=== PATIENT | female | born 1995 | race Caucasian/White ===

== ENCOUNTER → 2018-03-22 18:51 | Outpatient (CLI) | payer BC, SELFPAY ==
[2018-03-22 16:55] VITALS: BMI 20.4
[2018-03-22 21:42] LABS: Chlamydia Trachomatis by PCR Negative (Negative); Neisserai gonorrhoeae by PCR Negative (Negative); Probe Check PASS; Sample Adequacy Control PASS; Specimen Processing Control PASS
[2018-03-26 08:36] LABS: HPV Reflexed? NOT INDICATED
== END ==
PROVIDERS: Family Provider Student in an Organized Health Care Education/Training Program; PCP Student in an Organized Health Care Education/Training Program; Referring Provider Nurse Practitioner Women's Health; Visit Provider Nurse Practitioner Women's Health
DX: Z34.90 Encounter for supervision of normal pregnancy, unspecified, unspecified trimester (principal); L93.0 Discoid lupus erythematosus; Z12.4 Encounter for screening for malignant neoplasm of cervix
CPT/HCPCS: 87086; 87088; 87491; 87591; 87624; 88175; G0145

== ENCOUNTER → 2018-03-23 13:08 | Outpatient (CLI) | payer BC, SELFPAY ==
[2018-03-22 16:55] VITALS: BMI 20.4
[2018-03-23 14:22] LABS: Absolute Lymphocyte Count 1.29 X10^3/ul (0.83-4.51); Absolute Neutrophil Count 2.6 X10^3/uL (2.0-7.7); Basophil# 0.02 X10^3/uL; Basophil% 0.5 % (0-1); Eosinophil# 0.05 X10^3/uL; Eosinophils% 1.1 % (0-5); Hematocrit 36.6 % (37-47); Hemoglobin 12.5 g/dl (12.0-15.0); Lymphocyte # 1.29 X10^3/ul (4.0); Lymphocyte % 29.1 % (19-41); Mean Corp Hgb Conc 34.2 g/gl (32-36); Mean Corpuscular Hgb 30.4 pg (27.0-32.0); Mean Corpuscular Volume 89.1 fL (81-99); Mean Platelet Vol. 9.8 fl (6.2-12.0); Monocyte# 0.46 X10^3/uL; Monocyte% 10.4 % (0-10); Neutrophil # 2.61 X10^3/uL (2.7-7.7); Neutrophil % 58.9 % (47-70); POSITIVE COUNT NO; POSITIVE DIFFERENTIAL NO; POSITIVE MORPHOLOGY NO; Platelet Count 249 K/mm3 (150-450); RBC Distribution Width CV 12.4 % (11.6-14.6); RBC Distribution Width SD 39.6 fl (35.1-43.9); Red Blood Count 4.11 M/mm3 (4.2-5.4); White Blood Count 4.4 K/mm3 (4.4-11.0)
[2018-03-23 14:30] LABS: ALB/GLOB Ratio 1.2 RATIO (0.9-2.4); AST(SGOT) 12 U/L (15-37); Alanine Aminotransfer ALT/SGPT 22 U/L (13-56); Albumin, Serum 3.7 g/dL (3.2-5.0); Alkaline Phosphatase 53 U/L (45-117); Anion Gap 10 (5-15); BUN 9 mg/dL (7-18); BUN/Creat Ratio 14.1 RATIO (10-20); Calcium,Total 8.7 mg/dL (8.5-10.1); Chloride 105 mmol/L (98-107); Creatinine, Serum 0.64 mg/dL (0.55-1.02); EST Glomerular Filtration Rate 121 mL/min (>60); Est Glom Filt Rate - Afr Amer 146 mL/min (>60); Globulin 3.1 g/dL (2.2-4.2); Glucose 51 mg/dL (74-106); Potassium 3.5 mmol/L (3.5-5.1); Protein, Total 6.8 g/dL (6.4-8.2); Sodium Level 140 mmol/L (136-145)
[2018-03-23 14:32] LABS: Protein, Urine (Random) 6.3 mg/dL (<11.9); Protein:Creat Ratio 77 mg/g CRE (0-200)
[2018-03-23 15:15] LABS: HIV - WCH Non-Reactive (Nonreactive); Rubella IgG 467.5 IU/mL
[2018-03-25 14:06] LABS: Dilute Prothrombin Time (dPT) 35.3 sec (0.0-55.0); Dilute Russell Viper Venom 33.5 sec (0.0-47.0)
[2018-03-26 02:02] LABS: Rapid Plasmin Reagin (RPR) NONREACTIVE (NONREACTIVE)
[2018-03-26 08:30] LABS: HEPATITIS B SURFACE AG Negative (Negative); Interpretation Comment: (.)
== END ==
PROVIDERS: Nurse Practitioner Women's Health; Family Provider Student in an Organized Health Care Education/Training Program; PCP Student in an Organized Health Care Education/Training Program; Referring Provider Nurse Practitioner; Visit Provider Nurse Practitioner
DX: O26.899 Other specified pregnancy related conditions, unspecified trimester (principal); L93.0 Discoid lupus erythematosus; Z3A.00 Weeks of gestation of pregnancy not specified
CPT/HCPCS: 36415; 80053; 82570; 84156; 85025; 86592; 86703; 86762; 86850; 86900; 87340

== ENCOUNTER → 2018-05-12 14:10 | Outpatient (CLI) | payer BC, SELFPAY ==
[2018-04-19 11:02] VITALS: BMI 20.4
== END ==
PROVIDERS: Family Provider Student in an Organized Health Care Education/Training Program; PCP Student in an Organized Health Care Education/Training Program; Referring Provider Nurse Practitioner Women's Health; Visit Provider Nurse Practitioner Women's Health
DX: Z31.430 Encounter of female for testing for genetic disease carrier status for procreative management (principal); Z34.81 Encounter for supervision of other normal pregnancy, first trimester
CPT/HCPCS: 36415

== ENCOUNTER → 2018-08-09 | Outpatient (CLI) | payer BC, SELFPAY ==
[2018-08-09 14:35] VITALS: BMI 23.7
[2018-08-09 15:23] LABS: Absolute Lymphocyte Count 1.17 X10^3/ul (0.83-4.51); Absolute Neutrophil Count 5.8 X10^3/uL (2.0-7.7); Basophil# 0.01 X10^3/uL; Basophil% 0.1 % (0-1); Eosinophil# 0.06 X10^3/uL; Eosinophils% 0.8 % (0-5); Hematocrit 34.1 % (37-47); Hemoglobin 11.6 g/dl (12.0-15.0); Lymphocyte # 1.17 X10^3/ul (4.0); Lymphocyte % 15.6 % (19-41); Mean Corpuscular Hgb 30.8 pg (27.0-32.0); Mean Corpuscular Volume 90.5 fL (81-99); Mean Platelet Vol. 9.1 fl (6.2-12.0); Monocyte# 0.43 X10^3/uL; Monocyte% 5.7 % (0-10); Neutrophil # 5.79 X10^3/uL (2.7-7.7); Neutrophil % 77.3 % (47-70); Platelet Count 215 K/mm3 (150-450); RBC Distribution Width SD 42.5 fl (35.1-43.9); Red Blood Count 3.77 M/mm3 (4.2-5.4); White Blood Count 7.5 K/mm3 (4.4-11.0)
[2018-08-09 15:24] LABS: POSITIVE COUNT NO; POSITIVE DIFFERENTIAL NO; POSITIVE MORPHOLOGY NO
[2018-08-09 15:33] LABS: Glucose Challenge Gest 1H 50g 140 mg/dL (70-140)
== END | disposition home or self-care (01) ==
PROVIDERS: Family Provider Student in an Organized Health Care Education/Training Program; PCP Student in an Organized Health Care Education/Training Program; Visit Provider Nurse Practitioner Women's Health
DX: Z34.90 Encounter for supervision of normal pregnancy, unspecified, unspecified trimester (principal)
CPT/HCPCS: 36415; 82950; 85025

== ENCOUNTER → 2018-08-17 | Outpatient (CLI) | payer BC, SELFPAY ==
[2018-08-09 14:35] VITALS: BMI 23.7
[2018-08-17 13:05] LABS: Glucose GTT-Gestational 1 Hr 106 mg/dL (<190)
[2018-08-17 13:05] LABS: Glucose GTT-Gestation. Fasting 72 mg/dL (<105)
[2018-08-17 13:14] LABS: Glucose GTT-Gestational 2 Hr 76 mg/dL (<165)
[2018-08-17 14:22] LABS: Glucose GTT-Gestational 3 Hr 93 L (<145)
== END | disposition home or self-care (01) ==
LOC: LAB 09:58
PROVIDERS: Family Provider Student in an Organized Health Care Education/Training Program; PCP Student in an Organized Health Care Education/Training Program; Referring Provider Obstetrics & Gynecology; Visit Provider Obstetrics & Gynecology
DX: O99.810 Abnormal glucose complicating pregnancy (principal); Z3A.00 Weeks of gestation of pregnancy not specified
CPT/HCPCS: 36415; 82951; 82952

== ENCOUNTER → 2018-10-11 | Outpatient (CLI) | payer BC, SELFPAY ==
[2018-10-11 14:00] VITALS: BMI 23.7
== END | disposition home or self-care (01) ==
LOC: LABSPEC 16:57
PROVIDERS: Family Provider Student in an Organized Health Care Education/Training Program; PCP Student in an Organized Health Care Education/Training Program; Referring Provider Obstetrics & Gynecology; Visit Provider Obstetrics & Gynecology
DX: Z34.93 Encounter for supervision of normal pregnancy, unspecified, third trimester (principal)
CPT/HCPCS: 87081

== ENCOUNTER 2018-10-28 16:27 | Outpatient (CLI) | payer BC, MEDICAID, SELFPAY ==
[2018-10-25 13:20] VITALS: BMI 26.7
[2018-10-28 17:11] VITALS: BMI 26.2
--- NOTE | 2018-11-03 02:53 | OB.TRI.PN ---
Progress Notes Date of Service: 10/28/18 Progress Note: decreased movememnt fht 130 moderate variability reactive no decelerations category I tracing [place]: no regular a/p decreased movememnt reactive nst dc home kick counts
== END 2018-10-28 18:05 | disposition home or self-care (01) ==
LOC: WPOUT 16:45 → WP 16:46
PROVIDERS: Family Provider Student in an Organized Health Care Education/Training Program; PCP Student in an Organized Health Care Education/Training Program; Referring Provider Obstetrics & Gynecology; Visit Provider Obstetrics & Gynecology
DX: O36.8190 Decreased fetal movements, unspecified trimester, not applicable or unspecified (principal); Z3A.00 Weeks of gestation of pregnancy not specified
CPT/HCPCS: 59025; 59050; 99218; G0378

== ENCOUNTER → 2018-11-01 14:05 | Outpatient (CLI) | payer BC, MEDICAID, SELFPAY ==
[2018-10-25 13:20] VITALS: BMI 26.7
[2018-10-28 17:11] VITALS: BMI 26.2
--- NOTE | 2018-11-01 14:07 | US_ITS ---
STUDY: SECOND AND THIRD TRIMESTER OBSTETRICAL ULTRASOUND - LIMITED REASON FOR EXAM: Female, 23 years old. Routine survey. LMP: Unknown. PRIOR ULTRASOUND: None. TECHNIQUE: Transabdominal TECHNICAL QUALITY: Adequate. FINDINGS: There is a single intrauterine fetus. The fetus is in a cephalic presentation. There is demonstrated cardiac activity with a heart rate of 140 bpm. There is a normal amniotic fluid volume. The largest amniotic fluid pocket measures 5.4 cm. The amniotic fluid index (YUNG) is 10.83 cm. The placenta is anterior in location and is not low lying. There are Grade 2 placental changes. The cervix measures 4.2 cm in length. BIOMETRY: BPD: 8.89 cm: 36 weeks, 0 days HC: 31.53 cm: 35 weeks, 3 days AC: 33.81 cm: 37 weeks, 5 days FL: 7.54 cm: 38 weeks, 4 days age by current US: 37 weeks, 0 days. BACILIO by current US: 11/22/2018. Estimated weight: 3208 grams, +/- 468 grams, 28 percentile. Gender: Indeterminant US/OB Limited With Biometrics IMPRESSION: Single live intrauterine at 37 weeks, 0 days by current ultrasound with BACILIO of 11/22/2018. Heart rate 140 bpm. No suspicious sonographic findings Electronically Signed: Danis Brown MD at 16:21 EDT , Service support ,
== END ==
PROVIDERS: Family Provider Student in an Organized Health Care Education/Training Program; PCP Student in an Organized Health Care Education/Training Program; Referring Provider Obstetrics & Gynecology; Visit Provider Obstetrics & Gynecology
DX: Z34.00 Encounter for supervision of normal first pregnancy, unspecified trimester (principal)
CPT/HCPCS: 76816

== ENCOUNTER → 2018-11-03 | Outpatient (CLI) | payer BC, MEDICAID, SELFPAY ==
[2018-11-03 08:44] VITALS: BMI 26.2
--- NOTE | 2018-11-03 11:33 | US_ITS ---
STUDY: SECOND AND THIRD TRIMESTER OBSTETRICAL ULTRASOUND - LIMITED REASON FOR EXAM: Female, 23 years old. Amniotic fluid index only. LMP: January 31, 2018. PRIOR ULTRASOUND: Comparison is made with prior examination dated November 01, 2018. TECHNIQUE: Transabdominal TECHNICAL QUALITY: Adequate. FINDINGS: There is a single intrauterine fetus. The fetus is in a cephalic presentation. There is demonstrated cardiac activity with a heart rate of 129 bpm. There is a normal amniotic fluid volume. The largest amniotic fluid pocket measures 4.8 cm. The amniotic fluid index (YUNG) is 10.8 cm. The placenta is anterior in location and is not low lying. There are Grade 2 placental changes. The cervix was not measured due to positioning. Age by LMP: 39 weeks, 3 days. BACILIO by LMP: November 07, 2018. age by prior US: 37 weeks, 2 days. BACILIO by prior US: November 22, 2018. US/OB Limited (No Biometrics) IMPRESSION: Normal amniotic fluid. Electronically Signed: Tal Zhao, at 10:43 EDT , Service support ,
== END | disposition home or self-care (01) ==
LOC: OPUS 11:32
PROVIDERS: Family Provider Student in an Organized Health Care Education/Training Program; PCP Student in an Organized Health Care Education/Training Program; Referring Provider Obstetrics & Gynecology; Visit Provider Obstetrics & Gynecology
DX: Z34.93 Encounter for supervision of normal pregnancy, unspecified, third trimester (principal)
CPT/HCPCS: 76815

== ENCOUNTER 2018-11-09 13:58 | Inpatient (IN) | payer BC, MEDICAID, SELFPAY ==
[2018-11-09 13:32] VITALS: BMI 26.2
[2018-11-09 16:14] VITALS: BMI 27.3
[2018-11-09] MEDS: Lactated Ringers 1,000 ML 50 ML IV ×3 (16:18→23:14)
[2018-11-09] MEDS: Oxytocin 30 units/NS 500 ml 30 UNITS/500 ML IV.SOLN IV (16:30)
[2018-11-09 16:41] LABS: Absolute Lymphocyte Count 1.54 X10^3/ul (0.83-4.51); Absolute Neutrophil Count 7.7 X10^3/uL (2.0-7.7); Basophil# 0.02 X10^3/uL; Basophil% 0.2 % (0-1); Eosinophil# 0.06 X10^3/uL; Eosinophils% 0.6 % (0-5); Hematocrit 37.4 % (37-47); Hemoglobin 12.8 g/dl (12.0-15.0); Lymphocyte # 1.54 X10^3/ul (4.0); Lymphocyte % 15.1 % (19-41); Mean Corp Hgb Conc 34.2 g/gl (32-36); Mean Corpuscular Hgb 30.1 pg (27.0-32.0); Mean Platelet Vol. 10.4 fl (6.2-12.0); Monocyte% 7.8 % (0-10); Neutrophil # 7.69 X10^3/uL (2.7-7.7); Neutrophil % 75.3 % (47-70); Platelet Count 227 K/mm3 (150-450); RBC Distribution Width CV 13.3 % (11.6-14.6); RBC Distribution Width SD 41.7 fl (35.1-43.9); Red Blood Count 4.25 M/mm3 (4.2-5.4); White Blood Count 10.2 K/mm3 (4.4-11.0)
[2018-11-09 16:44] LABS: POSITIVE COUNT NO; POSITIVE DIFFERENTIAL NO; POSITIVE MORPHOLOGY NO
[2018-11-09] MEDS: Nalbuphine 10 MG/ML Ampul IV (18:32)
[2018-11-09] MEDS: Ondansetron 4 MG/2 ML Vial IV (19:36)
[2018-11-09] MEDS: fentaNYL-bupivacaine (epidural) 100 ML BAG EPIDURAL (22:55)
--- NOTE | 2018-11-09 23:09 | HP.PCM_ITS ---
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 anatomy us- bl choroid plexus cysts, nl (7) Supervision of normal first Status: Acute Qualifiers: Comment: PRR BACILIO 11/07/18 girl Black INGRID Maldonado History and Physical Date of Admission: 11/09/18 Intake Vital Signs 11/09/18 Body Mass Index (BMI) 26.2 11/09/18 Height 5 ft 4 in 11/09/18 Weight: 159 lb 8 oz 11/09/18 Body Mass Index (BMI) 27.3 11/09/18 Blood Pressure 130/72 H 11/09/18 Blood Pressure Location Rt brachial 10/18/18 Body Mass Index (BMI) 26.7 Intake Visit Reasons: 41 WEEK OB Medical Services Assistant Required: No Is patient in pain?: No Allergies No Known Allergies Allergy (Verified 11/09/18 13:32) Medications vitamin,calcium,thtaanwv-jzit-ttmnb acid tablet 1 tab PO DAILY 03/22/18 [History Confirmed 11/09/18] Last Menstral Period: 01/12/18 Zika: Zika virus screening: Negative : No PFSH PFSH Medical History Anxiety (Acute) Depression (Acute) Discoid lupus (Acute) Surgical History H/O foot surgery (Acute) Family History Grandmother Multiple sclerosis Grandfather Cancer Social History (Updated 11/09/18 @ 13:55 by Lucy Ashley MD) current occupational status: employed current occupation: [employer] Smoking Status: Never smoker alcohol intake: never substance use type: does not use what type of physical activity do you participate in: none seatbelt use: always do you feel safe at home: Yes additional social history: [employer] [facility] Pregancy History 1 Elective abortions Hx Para Spontaneous abortions Hx # Term Pregnancies Ectopic pregnancies Hx # Pregnancies Multiple births # of living children HPI 41 WEEK OB: Details: LETTY ANDREA is a 23 year old who presents for routine OB visit. fundal height is low and yung in office today is oligohydramnios at 5 cm OB Visit BACILIO Calculator Estimated Delivery Date Method Current WG Current Estimate 11/07/18 Ultrasound #1 40w 2d Expected Delivery Route/Plan Specific Issue/Plans flu vaccine: given tdap vaccine: given rhogam: na LARC form signed: declines labor support person: Colt pain management: epidural cut cord/dad catch: yes : yes PP control planned: considering monika special requests: [] Initial Weight: 125 lb Date EGA Weight BP Urine Prot Glucose FHR FuHt Pres Mov CTX Dilation Effaced St Visit Note 04/19/18 11w 1d 124 lb 4 oz (-12 oz) 116/64 Negative Negative 166 No VB, LOF, cramping. Nausea improved. Fatigue persists 05/17/18 15w 1d 123 lb (-2 lb) 112/72 Negative Negative 150 no vb cramping NIPT drawn last week- await results. discussed NTD- considering 06/14/18 19w 1d 131 lb 4 oz (+6 lb 4 oz) 92/70 145 no vb lof good fm no regular ctx 07/12/18 23w 1d 138 lb 2 oz (+13 lb 2 oz) 110/68 Negative Negative 145 23 Active no vb cramping good fm 08/09/18 27w 1d 142 lb 8 oz (+17 lb 8 oz) 110/60 Negative Negative 144 27 Active absent No VB, LOF Doing well 08/24/18 29w 2d 145 lb 2 oz (+20 lb 2 oz) Negative Negative 130 30 Active no vb lof good fm, no regular ctx 09/06/18 31w 1d 146 lb 4 oz (+21 lb 4 oz) 108/70 Negative Negative 135 32 Active no vb lof good fm no reuglar ctx 09/20/18 33w 1d 149 lb 4 oz (+24 lb 4 oz) 124/68 Negative Negative 120 34 Active no vb lof good fm no regular ctx 10/01/18 34w 5d 150 lb 2 oz (+25 lb 2 oz) 116/90 112/78 Negative Negative 130 35 Active no vb lof good fm n oregular ctx 10/11/18 36w 1d 153 lb (+28 lb) 114/82 125 36 Cephalic Active 1 2: 0 -4 no vb lof good fm no regu lar ctx gbs today 10/18/18 37w 1d 156 lb (+31 lb) 130/88 Negative Negative 144 37 Cephalic Active 1: . -4 No regular CTX. NO VB, LO F. Good FM 10/25/18 38w 1d 157 lb (+32 lb) 104/82 Negative Negative 140 37 Cephalic Active 1 Yes -3 co back pain, no vb lof good fm no re gular ctx. 11/03/18 39w 3d 159 lb (+34 lb) 114/82 Negative Negative 140 37 Cephalic Active absent 2 Yes no vb lof good fm n oregular ctx no vb lof good fm n oregular ctx very uncomfortable signfiicant back pain. nl growth us last week. recommend checking YUNG due to FH measurment. plan IOL ne xt week fb/pitocin 11/09/18 40w 2d 159 lb 8 oz (+34 lb 8 oz) 130/72 140 37 Cephalic Active occasional 2.5 Yes -2 no vb lof good fm no regular ctx Visit Notes Visit Date: 11/09/18 ??no vb lof good fm no regular ctx ??Lucy Ashley MD on 11/09/18 Visit Date: 11/03/18 ??no vb lof good fm n oregular ctx very uncomfortable signfiicant back pain. nl growth us last week. recommend checking YUNG due to FH measurment. plan IOL next week fb/pitocin ??Lucy Ashley MD on 11/03/18 ??no vb lof good fm n oregular ctx ??Lucy Ashley MD on 11/03/18 Visit Date: 10/25/18 ??co back pain, no vb lof good fm no regular ctx. ??Lucy Ashley MD on 10/25/18 Visit Date: 10/18/18 ??No regular CTX. NO VB, LOF. Good FM ??SUSAN Khan on 10/18/18 Visit Date: 10/11/18 ??no vb lof good fm no regular ctx gbs today ??Lucy Ashley MD on 10/11/18 Visit Date: 10/01/18 ??no vb lof good fm n oregular ctx ??Lucy Ashley MD on 10/01/18 Visit Date: 09/20/18 ??no vb lof good fm no regular ctx ??Lucy Ashley MD on 09/20/18 Visit Date: 09/06/18 ??no vb lof good fm no reuglar ctx ??Lucy Ashley MD on 09/06/18 Visit Date: 08/24/18 ??no vb lof good fm, no regular ctx ??Lucy Ashley MD on 08/24/18 Visit Date: 08/09/18 ??No VB, LOF Doing well ??Marian Solomon NP-C on 08/09/18 Visit Date: 07/12/18 ??no vb cramping good fm ??Lucy Ashley MD on 07/12/18 Visit Date: 06/14/18 ??no vb lof good fm no regular ctx ??Lucy Ashley MD on 06/14/18 Visit Date: 05/17/18 ??no vb cramping NIPT drawn last week- await results. discussed NTD- considering ??Lucy Ashley MD on 05/17/18 Visit Date: 04/19/18 ??No VB, LOF, cramping. Nausea improved. Fatigue persists ??ROLLY KhanC on 04/19/18 ACOG First Trimester First Trimester: Desire for , Alcohol, Tobacco Cessation, Illicit/Recreational Drug/Substance Use, Intimate Partner Violence, Barriers to care, Unstable Housing, Communication Barriers, Environmental/Work Hazards, Anticipated Course of Care, Toxoplasmosis Precations, Use of Any medications, Sexual activity, Exercise, Dental Care, Sauna/Hot tub use, Seat Belt use, Childbirth classes/Hospital facilities, , Travel, Indications for US and Screening for Aneuploidy Second Trimester Second Trimester: Signs and Symptoms of Labor, Selecting a care provider, Reproductive Life Planning, Care Planning, Tobacco Cessation, Depression/Anxiety and Intimate Partner Violence Third Trimester Third Trimester: Pain Management Plans, Labor support person(s), Immediate Larc, Movement Monitoring and Feeding Yes B reastfeeding; discussed Trial of Labor after Counseling or discussed Circumcision preference Diagnostics Diagnostics Labs Hct 34.1 % (37-47) L 08/09/18 Hgb 11.6 g/dl (12.0-15.0) L 08/09/18 Obstetrics Ultrasound 11/03/18 Glucose 1 Hr 50 gm 140 mg/dL (70-140) 08/09/18 Details: HIV: Urine Culture: Sequential Screen: NIPT Screen: ROS Const Reports system reviewed and no additional complaints, except as docu Card Reports system reviewed and no additional complaints, except as docu Resp Reports system reviewed and no additional complaints, except as docu GI Reports system reviewed and no additional complaints, except as docu, Reports nausea Reports system reviewed and no additional complaints, except as docu Musc Reports system reviewed and no additional complaints, except as docu Exam Const General: cooperative, healthy appearing, comfortable, anxious HENMT Head: normal to inspection Nose: external nose normal Face and sinus: normal facial exam Neck Neck: normal visual inspection, full ROM, no lymphadenopathy Thyroid: thyroid normal Chest Chest palpation & inspection: normal inspection of the chest Resp Effort & Inspection: normal respiratory effort GI Inspection: normal to inspection Palpation: soft, other (gravid uterus) Other: vertex and appropriate size for gestational age Other: Cervical Exam: Extrem General: pedal edema Assessment & Plan Problems 1. Abnormal glucose complicating puerperium O99.815 3 hr GTT- normal 2. Encounter for supervision of normal first in third trimester Z34.03 PRR BACILIO 11/07/18 girl Black BF Colt Maldonado 3. 38 weeks gestation of Z3A.38 NIPT- low risk-female, carrier, ntd screening declined. anatomy us- bl choroid plexus cysts, nl 4. Depression with anxiety F41.8 no meds 5. Exercise-induced asthma J45.990 6. Discoid lupus L93.0 Lupus panel neg Plan plan IOL oligohydramnios plan pitocin and epi PRN Orders Orders: POC Urinalysis 2 Dip (Clinic) Today Coding Level of Care Code OB Routine Diagnoses Abnormal glucose complicating puerperium O99.815 Encounter for supervision of normal first in third trimester Z34.03 ??Trimester: third trimester 38 weeks gestation of Z3A.38 ??Weeks of gestation: 38 weeks Depression with anxiety F41.8 Exercise-induced asthma J45.990 Discoid lupus L93.0 UPDATE- I have seen the patient and performed any clinically relevant updates to the history and physical exam. Lucy Ashley MD
[2018-11-10] MEDS: Ondansetron 4 MG/2 ML Vial IV (01:15)
[2018-11-10] MEDS: fentaNYL-bupivacaine (epidural) 100 ML BAG EPIDURAL (02:39)
[2018-11-10] MEDS: Oxytocin 30 units/NS 500 ml 30 UNITS/500 ML IV.SOLN 334 UNITS IV (04:17)
[2018-11-10] MEDS: Oxytocin 30 units/NS 500 ml 30 UNITS/500 ML IV.SOLN 167 UNITS IV (04:47)
[2018-11-10] MEDS: Naproxen 250 MG Tablet 500 MG PO (07:31)
[2018-11-10 08:10] VITALS: BP 104/56; PULSE 88; RESP 20; TEMP 37.3; O2SAT 95
--- NOTE | 2018-11-10 09:04 | PCM.OPRPT ---
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 anatomy us- bl choroid plexus cysts, nl (7) Supervision of normal first Status: Acute Qualifiers: Comment: PRR BACILIO 11/07/18 girl Black BF Colt Malodnado Vaginal Delivery Maternal Presentation: Active Labor iol oligo 40w3d Method of Induction: Pitocin Amniotic Membrane Rupture Type: Artificial Amniotic Fluid Description: Clear Final BACILIO: 11/07/18 Gestational age: 40 Weeks and 3 Days Date of Procedure: 11/10/18 Pre-Operative Diagnosis: iol oligo Post-Operative Diagnosis: same Surgery/ Procedure Performed: Spontaneous Vaginal Delivery Type of Anesthesia: Epidural Description of Procedure: Patient began pushing and delivered the head in the KARLA presentation. The head was delivered atraumatically. The anterior and posterior shoulders delivered without complication followed by the rest of the and the was placed on the maternal abdomen. Delayed cord clamping was employed for approximately 60 seconds. Cord was clamped and cut and gentle traction was applied to the cord and the placenta delivered spontaneously immediately following it was noted to be intact with three-vessel cord. The perineum and vagina were inspected and noted to have a small 1st degree perineal laceration repaired with 3-0 vicryl rapide. EBL was 300 cc. Patient and infant tolerated delivery well. Presentation: KARLA Placental Delivery Description: Spontaneous Placenta Disposition: [facility] Cord Vessel Description: 3 Vessels Cord Entanglement: None Estimated Blood Loss: 300 Infant A gender: Female Episiotomy Description: None Laceration: Perineal Extension/lac, 1st degree Medications given after delivery: IV Pitocin Complications: None
[2018-11-10 13:10] VITALS: BP 109/70; PULSE 70; TEMP 36.8
[2018-11-10 15:30] VITALS: BP 101/64; PULSE 79; TEMP 36.5
[2018-11-10 20:02] VITALS: BP 107/77; PULSE 72; RESP 18; TEMP 36.2; O2SAT 97
[2018-11-11 00:15] VITALS: BP 115/71; PULSE 83; RESP 16; TEMP 36.6
[2018-11-11] MEDS: Naproxen 250 MG Tablet 500 MG PO ×3 (00:31→20:10)
[2018-11-11 04:55] VITALS: BP 106/76; PULSE 86; RESP 18; TEMP 36.5
[2018-11-11 08:00] VITALS: BP 109/72; PULSE 81; RESP 14; TEMP 36.6
[2018-11-11 12:00] VITALS: BP 113/70; PULSE 94; RESP 14; TEMP 36.6
--- NOTE | 2018-11-11 12:07 | PCM.PN.OB ---
Patient Problems: Active and Suspected Problems (Last Reviewed 11/09/18 @ 13:25 by Kaley Brown) Oligohydramnios (Acute) Subjective: doing well no complaints pain controlled no CP SOB N V ambulating well tolerating po lochia moderate, going well - Physical Exam General: Alert, Oriented x3 Vital Signs Temp Pulse Resp BP Pulse Ox 97.8 F 81 14 109/72 97 11/11/18 08:00 11/11/18 08:00 11/11/18 08:00 11/11/18 08:00 11/10/18 20:02 Oxygen Delivery Method Room Air Weight: 159 lb Body Mass Index (BMI) 27.3 Intake and Output for Last 24 Hours 11/09/18 11/10/18 11/11/18 23:59 23:59 23:59 Intake Total 2290 / 2290 1707 / 1707 Output Total 1000 / 1000 2200 / 2200 Balance 1290 / 1290 -493 / -493 Medical Necessity - Tobacco Use Smoking Status: Never smoker Assessment/Plan All Active Problems (Last Reviewed 11/09/18 @ 13:25 by Kaley Brown) Oligohydramnios (Acute) Abnormal glucose complicating puerperium (Acute) Supervision of normal first (Acute) (Acute) Depression with anxiety (Acute) Exercise-induced asthma (Acute) Discoid lupus (Acute) Nausea/vomiting in (Resolved) s/p PPD # 1 1. routine post delivery care 2. breast feeding- support given 3. rh positive 4. rubella immune
[2018-11-11] MEDS: Senna/Docusate Sodium 1 Tablet PO (20:10)
[2018-11-11 20:12] VITALS: BP 102/69; PULSE 86; RESP 16; TEMP 37.3; O2SAT 98
--- NOTE | 2018-11-12 01:56 | DCINST_ITS ---
Discharge Diet: No Restrictions Discharge Activity: Return to Normal Activity, May not drive while taking narcotic pain medications., May Shower May resume sexual activity in: 4-6 weeks Call your doctor if your incision/area has: Continuous Slow Oozing, Sudden Increased Bleeding, Increased Pain/ Swelling, Increased Redness, Foul Smelling Discharge Additional Instructions: If you experience any of the following, contact your healthcare provider. * Bleeding that soaks a pad every hour for 2 hours * Fever 100.4 or higher * Unrelieved incision or abdominal pain * Swelling, redness, discharge or bleeding from your incision or episiotomy site * Your incision begins to separate * Problems urinating (including inability to urinate or burning while urinating). * Visual changes * Severe headache * Flu-like symptoms * Pain or redness in one of both of your breasts * Pain, warmth, tenderness or swelling in your legs, especially the calf area * Frequent nausea and vomiting * Symptoms of depression or anxiety If you experience any of the following, call 911 or go to the nearest Emergency Room. * Chest pain * Problems breathing * Seizure activity * Partial or complete paralysis of a body part, slurred speech, weakness or drooping of the face, or a sudden inability to walk or hold your balance Allergies/Adverse Reactions: Allergies No Known Allergies Allergy (Verified 11/09/18 13:32) Medications to take at Discharge vitamin,calcium,zmujxdbr-jrgt-dymem acid tablet 1 tab PO DAILY 03/22/18 Naproxen [Naprosyn] 250 - 500 mg PO Q8H PRN PRN #30 tab 11/12/18 The following prescriptions were given: Naproxen [Naprosyn] 250 - 500 mg PO Q8H PRN PRN #30 tab PRN Reason: MILD PAIN Transmission Status: Pending to [facility] Please Follow Up With: Lucy Ashley MD - [phone] When: Call to make an appointment with your doctor in 6 weeks. If you had elevated Blood pressure or 4th degree laceration you will need to be seen in 2 weeks. Primary Care Physician: Kenneth Marti DO [Primary Care Provider] - Test Results: Test results from this visit will be discussed in further detail at your follow- up appointment, if applicable.
--- NOTE | 2018-11-12 01:56 | PCM.DCVAG ---
Discharge Diet: No Restrictions Discharge Activity: Return to Normal Activity, May not drive while taking narcotic pain medications., May Shower May resume sexual activity in: 4-6 weeks Call your doctor if your incision/area has: Continuous Slow Oozing, Sudden Increased Bleeding, Increased Pain/ Swelling, Increased Redness, Foul Smelling Discharge Additional Instructions: If you experience any of the following, contact your healthcare provider. Bleeding that soaks a pad every hour for 2 hours Fever 100.4 or higher Unrelieved incision or abdominal pain Swelling, redness, discharge or bleeding from your incision or episiotomy site Your incision begins to separate Problems urinating (including inability to urinate or burning while urinating). Visual changes Severe headache Flu-like symptoms Pain or redness in one of both of your breasts Pain, warmth, tenderness or swelling in your legs, especially the calf area Frequent nausea and vomiting Symptoms of depression or anxiety If you experience any of the following, call 911 or go to the nearest Emergency Room. Chest pain Problems breathing Seizure activity Partial or complete paralysis of a body part, slurred speech, weakness or drooping of the face, or a sudden inability to walk or hold your balance Allergies/Adverse Reactions: Allergies No Known Allergies Allergy (Verified 11/09/18 13:32) Medications to take at Discharge vitamin,calcium,thmcjbuv-kwvy-vumiy acid tablet 1 tab PO DAILY 03/22/18 Naproxen [Naprosyn] 250 - 500 mg PO Q8H PRN PRN #30 tab 11/12/18 The following prescriptions were given: Naproxen [Naprosyn] 250 - 500 mg PO Q8H PRN PRN #30 tab PRN Reason: MILD PAIN Transmission Status: Pending to [facility] Please Follow Up With: Lucy Ashley MD - [phone] When: Call to make an appointment with your doctor in 6 weeks. If you had elevated Blood pressure or 4th degree laceration you will need to be seen in 2 weeks. Primary Care Physician: Kenneth Marti DO [Primary Care Provider] - Test Results: Test results from this visit will be discussed in further detail at your follow-up appointment, if applicable.
[2018-11-12 02:27] VITALS: BP 111/65; PULSE 81; RESP 16; TEMP 36.5; O2SAT 98
[2018-11-12 08:00] VITALS: BP 116/80; PULSE 76; RESP 16; TEMP 36.6
--- NOTE | 2018-11-12 08:37 | PCM.PN.OB ---
Patient Problems: Active and Suspected Problems (Last Reviewed 11/09/18 @ 13:25 by Kaley Brown) Oligohydramnios (Acute) Subjective: doing well no complaints pain controlled no CP SOB N V ambulating well tolerating po lochia moderate, going well - Physical Exam General: Alert, Oriented x3 Abdomen: Soft, Non Tender, Non-Distended, - - FF below U Vital Signs Temp Pulse Resp BP Pulse Ox 97.8 F 76 16 116/80 98 11/12/18 08:00 11/12/18 08:00 11/12/18 08:00 11/12/18 08:00 11/12/18 02:27 Oxygen Delivery Method Room Air Weight: 159 lb Body Mass Index (BMI) 27.3 Intake and Output for Last 24 Hours 11/10/18 11/11/18 11/12/18 23:59 23:59 23:59 Intake Total 1707 / 1707 Output Total 2200 / 2200 Balance -493 / -493 Medical Necessity - Tobacco Use Smoking Status: Never smoker Assessment/Plan All Active Problems (Last Reviewed 11/09/18 @ 13:25 by Kaley Brown) Oligohydramnios (Acute) Abnormal glucose complicating puerperium (Acute) Supervision of normal first (Acute) (Acute) Depression with anxiety (Acute) Exercise-induced asthma (Acute) Discoid lupus (Acute) Nausea/vomiting in (Resolved) s/p PPD # 2 1. routine post delivery care 2. breast feeding- support given 3. rh positive 4. rubella immune 5. home today
[2018-11-12 08:39] VITALS: BP 116/83; PULSE 79; RESP 18; TEMP 36.9
[2018-11-12] MEDS: Naproxen 250 MG Tablet 500 MG PO (09:35)
== END 2018-11-12 12:45 | disposition home or self-care (01) | DRG 807 ==
PROVIDERS: Admitting Provider Obstetrics & Gynecology; Family Provider Student in an Organized Health Care Education/Training Program; PCP Student in an Organized Health Care Education/Training Program; Referring Provider Obstetrics & Gynecology; Visit Provider Obstetrics & Gynecology
DX: O41.03X0 Oligohydramnios, third trimester, not applicable or unspecified (principal); Z37.0 Single live birth; O48.0 Post-term pregnancy; Z3A.40 40 weeks gestation of pregnancy; O70.0 First degree perineal laceration during delivery; O99.344 Other mental disorders complicating childbirth; F41.8 Other specified anxiety disorders; O75.89 Other specified complications of labor and delivery; L93.0 Discoid lupus erythematosus; J45.990 Exercise induced bronchospasm
CPT/HCPCS: 59025; 59050; 85025; 86850; 86900; 99218; J7120; G0378; J2405

== ENCOUNTER → 2020-01-18 | Outpatient (CLI) | payer MEDICAID, SELFPAY ==
[2020-01-18 16:21] VITALS: BMI 23.6
[2020-01-18 18:52] LABS: hCG Titer Quant., Serum < 1 mIU/mL (1-3)
[2020-01-21 20:07] LABS: Chlamydia By Nucleic Acid AMP Negative (Negative)
[2020-01-21 20:51] LABS: Gonococcus By Nucleic Acid AMP Negative (Negative)
== END | disposition home or self-care (01) ==
LOC: INT LAB 17:19
PROVIDERS: PCP Student in an Organized Health Care Education/Training Program; Visit Provider Obstetrics & Gynecology
DX: N92.6 Irregular menstruation, unspecified (principal); Z11.3 Encounter for screening for infections with a predominantly sexual mode of transmission
CPT/HCPCS: 36415; 84702; 87491; 87591

== ENCOUNTER 2020-01-31 10:28 | Day surgery (SDC) | payer MEDICAID, SELFPAY ==
[2020-01-18 16:21] VITALS: BMI 23.6
--- NOTE | 2020-01-30 16:59 | PCM.HPOB.BLA ---
- Problem List (1) Contraception management Status: Acute Comment: IUD No PA. Reference number [id number] (2) Malpositioned IUD Status: Acute Qualifiers: History and Physical Date of Admission: 01/31/20 Intake Vital Signs 01/18/20 BMI 23.6 01/18/20 Height 5 ft 4 in 01/18/20 Weight: 129 lb 01/18/20 BMI 22.1 01/18/20 BP 110/70 Intake Visit Reasons: check IUD placement, may have shifted Chief Complaint: iud check Triage Licensed Practical Nurse Required: No Is patient in pain?: No Allergies No Known Allergies Allergy (Verified 01/18/20 16:20) Medications fluoxetine 20 mg capsule 20 mg PO DAILY 01/18/20 [History Confirmed 01/18/20] lamotrigine 100 mg tablet 100 mg PO DAILY 01/18/20 [History Confirmed 01/18/20] levonorgestrel 20.1 mcg/24 hrs (6 yrs) 52 mg intrauterine device 1 device INTRAUTERINE ONCE 01/18/20 [History Confirmed 01/18/20] Is last menstrual period known: No Post menopausal: No Patient : No : No PFSH Medical History Anxiety (Acute) Depression (Acute) Discoid lupus (Acute) Surgical History H/O foot surgery (Acute) Family History Grandmother Multiple sclerosis Grandfather Cancer Social History (Updated 01/19/20 @ 17:[address] Lucy Ashley MD) current occupational status: employed current occupation: [employer] Smoking Status: Never smoker alcohol intake: never substance use type: does not use what type of physical activity do you participate in: none seatbelt use: always do you feel safe at home: Yes additional social history: Single HPI check IUD placement, may have shifted: Details: LETTY ANDREA is a 24 year old who presents for increased bleeding and cramping. she previously wasn't having periods with it. she is wanting to have it removed and will use something else for control. Female Reproductive History Cycle Length: >35 Control Method: iud Questions: Sexually active: Yes, Dyspareunia: Yes (cramping), PCB: No Pregancy History 1 Elective abortions Hx Para 1 Spontaneous abortions Hx # Term Pregnancies 1 Ectopic pregnancies Hx # Pregnancies Multiple births # of living children 1 Past Pregnancies Del. Date Name GA/Weeks Outcome Route Bth Weight Infant Gen Labor Lgth Anesthesia Del Antonieta Provider FOB 11/09/18 Black 40 live - full term Female epidural [facility] Marcanthony Delivery Date: 11/09/18 On 11/11/18 @ 10:36 Lorraine Bales [place] ROS Const Constitutional: Denies fatigue, fever(s), headache(s), increased appetite, poor appetite, weight gain or weight loss Cardio Card: Denies chest pain Resp Resp: Denies cough or dyspnea GI GI: Reports as per HPI; denies abdominal pain, constipation, nausea or vomiting : Reports as per HPI; denies difficulty urinating, painful urination, nipple discharge, urinary frequency, urinary incontinence, urinary hesitancy, urinary urgency, vaginal discharge, vaginal dryness, vaginal odor or vaginal itching Skin Skin/Breast: Denies change in hair, breast lump, breast pain, breast skin changes or nipple discharge Exam Const General: cooperative, healthy appearing, comfortable, no acute distress, well developed Nutritional Appearance: average body habitus Orientation: alert [facility] Head: normal to inspection, normocephalic Neck Neck: normal visual inspection, trachea midline Thyroid: thyroid normal Resp Effort & Inspection: normal respiratory effort GI Inspection: normal to inspection, non-distended Palpation: soft, no hepatosplenomegaly General: bladder normal to palpation External Female Exam: normal external appearance, normal appearance of the urethra Urethra: normal appearance of the urethra, normal palpation, no discharge Speculum Exam - Vagina: normal appearance of the vagina, normal vaginal discharge Speculum Exam - Cervix: normal appearance of the cervix, nontender Bimanual Exam- Vagina & Uterus: normal bimanual exam, uterine size normal, bladder normal to palpation, uterine shape normal, No cervical tenderness, uterine mobility normal, uterine consistency normal, normal cervical palpation, uterus non-tender Bimanual Exam- Adnexa, other: normal adnexae, adnexae mobile, no adnexal masses, pelvic support normal Pelvic Support: normal Skin General: no rashes or lesions noted Assessment & Plan Problems 1. Malpositioned intrauterine device (IUD), initial encounter T83.32XA Plan initial attempts made at removal and only strings were removed. recommend surgical removal operative hysteroscopy possible diagnostic laparosocpy. After discussing the patient's diagnosis and treatment plan options, patient wishes to proceed with surgical management. I have discussed with the patient the risks, benefits, and alternatives of the procedure which include but are not limited to risks of anesthesia, bleeding, infection, possible damage to bowel, bladder, or surrounding vasculature which could lead to additional surgery to evaluate any complications. Patient agrees to procedure and wishes to proceed. ACOG/uptodate references given for additional information regarding procedure. Orders Orders: hCG Titer Quant., Serum 01/18/20 N92.6 Coding Level of Care Code Off vis,est,level 4 Diagnoses Malpositioned intrauterine device (IUD), initial encounter T83.32XA ??Encounter type: initial encounter /UPDATE- I have seen the patient and performed any clinically relevant updates to the history and physical exam. Lucy Ashley MD
[2020-01-31] VITALS (7 sets, daily range): BP systolic 100–118; BP diastolic 73–81; PULSE 56–76; RESP 16; TEMP 35.9–36.7; O2SAT 97–100; BMI 22.4
[2020-01-31 10:56] LABS: Internal QC Validated? YES +Cl - CLEAR BKGD; Pregnancy, Urine Negative Negative
[2020-01-31] MEDS: Lactated Ringers 1,000 ML 100 ML IV (11:00)
[2020-01-31 11:17] LABS: Hematocrit 42.2 % (37-47); Hemoglobin 14.3 g/dL (12.0-15.0); Mean Corp Hgb Conc 33.9 g/dL (32-36); Mean Corpuscular Volume 91.5 fL (81-99); Mean Platelet Vol. 9.7 fl (6.2-12.0); Platelet Count 292 K/mm3 (150-450); RBC Distribution Width CV 12.1 % (11.6-14.6); RBC Distribution Width SD 40.2 fl (35.1-43.9); Red Blood Count 4.61 M/mm3 (4.2-5.4); White Blood Count 4.4 K/mm3 (4.4-11.0)
--- NOTE | 2020-01-31 11:58 | PCM.OPRPT ---
Problem List (1) Contraception management Status: Acute Comment: IUD No PA. Reference number [id number] (2) Malpositioned IUD Status: Acute Qualifiers: Report of Operation Date of Procedure: 01/31/20 Pre-Operative Diagnosis: malpoitioned iud Post-Operative Diagnosis: same Surgery/Procedure Performed:: hysteroscopic iud removal Description of Surgical Findings:: endocervical iud placed Type of Anesthesia:: Local MAC Specimen's removed: iud Drains: none Estimated Blood Loss (mL): minimal Fluids Replaced: crystalloid Description of Procedure: Patient placed under MAC local anesthesia and prepped and draped in the normal sterile fashion in the dorsolithotomy position. Cervix was dilated to allow passage of a 5 mm hysteroscope the IUD was visualized at the top of the endocervical canal bent in half and it was attempted to pass an operative hysteroscopic instrument but was unable to thread the instrument therefore direct removal with a tonsil clamp was successful at removing IUD without complication. All instruments were removed from the vagina patient was awoken taken recovery in stable condition. there was no myometrial involvement Grafts/Implants Used: none - Complications none - Admit VTE Documentation VTE Present on Admission: No VTE Mechan Device Prophylaxis: SCD's Multi Select Codes - Urinary/Genital Urinary/Genital CPT Codes: 79849 Hysteroscopic removal of FB
--- NOTE | 2020-01-31 11:59 | DCINST_ITS ---
Discharge Diet: No Restrictions Discharge Activity: Return to Normal Activity, May Shower, May Take a Tub Bath Allergies/Adverse Reactions: Allergies No Known Allergies Allergy (Verified 01/20/20 12:48) Medications to take at Discharge fluoxetine 20 mg capsule 20 mg PO DAILY 01/18/20 lamotrigine 100 mg tablet 100 mg PO DAILY 01/18/20 levonorgestrel 20.1 mcg/24 hrs (6 yrs) 52 mg intrauterine device 1 device INTRAUTERINE ONCE 01/18/20 Bupropion HCl [Wellbutrin Sr] 200 mg PO BID 01/20/20 Quetiapine Fumarate [Seroquel] 25 mg PO PRN PRN 01/20/20 Primary Care Physician: Kenneth Marti DO [Primary Care Provider] - Test Results: Test results from this visit will be discussed in further detail at your follow- up appointment, if applicable. Please Follow Up With: Lucy Ashley MD - [phone]
== END 2020-01-31 14:19 | disposition home or self-care (01) ==
LOC: SDC 10:28 → AC 10:29
PROVIDERS: Anesthesiology; PCP Student in an Organized Health Care Education/Training Program; Referring Provider Obstetrics & Gynecology; Visit Provider Obstetrics & Gynecology
PROC: 0UDB8ZZ Extraction of Endometrium, Via Natural or Artificial Opening Endoscopic (ICD-10-PCS; CPT 58558; principal; 2020-01-31 11:45)
DX: T83.32XA Displacement of intrauterine contraceptive device, initial encounter (principal); F41.9 Anxiety disorder, unspecified; F32.9 Major depressive disorder, single episode, unspecified; L93.0 Discoid lupus erythematosus; Z79.899 Other long term (current) drug therapy; Z11.59 Encounter for screening for other viral diseases
CPT/HCPCS: 00940; 58301; 81025; 85027; 86850; 86900; 86901; 87635; C9803; J7120; U0003

== ENCOUNTER 2021-06-04 16:53 | Outpatient (CLI) | payer OTHER, MEDICAID, SELFPAY ==
[2021-06-07 14:01] LABS: HPV Reflexed? NOT INDICATED
== END 2021-06-04 23:59 | disposition short-term general hospital (02) ==
LOC: LABSPEC 16:59
PROVIDERS: PCP Student in an Organized Health Care Education/Training Program; Referring Provider Obstetrics & Gynecology; Visit Provider Obstetrics & Gynecology
DX: Z12.4 Encounter for screening for malignant neoplasm of cervix (principal)
CPT/HCPCS: 88175; G0145

== ENCOUNTER → 2021-10-02 | Outpatient (CLI) | payer OTHER, MEDICAID, SELFPAY ==
[2021-10-02 14:36] LABS: Hematocrit 36.2 % (37-47); Hemoglobin 12.7 g/dL (12.0-15.0); Mean Corp Hgb Conc 35.1 g/dL (32-36); Mean Corpuscular Hgb 31.5 pg (27.0-32.0); Mean Corpuscular Volume 89.8 fL (81-99); Mean Platelet Vol. 9.7 fl (6.2-12.0); Platelet Count 336 K/mm3 (150-450); RBC Distribution Width CV 12.5 % (11.6-14.6); RBC Distribution Width SD 40.9 fl (35.1-43.9); Red Blood Count 4.03 M/mm3 (4.2-5.4); White Blood Count 4.3 K/mm3 (4.4-11.0)
[2021-10-02 14:56] LABS: Hemoglobin A1c 4.3 % (3.8-5.6)
[2021-10-02 15:01] LABS: ALB/GLOB Ratio 1.3 RATIO (0.9-2.4); AST(SGOT) 13 U/L (15-37); Alanine Aminotransfer ALT/SGPT 16 U/L (13-56); Alkaline Phosphatase 54 U/L (45-117); Anion Gap 5 (5-15); BUN 8 mg/dL (7-18); BUN/Creat Ratio 9.7 RATIO (10-20); Calcium,Total 9.2 mg/dL (8.5-10.1); Chloride 106 mmol/L (98-107); Cholesterol 140 mg/dL (200); Creatinine, Serum 0.83 mg/dL (0.55-1.02); EST Glomerular Filtration Rate 87 mL/min (>60); Est Glom Filt Rate - Afr Amer 105 mL/min (>60); Estradiol 41.8 pg/mL; Globulin 3.1 g/dL (2.2-4.2); Glucose 90 mg/dL (74-106); High Density Lipoprotein 70 mg/dL; Potassium 3.8 mmol/L (3.5-5.1); Prolactin 9.3 ng/mL; Protein, Total 7.1 g/dL (6.4-8.2); Sodium Level 139 mmol/L (136-145); Thyroid Stim Hormone (TSH) 1.56 uIU/mL (0.358-3.74); Triglycerides 45 mg/dL; Very Low Density Lipoprotein 9 mg/dL (5-40)
[2021-10-02 15:06] LABS: Vitamin D,25 Hydroxy 33.7 ng/mL
== END | disposition home or self-care (01) ==
LOC: PAVLAB 13:18
PROVIDERS: PCP Student in an Organized Health Care Education/Training Program; Referring Provider Obstetrics & Gynecology; Visit Provider Obstetrics & Gynecology
DX: F31.9 Bipolar disorder, unspecified (principal); F41.8 Other specified anxiety disorders
CPT/HCPCS: 36415; 80053; 80061; 82306; 82627; 82670; 83036; 84146; 84443; 85027; 82626

== ENCOUNTER → 2021-10-16 | Outpatient (CLI) | payer OTHER, MEDICAID, SELFPAY | END | disposition home or self-care (01) | LOC: LABSPEC 10-17 08:45 | PROVIDERS: PCP Student in an Organized Health Care Education/Training Program; Visit Provider Obstetrics & Gynecology | DX: R30.0 Dysuria (principal) | CPT/HCPCS: 87086; 87088 ==

== ENCOUNTER → 2022-03-06 | Outpatient (CLI) | payer OTHER, MEDICAID, SELFPAY ==
[2022-03-10 00:07] LABS: Chlamydia By Nucleic Acid AMP Negative (Negative)
[2022-03-14 14:27] LABS: Gonococcus By Nucleic Acid AMP Negative (Negative)
== END | disposition home or self-care (01) ==
PROVIDERS: PCP Student in an Organized Health Care Education/Training Program; Visit Provider Obstetrics & Gynecology
DX: Z34.90 Encounter for supervision of normal pregnancy, unspecified, unspecified trimester (principal); N89.9 Noninflammatory disorder of vagina, unspecified
CPT/HCPCS: 87070; 87086; 87088; 87205; 87491; 87591

== ENCOUNTER → 2022-04-07 | Outpatient (CLI) | payer OTHER, MEDICAID, SELFPAY ==
[2022-04-07 15:42] LABS: Absolute Lymphocyte Count 1.12 X10^3/uL (0.83-4.51); Absolute Neutrophil Count 3.2 X10^3/uL (2.0-7.7); Basophil# 0.01 X10^3/uL; Basophil% 0.2 % (0-1); Eosinophil# 0.02 X10^3/uL; Eosinophils% 0.4 % (0-5); Hematocrit 31.9 % (37-47); Hemoglobin 11.8 g/dL (12.0-15.0); Lymphocyte # 1.12 X10^3/ul (0.83-4.51); Lymphocyte % 24.1 % (19-41); Mean Corpuscular Hgb 31.6 pg (27.0-32.0); Mean Corpuscular Volume 85.5 fL (81-99); Mean Platelet Vol. 9.1 fl (6.2-12.0); Monocyte# 0.26 X10^3/uL; Monocyte% 5.6 % (0-10); NRBC Flagged by Analyzer 0 % (0-5); Neutrophil % 69.1 % (47-70); Platelet Count 245 K/mm3 (150-450); RBC Distribution Width CV 12.1 % (11.6-14.6); RBC Distribution Width SD 37.4 fl (35.1-43.9); Red Blood Count 3.73 M/mm3 (4.2-5.4); White Blood Count 4.6 K/mm3 (4.4-11.0)
[2022-04-07 16:26] LABS: NATERA MAILED SPECIMEN
[2022-04-07 16:47] LABS: HIV - WCH Non-Reactive (Nonreactive); Hepatitis B Surface Antigen Non-Reactive (Nonreactive); Hepatitis C Antibody Non-Reactive (Nonreactive); Rubella IgG Reactive (Nonreactive); Syphilis Antibodies Non-reactive
== END | disposition home or self-care (01) ==
LOC: PAVLAB 15:19
PROVIDERS: PCP Student in an Organized Health Care Education/Training Program; Referring Provider Obstetrics & Gynecology; Visit Provider Obstetrics & Gynecology
DX: Z34.81 Encounter for supervision of other normal pregnancy, first trimester (principal)
CPT/HCPCS: 36415; 85025; 86703; 86762; 86780; 86803; 86850; 86900; 86901; 87340

== ENCOUNTER → 2022-08-11 | Outpatient (CLI) | payer OTHER, MEDICAID, SELFPAY ==
[2022-08-11 15:19] LABS: Absolute Lymphocyte Count 1.19 X10^3/uL (0.83-4.51); Absolute Neutrophil Count 6.6 X10^3/uL (2.0-7.7); Basophil# 0.04 X10^3/uL; Basophil% 0.5 % (0-1); Eosinophil# 0.08 X10^3/uL; Eosinophils% 0.9 % (0-5); Hematocrit 37.3 % (37-47); Hemoglobin 12.5 g/dL (12.0-15.0); Lymphocyte # 1.19 X10^3/ul (0.83-4.51); Mean Corp Hgb Conc 33.5 g/dL (32-36); Mean Corpuscular Hgb 31.2 pg (27.0-32.0); Mean Platelet Vol. 10.1 fl (6.2-12.0); Monocyte# 0.53 X10^3/uL; Monocyte% 6.2 % (0-10); NRBC Flagged by Analyzer 0 % (0-5); Neutrophil # 6.55 X10^3/uL (2.7-7.7); Neutrophil % 77.2 % (47-70); Platelet Count 234 K/mm3 (150-450); RBC Distribution Width CV 12.7 % (11.6-14.6); RBC Distribution Width SD 43.6 fl (35.1-43.9); Red Blood Count 4.01 M/mm3 (4.2-5.4); White Blood Count 8.5 K/mm3 (4.4-11.0)
[2022-08-11 15:36] LABS: Glucose Challenge Gest 1H 50g 102 mg/dL (70-140)
[2022-08-11 16:09] LABS: HIV - WCH Non-Reactive (Nonreactive); Syphilis Antibodies Non-reactive
== END | disposition home or self-care (01) ==
LOC: PAVLAB 15:07
PROVIDERS: PCP Student in an Organized Health Care Education/Training Program; Referring Provider Obstetrics & Gynecology; Visit Provider Obstetrics & Gynecology
DX: O09.90 Supervision of high risk pregnancy, unspecified, unspecified trimester (principal)
CPT/HCPCS: 36415; 82950; 85025; 86703; 86780

== ENCOUNTER → 2022-10-09 | Outpatient (CLI) | payer OTHER, MEDICAID, SELFPAY | END | disposition home or self-care (01) | PROVIDERS: PCP Student in an Organized Health Care Education/Training Program; Visit Provider Obstetrics & Gynecology | DX: O09.90 Supervision of high risk pregnancy, unspecified, unspecified trimester (principal); Z3A.00 Weeks of gestation of pregnancy not specified | CPT/HCPCS: 87081 ==

== ENCOUNTER → 2022-10-16 | Outpatient (CLI) | payer OTHER, MEDICAID, SELFPAY | END | disposition home or self-care (01) | PROVIDERS: PCP Student in an Organized Health Care Education/Training Program; Referring Provider Obstetrics & Gynecology; Visit Provider Obstetrics & Gynecology | DX: O26.899 Other specified pregnancy related conditions, unspecified trimester (principal); N89.8 Other specified noninflammatory disorders of vagina; Z3A.00 Weeks of gestation of pregnancy not specified; O99.891 Other specified diseases and conditions complicating pregnancy ==

== ENCOUNTER 2022-10-27 18:35 | Outpatient (CLI) | payer OTHER, MEDICAID, SELFPAY ==
[2022-10-27 19:29] VITALS: BP 124/78; PULSE 93; TEMP 37.2
[2022-10-27 19:35] VITALS: BMI 29.8
[2022-10-27 19:41] LABS: ROM Internal Control Test YES-OK TO RESULT pt. (Internal QC); ROM Patient Test Negative (Negative); Record Kit Lot#, ROM+ K1374
--- NOTE | 2022-10-31 07:22 | OB.TRI.HP_ITS ---
HPI - General HPI Narrative LETTY ANDREA, is a 27 F who presents at 39+1 for contractions. no vb/lof. good fm. Maternal Data Information BACILIO Calculator Estimated Delivery Date Method Current WG Current Estimate 11/02/22 Ultrasound #1 39w 5d Other Estimates 11/04/22 LMP (Uncertain) 39w 3d PFSH PFSH Medical History Abnormal uterine bleeding Anxiety Depression Discoid lupus Placental abnormality Home Medications prenat.vits,jeri,zwg-vdna-xejbg 1 tab PO DAILY 03/06/22 [History Last Taken Unknown] ondansetron HCl 4 mg tablet 4 mg PO Q8H #60 tabs 03/20/22 [Rx Last Taken Unknown] promethazine 12.5 mg tablet 12.5 mg PO TID PRN nausea #60 tabs 04/02/22 [Rx Last Taken Unknown] Allergy/AdvReac Type Severity Reaction Status Date / Time No Known Allergies Allergy Verified 10/27/22 19:37 Family History Grandmother Multiple sclerosis Grandfather Cancer Surgical History H/O foot surgery Social History adopted: No household members: significant other and children housing: house number of children: 1 current occupational status: employed current occupation: [employer] pets and animals: Yes (Not managing the litterbox) pets and animals: cat(s) and dog(s) history of recent travel: No sexually active: Yes Smoking Status: Never smoker alcohol intake: former details: socially prior to substance use type: does not use well-balanced diet: daily or most days caffeine: No eating out: 1-3 times/week during the past year weight has: remained stable what type of physical activity do you participate in: walking frequency: 1-2 times per week duration: 15-30 minutes/day ash/tenriism: Religious seatbelt use: always do you feel safe at home: Yes 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 Date Name GA/Weeks Outcome Route Bth Weight Gen Labor Lgth Anesthesia Del Mattatclaudine Provider FOB 11/09/18 Black 40 live - full term Female epid ural [facility] Dion Delivery Date: 11/09/18 Last Updated by: Lorraine Espinoza Visit Details Expected Delivery Route/Plan Labor Preferences- labor support person: jay labor intervention preferences: nothing pain management options preferred: epidural cut cord/dad catch: yes : yes PP control planned: [] discussed possible routes of delivery and associated risks: [] special requests: [] Plans Covid status: discussed Flu vaccine: discussed Tdap vaccine: given Rhogam: na LARC form signed: declined movement and labor precautions reviewed. Problem list reviewed and updated with the most current plan of care details and appropriate orders placed. Relevant counseling for the gestational age provided. Continue routine care and follow up unless otherwise noted in visit notes/problem list details OB Flowsheet Initial Weight: Not Recorded Date -?-?-?-?-?-?-?-?-?-?-?-?- EGA Weight BP Urine Prot -?-?-?-?-?-?-?-?-?-?-?-?- Glucose FHR FuHt Pres Dilation -?-?-?-?-?-?-?-?-?-?-?-?- Effaced St Visit Note 03/20/22 -?-?-?-?-?-?-?-?-?-?-?-?- 7w 4d 128 lb 129/88 129/88 -?-?-?-?-?-?-?-?-?-?-?-?- 150 -?-?-?-?-?-?-?-?-?-?-?-?- JV- pt here for hyperemesis. ordering zofran non dissolving to get better coverage from insurance. plan for miralax daily going forward. will return in 2 weeks for new ob with her sharon. 04/02/22 -?-?-?-?-?-?-?-?-?-?-?-?- 9w 3d 127 lb 4 oz 112/79 -?-?-?-?-?-?-?-?-?-?-?-?- 178 -?-?-?-?-?-?-?-?-?-?-?-?- JV- single live iup measuring 9 weeks 6 days consistent with LMP. pt wants to do carrier and NIPT. will try phenergan as zofran not covered by insurance. 05/16/22 -?-?-?-?-?-?-?-?-?-?-?-?- 15w 5d 134 lb 4 oz 107/71 Nega tive -?-?-?-?-?-?-?-?-?-?-?-?- Negative 140 -?-?-?-?-?-?-?-?-?-?-?-?- SM- no vb crampi ng feeling much better 06/13/22 -?-?-?-?--?-?-?-?-?-?-?-?- 19w 5d 139 lb 4 oz 105/71 Nega tive -?-?-?-?-?-?-?-?-?-?-?-?- Negative 145 -?-?-?-?-?-?-?-?-?-?-?-?- JV- placenta pre via (rosales of placenta over os) will rpt scan at 28 no intercourse until then. 07/10/22 -?-?-?-?-?-?-?-?-?-?-?-?- 23w 4d 151 lb 2 oz 127/76 Nega tive -?-?-?-?-?-?-?-?-?-?-?-?- Negative 150 -?-?-?-?-?-?-?-?-?-?-?-?- JV- gct ordered. having headaches. remedies discussed. plan 28 week rpt scan. 08/11/22 -?-?-?-?-?-?-?-?-?-?--?-?- 28w 1d 153 lb 6 oz 110/72 -?-?-?-?-?-?-?-?-?-?-?-?- 150 140 28 29 -?-?-?-?-?-?-?-?-?-?-?-?- SM- no vb lof go od fm no regualr ctx 08/29/22 -?-?-?-?-?-?-?-?-?-?-?-?- 30w 5d 161 lb 2 oz 103/68 Nega tive -?-?-?-?-?-?-?-?-?-?-?-?- Negative 145 31 -?-?-?-?-?-?-?-?-?-?-?-?- JV- pt has follo w up ultrasound on to see if previa is resolved. if not I do not recommend travel to [place] at 35 weeks. 09/15/22 -?-?-?-?-?-?-?-?-?-?-?-?- 33w 1d 162 lb 4 oz 117/73 Nega tive -?-?-?-?-?-?-?-?-?-?-?-?- Negative 140 34 -?-?-?-?-?-?-?-?-?-?-?-?- SM- no vb lof go od fm n oregular ctx discussed LTCS if not 2 cm away 10/03/22 -?-?-?-?-?-?-?-?-?-?-?-?- 35w 5d 165 lb 8 oz 112/78 Nega tive -?-?-?-?-?-?-?-?-?-?-?-?- Negative 140 36 -?-?-?-?-?-?-?-?-?-?-?-?- SM- no vb lof go od fm no regular ctx 10/09/22 -?-?-?-?-?-?-?-?-?-?-?-?- 36w 4d 165 lb 8 oz 122/79 -?-?-?-?-?-?-?-?-?-?-?-?- 145 37 Cephalic 0.5 -?-?-?-?-?-?-?-?-?-?-?-?- SM- no vb lof go od fm no regular ctx 10/16/22 -?-?-?-?-?-?-?-?-?-?-?-?- 37w 4d 170 lb 122/85 Negative -?-?-?-?-?-?-?-?-?-?-?-?- Negative 135 37 Cephalic -?-?-?-?-?-?-?-?-?-?-?-?- JV- pt c/o leaki ng some fluid, unsure if membranes ruptured. no loss of fluid on exam. YUNG is 13, vtx presentation. 10/24/22 -?-?-?-?-?-?-?-?-?-?-?-?- 38w 5d 171 lb 6 oz 134/84 -?-?-?-?-?-?-?-?-?-?-?-?- 140 38 Cephalic 1 -?-?-?-?-?-?-?-?-?-?-?-?- 0 -4 JV- pt has diarrhea and chills today. recommend brat diet and rest. no lof, vaginal bleeding, or dec fm. no sick contacts. NST FHR Rate Baby A Variability:: Moderate Accelerations:: 15 x 15 Decelerations:: None NST Reactive:: Yes FHR Category:: Category I Uterine Activity:: irregular Assessment & Plan (1) Supervision of high risk , antepartum: COMMENT: PRR , BACILIO 11/02/22, [facility] PLAN: no cervical change (2) : QUALIFIERS: Weeks of gestation: 36 weeks Qualified Code(s): Z3A.36 - 36 weeks gestation of COMMENT: Neg GBS. placenta no longer low lying, NIPT low risk, Carrier neg. 04/16 Cystic Fibrosis and Galactosemia. FOB to be tested. anatomy reviewed (3) False labor after 37 completed weeks of gestation: PLAN: Plan Patient presents for triage evaluation secondary to contractions, no change in cervical exam. FHT: Moderate variability reactive no decelerations category I tracing [place]: irregular Contractions Assessment and plan: Reactive NST, reassuring maternal and status patient discharged to home to follow-up. See problem list details for additional plan information. Charges/Coding Procedures Urinary/Genital 52xxx-59xxx: 50258-50 non-stress test Interp
--- NOTE | 2022-10-31 07:22 | OB.TRI.NOTE ---
HPI - General HPI Narrative LETTY ANDREA, is a 27 F who presents at 39+1 for contractions. no vb/lof. good fm. Maternal Data Information BACILIO Calculator Estimated Delivery Date Method Current WG Current Estimate 11/02/22 Ultrasound #1 39w 5d Other Estimates 11/04/22 LMP (Uncertain) 39w 3d PFSH PFSH Medical History Abnormal uterine bleeding Anxiety Depression Discoid lupus Placental abnormality Home Medications prenat.vits,jeri,mul-enyk-qcqyx 1 tab PO DAILY 03/06/22 [History Last Taken Unknown] ondansetron HCl 4 mg tablet 4 mg PO Q8H #60 tabs 03/20/22 [Rx Last Taken Unknown] promethazine 12.5 mg tablet 12.5 mg PO TID PRN nausea #60 tabs 04/02/22 [Rx Last Taken Unknown] Allergy/AdvReac Type Severity Reaction Status Date / Time No Known Allergies Allergy Verified 10/27/22 19:37 Family History Grandmother Multiple sclerosis Grandfather Cancer Surgical History H/O foot surgery Social History adopted: No household members: significant other and children housing: house number of children: 1 current occupational status: employed current occupation: [employer] pets and animals: Yes (Not managing the litterbox) pets and animals: cat(s) and dog(s) history of recent travel: No sexually active: Yes Smoking Status: Never smoker alcohol intake: former details: socially prior to substance use type: does not use well-balanced diet: daily or most days caffeine: No eating out: 1-3 times/week during the past year weight has: remained stable what type of physical activity do you participate in: walking frequency: 1-2 times per week duration: 15-30 minutes/day ash/pentecostal: [employer] seatbelt use: always do you feel safe at home: Yes 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 Date Name GA/Weeks Outcome Route Bth Weight Gen Labor Lgth Anesthesia Jose Gutierrezatn Provider FOB 11/09/18 Black 40 live - full term Female epidural [facility] Dion Delivery Date: 11/09/18 Last Updated by: Lorraine Espinoza Visit Details Expected Delivery Route/Plan Labor Preferences- labor support person: jay labor intervention preferences: nothing pain management options preferred: epidural cut cord/dad catch: yes : yes PP control planned: [] discussed possible routes of delivery and associated risks: [] special requests: [] Plans Covid status: discussed Flu vaccine: discussed Tdap vaccine: given Rhogam: na LARC form signed: declined movement and labor precautions reviewed. Problem list reviewed and updated with the most current plan of care details and appropriate orders placed. Relevant counseling for the gestational age provided. Continue routine care and follow up unless otherwise noted in visit notes/problem list details OB Flowsheet Initial Weight: Not Recorded Date <del>?</del> EGA Weight BP Urine Prot <del>?</del> Glucose FHR FuHt Pres Dilation <del>?</del> Effaced St Visit Note 03/20/22 <del>?</del> 7w 4d 128 lb 129/88 129/88 <del>?</del> 150 <del>?</del> JV- pt here for hyperemesis. ordering zofran non dissolving to get better coverage from insurance. plan for miralax daily going forward. will return in 2 weeks for new ob with her sharon. 04/02/22 <del>?</del> 9w 3d 127 lb 4 oz 112/79 <del>?</del> 178 <del>?</del> JV- single live iup measuring 9 weeks 6 days consistent with LMP. pt wants to do carrier and NIPT. will try phenergan as zofran not covered by insurance. 05/16/22 <del>?</del> 15w 5d 134 lb 4 oz 107/71 Negative <del>?</del> Negative 140 <del>?</del> SM- no vb cramping feeling much better 06/13/22 <del>?</del> 19w 5d 139 lb 4 oz 105/71 Negative <del>?</del> Negative 145 <del>?</del> JV- placenta previa (rosales of placenta over os) will rpt scan at 28 no intercourse until then. 07/10/22 <del>?</del> 23w 4d 151 lb 2 oz 127/76 Negative <del>?</del> Negative 150 <del>?</del> JV- gct ordered. having headaches. remedies discussed. plan 28 week rpt scan. 08/11/22 <del>?</del> 28w 1d 153 lb 6 oz 110/72 <del>?</del> 150 140 28 29 <del>?</del> SM- no vb lof good fm no regualr ctx 08/29/22 <del>?</del> 30w 5d 161 lb 2 oz 103/68 Negative <del>?</del> Negative 145 31 <del>?</del> JV- pt has follow up ultrasound on to see if previa is resolved. if not I do not recommend travel to [place] at 35 weeks. 09/15/22 <del>?</del> 33w 1d 162 lb 4 oz 117/73 Negative <del>?</del> Negative 140 34 <del>?</del> SM- no vb lof good fm n oregular ctx discussed LTCS if not 2 cm away 10/03/22 <del>?</del> 35w 5d 165 lb 8 oz 112/78 Negative <del>?</del> Negative 140 36 <del>?</del> SM- no vb lof good fm no regular ctx 10/09/22 <del>?</del> 36w 4d 165 lb 8 oz 122/79 <del>?</del> 145 37 Cephalic 0.5 <del>?</del> SM- no vb lof good fm no regular ctx 10/16/22 <del>?</del> 37w 4d 170 lb 122/85 Negative <del>?</del> Negative 135 37 Cephalic <del>?</del> JV- pt c/o leaking some fluid, unsure if membranes ruptured. no loss of fluid on exam. YUNG is 13, vtx presentation. 10/24/22 <del>?</del> 38w 5d 171 lb 6 oz 134/84 <del>?</del> 140 38 Cephalic 1 <del>?</del> 0 -4 JV- pt has diarrhea and chills today. recommend brat diet and rest. no lof, vaginal bleeding, or dec fm. no sick contacts. NST FHR Rate Baby A Variability:: Moderate Accelerations:: 15 x 15 Decelerations:: None NST Reactive:: Yes FHR Category:: Category I Uterine Activity:: irregular Assessment & Plan (1) Supervision of high risk , antepartum: COMMENT: PRR , BACILIO 11/02/22, [facility] PLAN: no cervical change (2) : QUALIFIERS: Weeks of gestation: 36 weeks Qualified Code(s): Z3A.36 - 36 weeks gestation of COMMENT: Neg GBS. placenta no longer low lying, NIPT low risk, Carrier neg. 04/16 Cystic Fibrosis and Galactosemia. FOB to be tested. anatomy reviewed (3) False labor after 37 completed weeks of gestation: PLAN: Plan Patient presents for triage evaluation secondary to contractions, no change in cervical exam. FHT: Moderate variability reactive no decelerations category I tracing [place]: irregular Contractions Assessment and plan: Reactive NST, reassuring maternal and status patient discharged to home to follow-up. See problem list details for additional plan information. Charges/Coding Procedures Urinary/Genital 52xxx-59xxx: 17852-50 non-stress test Interp
== END 2022-10-27 21:30 | disposition home or self-care (01) ==
LOC: WPOUT 18:45 → WP 18:46
PROVIDERS: PCP Student in an Organized Health Care Education/Training Program; Referring Provider Registered Nurse; Visit Provider Registered Nurse
DX: O47.1 False labor at or after 37 completed weeks of gestation (principal); Z3A.39 39 weeks gestation of pregnancy
CPT/HCPCS: 59025; 59050; 84112

== ENCOUNTER 2022-11-06 16:05 | Inpatient (IN) | payer OTHER, MEDICAID, SELFPAY ==
[2022-11-06] VITALS (26 sets, daily range): BP systolic 106–144; BP diastolic 58–98; PULSE 78–102; TEMP 36.7–37.3; O2SAT 93–100; BMI 30.2
[2022-11-06] MEDS: Lactated Ringers 1,000 ML 50 ML IV (17:00)
[2022-11-06 17:19] LABS: Absolute Lymphocyte Count 1.15 X10^3/uL (0.83-4.51); Absolute Neutrophil Count 4.8 X10^3/uL (2.0-7.7); Basophil# 0.03 X10^3/uL; Basophil% 0.5 % (0-1); Eosinophil# 0.04 X10^3/uL; Eosinophils% 0.6 % (0-5); Hematocrit 35.3 % (37-47); Hemoglobin 11.9 g/dL (12.0-15.0); Lymphocyte # 1.15 X10^3/ul (0.83-4.51); Lymphocyte % 17.5 % (19-41); Mean Corp Hgb Conc 33.7 g/dL (32-36); Mean Corpuscular Hgb 31.2 pg (27.0-32.0); Mean Corpuscular Volume 92.4 fL (81-99); Mean Platelet Vol. 11.3 fl (6.2-12.0); Monocyte# 0.48 X10^3/uL; Monocyte% 7.3 % (0-10); NRBC Flagged by Analyzer 0 % (0-5); Neutrophil # 4.83 X10^3/uL (2.7-7.7); Neutrophil % 73.2 % (47-70); Platelet Count 158 K/mm3 (150-450); RBC Distribution Width CV 13.2 % (11.6-14.6); Red Blood Count 3.82 M/mm3 (4.2-5.4); White Blood Count 6.6 K/mm3 (4.4-11.0)
[2022-11-06] MEDS: Oxytocin 15 Units/NS 250ml 15 UNITS/250 ML IV.SOLN 2 UNITS IV (17:23)
--- NOTE | 2022-11-06 17:34 | HP.PCM.OB_ITS ---
HPI - General General Date of Admission: 11/06/22 Date of Service: 11/06/22 HPI Narrative LETTY ANDREA, is a 27 F 40.4 weeks who presents to L&D IAL. Maternal Data Information BACILIO Calculator Estimated Delivery Date Method Current WG Current Estimate 11/02/22 Ultrasound #1 40w 4d Other Estimates 11/04/22 LMP (Uncertain) 40w 2d Final BACILIO: 11/02/22 Final BACILIO Source: US >20 weeks Gestational age: 40.4 weeks PFSH PFSH Medical History Abnormal uterine bleeding Anxiety Depression Discoid lupus Placental abnormality Home Medications prenat.vits,jeri,[id number] 1 tab PO DAILY 03/06/22 [History Last Taken 11/06/22] ondansetron HCl 4 mg tablet 4 mg PO Q8H Nause #60 tabs 03/20/22 [Rx Last Taken Unknown] promethazine 12.5 mg tablet 12.5 mg PO TID PRN nausea #60 tabs 04/02/22 [Rx Last Taken Unknown] magnesium oxide 400 mg PO DAILY Constipation 11/06/22 [History Last Taken 11/05/22] Allergy/AdvReac Type Severity Reaction Status Date / Time No Known Allergies Allergy Verified 11/06/22 15:15 Family History Grandmother Multiple sclerosis Grandfather Cancer Surgical History H/O foot surgery Social History adopted: No household members: significant other and children housing: house number of children: 1 current occupational status: employed current occupation: [employer] pets and animals: Yes (Not managing the litterbox) pets and animals: cat(s) and dog(s) history of recent travel: No sexually active: Yes Smoking Status: Never smoker alcohol intake: former details: socially prior to substance use type: does not use well-balanced diet: daily or most days caffeine: No eating out: 1-3 times/week during the past year weight has: remained stable what type of physical activity do you participate in: walking frequency: 1-2 times per week duration: 15-30 minutes/day ash/temple: [employer]ian seatbelt use: always do you feel safe at home: Yes additional social history: 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 Date Name GA/Weeks Outcome Route Bth Weight Infant Gen Labor Lgth Anesthesia Del Locatn Provider FOB 11/09/18 Black 40 live - full term Female epid ural [facility] Marcanthony Delivery Date: 11/09/18 Last Updated by: Lorraine Espinoza Visit Details Expected Delivery Route/Plan Labor Preferences- labor support person: jay labor intervention preferences: nothing pain management options preferred: epidural cut cord/dad catch: yes : yes PP control planned: [] discussed possible routes of delivery and associated risks: [] special requests: [] Plans Covid status: discussed Flu vaccine: discussed Tdap vaccine: given Rhogam: na LARC form signed: declined movement and labor precautions reviewed. Problem list reviewed and updated with the most current plan of care details and appropriate orders placed. Relevant counseling for the gestational age provided. Continue routine care and follow up unless otherwise noted in visit notes/problem list details OB Flowsheet Initial Weight: Not Recorded Date -?-?-?-?-?-?-?-?-?-?-?-?- EGA Weight BP Urine Prot -?-?-?-?-?-?-?-?-?-?-?-?- Glucose FHR FuHt Pres Dilation -?-?-?-?-?-?-?-?-?-?-?-?- Effaced St Visit Note 03/20/22 -?-?-?-?-?-?-?-?-?-?-?-?- 7w 4d 128 lb 129/88 129/88 -?-?-?-?-?-?-?-?-?-?-?-?- 150 -?-?-?-?-?-?-?-?-?-?-?-?- JV- pt here for hyperemesis. ordering zofran non dissolving to get better coverage from insurance. plan for miralax daily going forward. will return in 2 weeks for new ob with her firahe. 04/02/22 -?-?-?-?-?-?-?-?-?-?-?-?- 9w 3d 127 lb 4 oz 112/79 -?-?-?-?-?-?-?-?-?-?-?-?- 178 -?-?-?-?-?-?-?-?-?-?-?-?- JV- single live iup measuring 9 weeks 6 days consistent with LMP. pt wants to do carrier and NIPT. will try phenergan as zofran not covered by insurance. 05/16/22 -?-?-?-?-?-?-?-?-?-?-?-?- 15w 5d 134 lb 4 oz 107/71 Nega tive -?-?-?-?-?--?-?-?-?-?-?-?- Negative 140 -?-?-?-?-?-?-?-?-?-?-?-?- SM- no vb crampi ng feeling much better 06/13/22 -?-?-?-?-?-?-?-?-?-?-?-?- 19w 5d 139 lb 4 oz 105/71 Nega tive -?-?-?-?-?-?-?-?-?-?-?-?- Negative 145 -?-?-?-?-?-?-?-?-?-?-?-?- JV- placenta pre via (rosales of placenta over os) will rpt scan at 28 no intercourse until then. 07/10/22 -?-?-?-?-?-?-?-?-?-?-?-?- 23w 4d 151 lb 2 oz 127/76 Nega tive -?-?-?-?-?-?-?-?-?-?-?-?- Negative 150 -?-?-?-?-?-?-?-?-?-?-?-?- JV- gct ordered. having headaches. remedies discussed. plan 28 week rpt scan. 08/11/22 -?-?-?-?-?-?-?-?-?-?-?-?- 28w 1d 153 lb 6 oz 110/72 -?-?-?-?-?-?-?-?-?-?-?-?- 150 140 28 29 -?-?-?-?-?-?-?-?-?-?-?-?- SM- no vb lof go od fm no regualr ctx 08/29/22 -?-?-?-?--?-?-?-?-?-?-?-?- 30w 5d 161 lb 2 oz 103/68 Nega tive -?-?-?-?-?-?-?-?-?-?-?-?- Negative 145 31 -?-?-?-?-?-?-?-?-?-?-?-?- JV- pt has follo w up ultrasound on to see if previa is resolved. if not I do not recommend travel to [place] at 35 weeks. 09/15/22 -?-?-?-?-?-?-?-?-?-?-?-?- 33w 1d 162 lb 4 oz 117/73 Nega tive -?-?-?-?-?-?-?-?-?-?-?-?- Negative 140 34 -?-?-?-?-?-?-?-?-?-?-?-?- SM- no vb lof go od fm n oregular ctx discussed LTCS if not 2 cm away 10/03/22 -?-?-?-?-?-?-?-?-?-?-?-?- 35w 5d 165 lb 8 oz 112/78 Nega tive -?-?-?-?-?-?-?-?-?-?-?-?- Negative 140 36 -?-?-?-?-?-?-?-?-?-?-?-?- SM- no vb lof go od fm no regular ctx 10/09/22 -?-?-?-?-?-?-?-?-?-?-?-?- 36w 4d 165 lb 8 oz 122/79 -?-?-?-?-?-?-?-?-?-?-?-?- 145 37 Cephalic 0.5 -?-?-?-?-?-?-?-?-?-?-?-?- SM- no vb lof go od fm no regular ctx 10/16/22 -?-?-?-?-?-?-?-?-?-?-?-?- 37w 4d 170 lb 122/85 Negative -?-?-?-?-?-?-?-?-?--?-?-?- Negative 135 37 Cephalic -?-?-?-?-?-?-?-?-?-?-?-?- JV- pt c/o leaki ng some fluid, unsure if membranes ruptured. no loss of fluid on exam. YUNG is 13, vtx presentation. 10/24/22 -?-?-?-?-?-?-?-?-?-?-?-?- 38w 5d 171 lb 6 oz 134/84 -?-?-?-?-?-?-?-?-?-?-?-?- 140 38 Cephalic 1 -?-?-?-?-?-?-?-?--?-?-?-?- 0 -4 JV- pt has diarrhea and chills today. recommend brat diet and rest. no lof, vaginal bleeding, or dec fm. no sick contacts. 10/31/22 -?-?-?-?-?-?-?-?-?-?-?-?- 39w 5d 172 lb 2 oz 118/79 Nega tive -?-?-?-?-?-?-?-?-?-?-?-?- Negative 140 39 Cephalic 2 -?-?-?-?-?-?-?-?-?-?-?-?- 60 -3 LC- no vb/ ctx/lof. good fm. IOL set up per on 11/08/2022 11/06/22 -?-?-?-?-?-?-?-?-?-?-?-?- 40w 4d 175 lb 6 oz 108/68 Nega tive -?-?-?-?-?-?-?-?-?-?-?-?- Negative 140 41 Cephalic 4 -?-?-?-?-?-?-?-?-?-?-?-?- 80 -2 KW-+FM. no vb/lof. some contractions. membrane sweep today. to WP. NST FHR Rate Baby B Baseline: 140 Variability:: Moderate Accelerations:: 15 x 15 Decelerations:: None NST Reactive:: Yes FHR Category:: Category I Uterine Activity:: 4-5 minutes ROS Constitutional Constitutional: Denies change in weight, fatigue, fever(s), headache(s), poor appetite or weakness Eyes Eyes: Denies blurry vision, change in vision, floaters, seeing flashes or spots in vision ENT HEENT: Denies dizziness, headache(s), loss taste/smell or sore throat Cardiovascular Cardiovascular: Denies chest pain, dizziness, dyspnea, irregular heart rhythm, lightheadedness, palpitations or rapid heart rate Respiratory/Chest Respiratory/Chest: Denies change in mental status, chest tightness, cough, dyspnea or breast pain Gastrointestinal Gastrointestinal: Denies anorexia, chewing difficulty, constipation, diarrhea or weight changes Genitourinary Genitourinary: Denies difficulty urinating, dysuria, flank pain, genital pain, urinary frequency or urinary urgency Musculoskeletal Musculoskeletal: Denies back pain, difficulty walking, extremity pain, joint pain, muscle cramps or muscle weakness Integumentary Integumentary: Denies lesions or unusual bruising Neurologic Neurologic: Denies abnormal movements, abnormal speech, dizziness, numbness, seizure-like activity, syncope or weakness Psychiatric Psychiatric: Denies behavioral changes, change in appetite, confusion, depression, homicidal ideation, suicidal ideation or suicidal thoughts Endocrine Endocrinology: Denies excessive sweating, polydipsia or polyuria Hematologic/Lymphatic Hematologic/Lymphatic: Denies anemia Allergic/Immunologic Allergic/Immunologic: Denies itchy eyes, lip swelling, throat swelling, tongue swelling or wheezing Vital Signs Vital Signs Vital Signs: 11/06/22 17:05 11/06/22 17:05 11/06/22 17:04 Temperature Pulse Rate 98 Blood Pressure 117/85 H BP Systolic 117 BP Diastolic 85 Pulse Ox 96 11/06/22 17:04 Temperature 98.4 F Pulse Rate Blood Pressure BP Systolic BP Diastolic Pulse Ox Weight Weight: 176 lb Body Mass Index (BMI) 30.2 Physical Exam Const alert, oriented x3 and no apparent distress General Appearance: cooperative Orientation / Consciousness: awake HEENT normocephalic Neck full ROM Lymph Lymphatic: no lymphadenopathy noted Chest inspection of chest normal Resp normal respiratory effort and normal air movement Effort and Inspection: able to speak in complete sentences and symmetric chest movement GI soft to palpation and non-tender Inspection: gravid Palpation: soft; Negative for tender external exam normal Back/Spine normal to inspection Extremity normal to inspection and full ROM Skin no rashes or lesions noted Psych mental status grossly normal Appearance: grossly normal Speech: normal speech Labs Labs Labs: Blood Type O POSITIVE Antibody Screen NEGATIVE Hct 35.3 % (37-47) L Hgb 11.9 g/dL (12.0-15.0) L Pap Smear Negative Obstetrics US Syphilis Total Ab Non-reactive Rubella IgG Antibody Reactive (Nonreactive) Hep Bs Antigen Non-Reactive (Nonreactive) Chlamydia DNA (NOMI) Negative (Negative) Neisseria gonorrhoeae DNA (NOMI) Negative (Negative) HIV 1&2 Antibody Non-Reactive (Nonreactive) Glucose 1 Hr 50 gm 102 mg/dL (70-140) Rhogam given: No Miscellaneous Test Assessment & Plan (1) Supervision of high risk , antepartum: COMMENT: PRR , BACILIO 11/02/22, [place] Del Carmen [place] (2) : QUALIFIERS: Weeks of gestation: 40 weeks Qualified Code(s): Z3A.40 - 40 weeks gestation of COMMENT: Neg GBS. placenta no longer low lying, NIPT low risk, Carrier neg. 04/16 Cystic Fibrosis and Galactosemia. FOB to be tested. anatomy reviewed (3) Active labor at term: PLAN: Patient presents IAL, plan expectant management for , pitocin/AROM PRN if needed. Pain management: plans epidural. GBS negative. Management of any complications: none I have reviewed the [facility] and made any clinically relevant updates. Plan of care reviewed with Dr Ashley. Agrees with plan of care Charges/Coding Multi Select Codes Urinary/Genital Urinary/Genital CPT Codes: No Charge
[2022-11-06 17:53] LABS: Syphilis Antibodies Non-reactive
[2022-11-06] MEDS: LACTATED RINGERS 500 ML 999 ML IV (18:48)
[2022-11-06] MEDS: fentaNYL-bupivacaine (epidural) 100 ML BAG EPIDURAL (19:49)
[2022-11-06] MEDS: Lactated Ringers 1,000 ML 200 ML IV (23:52)
[2022-11-07] VITALS (36 sets, daily range): BP systolic 101–228; BP diastolic 53–155; PULSE 74–114; RESP 14–15; TEMP 25.2–38.9; O2SAT 97–100
[2022-11-07] MEDS: LACTATED RINGERS 500 ML 999 ML IV (00:13)
[2022-11-07] MEDS: fentaNYL-bupivacaine (epidural) 100 ML BAG EPIDURAL (00:26)
--- NOTE | 2022-11-07 01:03 | PN_ITS ---
Progress Note Comfortable with epidural current tracing: FHT: 130 Moderate variability reactive no decelerations category I tracing [place]: 1-2 minutes Contractions SVE 5.5/80/-1 pitocin 4.0 mu AROM at 2036 clear A/P: continue pitocin changes continue to titrate pitocin per protocol anticipate Assessment & Plan Assessment/Plan (1) Supervision of high risk , antepartum: (2) : QUALIFIERS: Weeks of gestation: 40 weeks Qualified Code(s): Z3A.40 - 40 weeks gestation of (3) Depression with anxiety: (4) Active labor at term: Multi Select Codes Urinary/Genital Urinary/Genital CPT Codes: No Charge
[2022-11-07] MEDS: Ondansetron 4 MG/2 ML Vial IV (03:09)
[2022-11-07] MEDS: Mag Hydrox/Al Hydrox/Simeth 30 ML UDC PO (03:18)
[2022-11-07] MEDS: Acetaminophen 500 MG Tablet PO (03:57)
[2022-11-07] MEDS: Methylergonovine 0.2 MG/ML Ampul IM (04:13)
[2022-11-07] MEDS: Carboprost Tromethamine 250 MCG/ML Ampul IM (04:14)
[2022-11-07] MEDS: miSOPROStol 200 MCG Tablet 1000 MCG RC (04:15)
[2022-11-07] MEDS: 0.9% Saline Lock 10 ML Syringe IV ×6 (04:19→07:50)
[2022-11-07] MEDS: Oxytocin 15 Units/NS 250ml 15 UNITS/250 ML IV.SOLN 83 UNITS IV (04:31)
[2022-11-07] MEDS: proCHLORPERazine 10 MG/2 ML Vial IV (04:34)
[2022-11-07 04:36] LABS: Absolute Lymphocyte Count 1.18 X10^3/uL (0.83-4.51); Absolute Neutrophil Count 10.1 X10^3/uL (2.0-7.7); Basophil# 0.03 X10^3/uL; Basophil% 0.2 % (0-1); Eosinophil# 0.03 X10^3/uL; Eosinophils% 0.2 % (0-5); Hematocrit 33.3 % (37-47); Hemoglobin 11.2 g/dL (12.0-15.0); Lymphocyte # 1.18 X10^3/ul (0.83-4.51); Lymphocyte % 9.4 % (19-41); Mean Corp Hgb Conc 33.6 g/dL (32-36); Mean Corpuscular Volume 92.2 fL (81-99); Mean Platelet Vol. 11.2 fl (6.2-12.0); Monocyte# 1.13 X10^3/uL; NRBC Flagged by Analyzer 0 % (0-5); Neutrophil % 80.6 % (47-70); Platelet Count 158 K/mm3 (150-450); RBC Distribution Width SD 43.8 fl (35.1-43.9); Red Blood Count 3.61 M/mm3 (4.2-5.4); White Blood Count 12.6 K/mm3 (4.4-11.0)
[2022-11-07 04:45] LABS: Prothrombin Time (Protime)PT. 12.7 SECONDS (11.7-14.9)
[2022-11-07 04:46] LABS: Partial Thromboplast Time 27.9 Seconds (24.1-36.2)
--- NOTE | 2022-11-07 04:49 | EX.PCM.OBRPT ---
Maternal Data Information BACILIO Calculator Estimated Delivery Date Method Current WG Current Estimate 11/02/22 Ultrasound #1 40w 5d Other Estimates 11/04/22 LMP (Uncertain) 40w 3d Vaginal Delivery Findings Description of Procedure: Physician called after delivery of baby and placenta due to hemorrhage. By the time of my arrival Methergine Hemabate Pitocin and Cytotec had been given and massage had already been performed. The special delivery clerk had identified a cervical laceration had already clamped it with a ring forceps and was applying pressure. Bleeding was minimal amount upon my assessment however persisted and therefore a stitch of 3-0 Vicryl was placed into the cervix to obtain hemostasis. Floseal was also placed over the raw areas of the cervix and pressure applied. TXA was being given through the IV throughout this. Again the area was checked and no additional bleeding outside of normal uterine bleeding noticed. cbc results reveiwed.
--- NOTE | 2022-11-07 04:53 | EX.PCM.OBRPT ---
Assessment & Plan (1) Vaginal delivery: COMMENT: KW/SM, 40.5, PPH, SD, Girl-Dmitri (2) Supervision of high risk , antepartum: COMMENT: PRR , BACILIO 11/02/22, Maria [place] Carm[place] (3) : QUALIFIERS: Weeks of gestation: 40 weeks Qualified Code(s): Z3A.40 - 40 weeks gestation of COMMENT: Neg GBS. placenta no longer low lying, NIPT low risk, Carrier neg. 04/16 Cystic Fibrosis and Galactosemia. FOB to be tested. anatomy reviewed (4) Depression with anxiety: COMMENT: no meds Maternal Data Information BACILIO Calculator Estimated Delivery Date Method Current WG Current Estimate 11/02/22 Ultrasound #1 40w 5d Other Estimates 11/04/22 LMP (Uncertain) 40w 3d Final BACILIO: 11/02/22 Final BACILIO Source: US >20 weeks Gestational age: 40.5 weeks Vaginal Delivery Maternal Presentation Maternal Presentation: Active Labor Maternal Presentation: Patient began pushing and delivered the head in the ELIDA presentation. The head was delivered atraumatically and a loose nuchal cord ?1 was identified and easily reduced over the infant's head. The anterior and posterior shoulders were then noted to be tightly fitting. Mc Vázquez and Suprapubic pressure applied. Attempted to reach in for posterior arm, upon doing so it was noted that the anterior shoulder was then under the pubic bone. The rest of the was then delivered with maternal pushing efforts and the infant was placed on the maternal abdomen. Total infant delivery lasted 45 seconds. The cord was clamped and cut to allow assessment by awaiting nursery team. Cord blood and gases were obtained and gentle traction was applied to the cord and the placenta delivered spontaneously immediately following it was noted to be intact with three-vessel cord. After delivery of the placenta, it was noted that there was a large amount of vaginal bleeding from unknown source but suspected from cervix. Cervix was clamped with ring forceps and Dr Ashley called for assistance. PPH meds initiated. See physician note for rest of documentation. EBL was 500cc. Apgars 7/9. 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: Tatianna Hidalgo Type of Anesthesia: Epidural Estimated Blood Loss: 500 Time of Delivery: 04:05 Findings Presentation: Vertex Amniotic Membrane Rupture Type: Artificial Time of Membrane Rupture: 2036 Amniotic Fluid Description: Clear Placental Delivery Description: Spontaneous Placenta Disposition: [facility] Cord Vessel Description: 3 Vessels Cord Entanglement: Around neck x 1, loose Nuchal Cord Compression: Without compression Cord Gases: ABG and VBG A Gender: Female (1 minute): 7 (5 minute): 9 Delayed Cord Clamping: Yes Post Vaginal Delivery Medications Given After Delivery: IV Pitocin, IM Methergin, IM Hemabate and - (TXA and Cytotec) Episiotomy Description: None Laceration: Cervical Extension/lac Procedures Urinary/Genital 52xxx-59xxx: [id number] Vaginal Delivery global pkg Multi Select Codes Urinary/Genital Urinary/Genital CPT Codes: 94839 Vaginal Delivery global pkg
--- NOTE | 2022-11-07 07:20 | NURSING ---
bedside report given to Ana Fraser RN who is assuming care of pt at this time
--- NOTE | 2022-11-07 07:53 | NURSING ---
all late entry charting completed due to pt care
[2022-11-07] MEDS: Prenatal Vits Tablet 1 TABLET PO (10:30)
--- NOTE | 2022-11-07 16:20 | CASEMGMT ---
Social Work Assessment Labor and Delivery Unit Patient Address: [address] [facility], [address] Phone number: [phone] Date of Referral: 11/07/22 Time of Referral:? 0546 Referred By: Tatianna Hidalgo Date of Intervention: ??11/07/22 Time of Intervention:? 1530 Reason for Referral:? Mental health Sw completed chart review, acknowledges social work consult submitted. Sw presented to bedside, introduced self to MOB and explained sw role. Sw completed psychosocial assessment. Father of baby (MABEL) asleep on couch. History obtained from: medical records and mother of baby (HANSA Cobb)??? Household composition: Currently residing in the home is ENRIQUETA, MABEL and ENRIQUETA's older daughter, Sofia (: 11/09/2018) Patient's parent/guardian status: ENRIQUETA reports that parents have been together for two years. They met through mutual friends. MABEL is involved and helps care for MOB other daughter as well. ENRIQUETA denies current abuse/ domestic violence. ENRIQUETA states that her former relationship with Sofia's father was not healthy. ? Medical History: This is second and delivery for ENRIQUETA. ENRIQUETA received routine care with [facility]. ENRIQUETA delivered baby, Dmitri Reagan, who weighed 8lb and 11oz via vaginal delivery. Baby's apgars were 7 and 9. Educational Status:?ENRIQUETA states that she has obtained her Bachelors of Science degree. MABEL attended some college but did not obtain degree. 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 Infant Supplies: ENRIQUETA reports that they have everything they need for baby at home including: safe sleep space, car seat, clothes, diapers and wipes. ? Childcare/Caregiver(s):?ENRIQUETA states that when both parents are working her mother will be able to assist with childcare. Transportation:?? No transportation barriers at this time, both parents have reliable transportation. Programs/Agencies Involved: ???None at this time Children Services/Legal Issues:??? No former involvement, no needs or issues warranting referral at this time. Behavioral Health Issues: ??Mental Health History:??ENRIQUETA has been diagnosed with anxiety and depression. ENRIQUETA is prescribed zoloft and citalopram. MOB reports that she is also connected to counseling services at [facility]. MOB states that the situation she was in after her first daughter was born is totally different than where she is at now. MOB states that FOB will be a big support for her, and she does not feel overwhelmed or anxious at this time. MOB completed Mather Depression Scale, her score was a 4. Sw provided support and education to which MOB was receptive to.?MOB denies ever having thoughts of hurting herself, current and historical. Substance Use History:?MOB denies? Family History:??MOB states that neither family has history of substance use issues. ??? Drug Screens: No urine screens in observed in chart review. Family/Social Stressors:? MOB reporst that the only stress she/ family deal with on a regular basis is the father to her older daughter. MOB states that Black's paternal grandma is usually the one who is with Black whenever it is his time to be with her. MOB states that paternal grandma does drop off and picking machine operator and she has minimal contact with Black's dad. Support Systems: MOB reports that they have a lot of family support from both sides of the family. Depression/Shaken Baby/Safe Sleeping: Sw provided education and literature for MOB to review on depression and baby blues. Sw educated MOB to never shake a baby and ABCs of safe sleep. Sw encouraged MOB to also teach ABCs of safe sleep to her older daughter, Sofia. MOB expressed understanding on both of these topics. ? ASSESSMENT:? MOB was talkative and engaged in assessment. MOB connected to mental health supports and family supports. MOB would benefit from continuing her linkage to mental health community resources during this period. MOB receptive to sw involvement and support. PLAN:? MOB and baby to be discharged when medically ready. ?No other services requested or indicated. Renata Reid, SHIRT PRESSER, MANAGER GLOBAL COMMUNICATIONS
--- NOTE | 2022-11-07 16:49 | CASEMGMT ---
Social work Labor and Delivery Unit Sw received consult to meet with mother of baby (MOBElisa Cobb) due to mental health Sw completed chart review. Sw met with MOB at bedside. Sw completed psychosocial assessment. Further documentation to be entered at later date. No further concerns from sw perspective, it is ok for baby and MOB to be discharged when medically ready. Renata Reid, PLANT ATTENDANT OR ASSISTANT OPERATOR, LEATHER TOGGLER
[2022-11-07] MEDS: Acetaminophen 500 MG Tablet 1000 MG PO (20:36)
[2022-11-08 03:56] VITALS: BP 101/62; PULSE 71; RESP 14; TEMP 36.3
[2022-11-08 06:08] LABS: Hematocrit 26.9 % (37-47); Mean Corp Hgb Conc 33.5 g/dL (32-36); Mean Corpuscular Volume 92.8 fL (81-99); Mean Platelet Vol. 10.7 fl (6.2-12.0); Platelet Count 130 K/mm3 (150-450); RBC Distribution Width CV 13.1 % (11.6-14.6); RBC Distribution Width SD 44.6 fl (35.1-43.9); White Blood Count 9.4 K/mm3 (4.4-11.0)
--- NOTE | 2022-11-08 06:46 | PCM.PN.OB ---
Subjective Subjective Patient doing well without complaints. Tolerating PO. Ambulating and voiding without difficulty. feeding well. Denies chest pain, shortness of breath, calf pain/swelling, fevers, chills, lightheadedness. Objective Data Objective Data Vital Signs: Vital Signs Temp Pulse Resp BP Pulse Ox O2 Del Method 97.3 F L 71 14 101/62 99 Room Air 11/08/22 03:56 11/08/22 03:56 11/08/22 03:56 11/08/22 03:56 11/07/22 12:40 11/08/22 03:56 Oxygen Delivery Method Room Air Weight: 176 lb Body Mass Index (BMI) 30.2 Intake & Output: Intake and Output for Last 24 Hours 11/06/22 11/07/22 11/08/22 23:59 23:59 23:59 Intake Total 1512.70 / 1512.70 2254.05 / 2254.05 Output Total 790 / 790 3175 / 3175 Balance 722.70 / 722.70 -920.95 / -920.95 Lab / Micro Data 11/08/22 06:00 Labs: Laboratory Results - last 24 hr 11/08/22 06:00: WBC 9.4, RBC 2.90 L, Hgb 9.0 L, Hct 26.9 L, MCV 92.8, MCH 31.0, MCHC 33.5, RDW Std Deviation 44.6 H, RDW Coeff of Sg 13.1, Plt Count 130 L, MPV 10.7 ROS Constitutional Constitutional: Reports systems reviewed and no addt'l complaints, except as documented Cardiovascular Cardiovascular: Reports systems reviewed and no addt'l complaints, except as documented Respiratory/Chest Respiratory/Chest: Reports systems reviewed and no addt'l complaints, except as documented Gastrointestinal Gastrointestinal: Reports systems reviewed and no addt'l complaints, except as documented Physical Exam Const alert, oriented x3 and no apparent distress HEENT Head and Scalp: atraumatic Resp normal respiratory effort GI soft to palpation and non-tender Bimanual Exam - Vag & Uterus: uterus non-tender Uterus Palpation: uterus fundus firm (below Umbilicus) Assessment & Plan (1) Vaginal delivery: COMMENT: KW/SM, 40.5, PPH, SD, Girl-Rizvi PLAN: Plan s/p PPD # 1 1. routine post delivery care 2. breast feeding- support given 3. rh positive 4. rubella immune
[2022-11-08 07:58] VITALS: BP 110/57; PULSE 93; RESP 15; TEMP 37.2; TEMP 37.4
== END 2022-11-08 10:05 | disposition home or self-care (01) | DRG 768 ==
PROVIDERS: Obstetrics & Gynecology; Admitting Provider Advanced Practice Midwife; PCP Student in an Organized Health Care Education/Training Program; Visit Provider Advanced Practice Midwife
DX: O48.0 Post-term pregnancy (principal); Z37.0 Single live birth; O69.81X0 Labor and delivery complicated by cord around neck, without compression, not applicable or unspecified; O72.1 Other immediate postpartum hemorrhage; O71.3 Obstetric laceration of cervix; O99.344 Other mental disorders complicating childbirth; F32.A Depression, unspecified; F41.9 Anxiety disorder, unspecified; Z3A.40 40 weeks gestation of pregnancy
CPT/HCPCS: 59025; 59050; 85025; 85027; 85610; 85730; 86780; 86850; 86900; 86901; 99221; J7120; A4216; G0378; J2405

== ENCOUNTER → 2023-12-21 | Outpatient (CLI) | payer MEDICAID, SELFPAY ==
[2023-12-25 18:08] LABS: HPV APTIMA, High Risk Negative (Negative)
== END | disposition home or self-care (01) ==
LOC: LABSPEC 14:22
PROVIDERS: PCP Student in an Organized Health Care Education/Training Program; Referring Provider Obstetrics & Gynecology; Visit Provider Obstetrics & Gynecology
DX: Z12.4 Encounter for screening for malignant neoplasm of cervix (principal)
CPT/HCPCS: 87624; 88175; G0145

== ENCOUNTER → 2024-02-18 | Outpatient (CLI) | payer MEDICAID, SELFPAY ==
[2024-02-22 00:07] LABS: Chlamydia By Nucleic Acid AMP Negative (Negative); Gonococcus By Nucleic Acid AMP Negative (Negative)
== END | disposition home or self-care (01) ==
LOC: LABSPEC 15:29
PROVIDERS: Referring Provider Advanced Practice Midwife; Visit Provider Advanced Practice Midwife
DX: O09.90 Supervision of high risk pregnancy, unspecified, unspecified trimester (principal); Z3A.00 Weeks of gestation of pregnancy not specified
CPT/HCPCS: 87086; 87491; 87591

== ENCOUNTER → 2024-02-23 | Outpatient (CLI) | payer MEDICAID, SELFPAY ==
--- OUTSIDE RECORDS SUMMARY | 2024-02-23 11:40 | XMS RPT_ITS | CCD ---
Author Organization [facility] Inform ion Partnership [facility] Care Team Providers Care Gas Jockey Name Role Phone Kenneth Marti Unavailable [phone] MARIAN SHEFFIELD Unavailable Unavailable SELF, SELF Unavailable Unavailable Kenneth Marti Primary Care Provider [phone] Kenneth Marti Unavailable [phone] Nick Agrawal Unavailable LIZA MCKEON Admitting Unavailab le KENNETH MARTI Primary Care Unavailable Kenneth Marti DO Primary Care Provider CAPRICE FERRIS Primary Care UnavailBREANN Guillermo Attending Unavailable PRIYANK VELÁZQUEZ Referring Unavailab CAPRICE Garcia Attending UnavailCAPRICE Núñez Primary Care Unavailmichelle e PRIYANK VELÁZQUEZ Referring Unavailab CAPRICE Garcia Primary Care UnavailPRIYANK Beavers Referring Unavailab PRIYANK Quispe Attending Unavailab CAPRICE Garcia Referring UnavailCAPRICE Núñez Attending UnavailCAPRICE Núñez Primary Care UnavailKenneth Raymundo DO Primary Care Provider KENNETH MARTI Primary Care Unavailable KENNETH MARTI Primary Care Unavailable KENNETH MARTI Primary Care Unavailable BREANN FAGAN Attending Unavailable Medications Current Medications Medication Drug Class(es) Dates Sig (Normalized) Sig (Original) acetaminophen 500 mg oral tablet (3 sources) Start: 05-09-2018 End: 05-14-2018 take 1 tablet by mouth every six hours as needed for pain acetaminophen (TYLENOL) 500 MG Tab tablet Indications: Sore throat Take 1 tablet by mouth every 6 hours as needed for Pain or Fever for up to 5 days. 0 05/09/2018 Active amoxicillin 875 mg / clavulanate 125 mg oral tablet (1 source) Penicillin-class Antibacterial Start: 04-09-2023 End: 04-19-2023 take 1 tablet by mouth twice daily amoxicillin-pot clavulanate (Augmentin) 875-125 mg tablet Indications: Mastitis, right, acute Take 1 tablet (875 mg) by mouth 2 times a day for 10 days. 20 tablet 0 04/09/2023 04/19/2023 Active 24 hr buPROPion hydrochloride 150 mg extended release oral tablet (3 sources) Aminoketone Start: 10-19-2019 End: 08-19-2021 take 1 tablet by mouth once daily buPROPion XL (WELLBUTRIN XL) 150 mg 24 hr tablet Take 1 tablet by mouth once daily. 30 tablet 1 10/19/2019 08/19/2021 Discontinued Wellbutrin Quant ity: 0 Refills: 0 Ordered: 28-Oct-2019 Rosanne Espinosa Generic Substitution Allowed Comment on above: Take 1 tablet by [facility] once daily. Escitalopram (2 sources) Serotonin Reuptake Inhibitor Lexapro Quantity: 0 Refills: 0 Ordered: 28-Oct-2019 Rosanne Espinosa Generic Substitution Allowed FLUoxetine 20 mg oral capsule (20 sources) Serotonin Reuptake Inhibitor Start: 2 End: 2 take 1 capsule by mouth once daily FLUoxetine (PROZAC) 20 mg capsule Take 1 capsule by mouth once daily. Take with 40 mg dose. 30 capsule 1 11/08/2021 12/08/2021 Active Start: 08-19-2021 End: 11-08-2021 take 1 capsule by mouth once daily FLUoxetine (PROZAC) 40 mg capsule Indications: Bipolar disorder, unspecified (HCC) , Other specified anxiety disorders Take 1 capsule by mouth once daily. 30 capsule 1 11/08/2021 Active Start: 07-11-2021 End: 08-19-2021 take 1 capsule by mouth once daily FLUoxetine (PROZAC) 20 mg capsule Indications: Bipolar affective disorder, remission status unspecified (HCC) , Anxiety with depression Take 1 capsule by mouth once daily. 30 capsule 0 08/19/2021 08/19/2021 Discontinued Comment on above: Take 1 capsule by [facility] once daily. Take 1 capsule by [facility] once daily. Take with 40 mg dose. Take 1 capsule by [facility] once daily. Take with 20 mg dose. TAKE 1 CAPSULE BY [facility] ONCE DAILY hydrOXYzine hydrochloride 25 mg oral tablet (9 sources) Antihistamine Start: 10-18-19 End: 11-17-19 take 1 tablet by mouth every eight hours as needed hydrOXYzine HCl (ATARAX) 25 mg tablet Take 1 tablet by mouth three times daily as needed for anxiety. 90 tablet 0 10/17/2021 11/16/2021 Active Start: 09-02-2021 End: 10-02-2021 take 1 tablet by mouth every eight hours as needed hydrOXYzine HCl (ATARAX) 25 mg tablet Take 1 tablet by mouth three times daily as needed for anxiety. 90 tablet 0 09/02/2021 10/02/2021 Active Comment on above: Take 1 tablet by [facility] three times daily as needed for anxiety. lamoTRIgine 100 mg oral tablet (14 sources) Mood Stabilizer, Anti-epileptic Agent Start: 10-17-2021 End: 11-22-2021 take 1 tablet by mouth once daily lamoTRIgine (LAMICTAL) 100 mg tablet Take 1 tablet by mouth once daily. 30 tablet 1 10/23/2021 11/22/2021 Active Start: 09-02-2021 End: 10-16-2021 take 0.5 tablet by mouth once daily, then take 1 tablet by mouth once daily lamoTRIgine (LAMICTAL) 100 mg tablet Take 0.5 tablets by mouth once daily for 14 days, THEN 1 tablet once daily. 37 tablet 1 09/02/2021 10/16/2021 Active Start: 08-19-2021 End: 09-02-2021 take 1 tablet by mouth once daily lamoTRIgine (LAMICTAL) 25 mg tablet Indications: Bipolar affective disorder, remission status unspecified (HCC) , Anxiety with depression Take 1 tablet by mouth once daily. 30 tablet 0 08/19/2021 09/02/2021 Discontinued (Course of therapy completed) lamoTRIgine 2 mg oral tablet, chewable dispersible Quantity: 0 Refills: 0 Ordered: 11-Jan-2020 Jordyn Sanchez Generic Substitution Allowed Comment on above: Take 1 tablet by kvng th once daily. Take 0.5 tablets by mouth once daily for 14 days, THEN 1 tablet once daily. lisdexamfetamine dimesylate 40 mg oral capsule (11 sources) Central Nervous System Stimulant Start: End: take 1 capsule by mouth once daily lisdexamfetamine (VYVANSE) 40 mg capsule Indications: Attention deficit disorder (ADD) without hyperactivity Take 1 capsule by mouth once daily for 30 days. 30 capsule 0 10/17/2021 11/16/2021 Active Start: 08-19-2021 End: 09-18-2021 take 1 capsule by mouth once daily lisdexamfetamine (VYVANSE) 40 mg capsule Indications: Attention deficit disorder (ADD) without hyperactivity Take 1 capsule by mouth once daily for 30 days. 30 capsule 0 08/19/2021 09/18/2021 Active Start: 07-10-2021 End: 08-19-2021 take 1 capsule by mouth once daily lisdexamfetamine (VYVANSE) 30 mg capsule Indications: Attention deficit disorder (ADD) without hyperactivity Take 1 capsule by mouth once daily for 30 days. 30 capsule 0 07/10/2021 08/19/2021 Discontinued Comment on above: Take 1 capsule by [facility] once daily for 30 days. ondansetron 4 mg disintegrating oral tablet (4 sources) Serotonin-3 Receptor Antagonist Start: 04-15-20 End: 04-18-20 take 1 tablet by mouth every eight hours for nausea ondansetron ODT (Zofran-ODT) 4 mg disintegrating tablet Indications: Nausea vomiting and diarrhea , Elevated bilirubin Take 1 tablet (4 mg) by mouth every 8 hours if needed for nausea or vomiting for up to 3 days. 9 tablet 0 04/15/2023 04/18/2023 Active Start: 04-15-2023 End: 04-15-2023 ondansetron (Zofran) injecti on 4 mg Start: 04-02-2020 take 1 tablet by kvng th every eight hours Zofran 4 mg oral tablet ; 1 tab(s) orally prn every 8 hours -for nausea and vomiting Quantity: 20 Refills: 0 Ordered: 01-Apr-2020 Augie Blankenship Start: 01-Apr-2020 Status: Discontinued Generic Substitution Allowed VIT 3-XQZG-KSTEW-DH A ORAL (1 source) VIT 7-I HKW-AENAE-SPG ORAL Take by mouth. 0 Active Vit-DSS-Fe Cbn-FA ( AD PO) (3 sources) Vit-DSS -Fe Cbn-FA ( AD PO) Take by mouth. 0 Active Vit-DSS -Fe Cbn-FA ( AD PO) Take by mouth. Active QUEtiapine 25 mg oral tablet (3 sources) Atypical Antipsychotic Start: 07-11-2021 End: 08-19-2021 take 1 tablet by mouth once daily at bedtime QUEtiapine (SEROQUEL) 25 mg tablet Indications: Bipolar affective disorder, remission status unspecified (HCC) , Anxiety with depression Take 1 tablet by mouth daily at bedtime. 30 tablet 0 07/11/2021 08/19/2021 Discontinued take 1 tablet by kvng th three times daily SEROquel 25 mg oral tablet ; 1 tab(s) or ally 3 times a day Quantity: 0 Refills: 0 Ordered: 11-Jan-2020 Jordyn Sanchez Generic Substitution Allowed Comment on above: Take 1 tablet by kvng th daily at bedtime. sertraline 25 mg oral tablet (1 source) Serotonin Reuptake Inhibitor Start: 12-18-2022 take 1 tablet by mouth once daily sertraline (Zoloft) 25 mg tablet Take 1 tablet (25 mg) by mouth once daily. 0 12/18/2022 Active Completed/Discontinued Medications Medication Drug Class(es) Dates Sig (Normalized) Sig (Original) loratadine 10 mg oral tablet (4 sources) Start: 05-09-2018 End: 11-15-2018 take 1 tablet by mouth once daily loratadine 10 MG Tab tablet Indications: Cough Take 1 tablet by mouth daily for 7 days. 7 tablet 0 05/09/2018 11/15/2018 Discontinued nitrofurantoin, macrocrystals 25 mg / nitrofurantoin, monohydrate 75 mg oral capsule (2 sources) Nitrofuran Antibacterial Start: 01-11-2020 End: 01-15-2020 take 1 capsule by mouth twice daily at mealtime Macrobid 100 mg oral capsule ; 1 cap(s) orally 2 times a day Quantity: 10 Refills: 0 Ordered: 11-Jan-2020 Nick Agrawal Start: 11-Jan-2020 End: 15-Jan-2020 Status: Discontinued Generic Substitution Allowed Comments: Finish all this medication unless otherwise directed by prescriber.May discolor urine or feces.Take with food or milk. Comment on above: Finish all this medi cation unless otherwise directed by prescriber.May discolor urine or feces.Take with food or milk. penicillin v potassium 500 mg oral tablet (2 sources) Start: 03-28-2020 End: 04-03-2020 take 1 tablet by mouth twice daily 1 hour(s) after mealtime penicillin V potassium 500 mg oral tablet ; 1 tab(s) orally 2 times a day Quantity: 14 Refills: 0 Ordered: 28-Mar-2020 Nick Agrawal Start: 28-Mar-2020 End: 03-Apr-2020 Status: Discontinued Generic Substitution Allowed Comments: Finish all this medication unless otherwise directed by prescriber.Take medication on an empty stomach 1 hour before or 2 to 3 hours after a meal unless otherwise directed by your doctor. Comment on above: Finish all this medi cation unless otherwise directed by prescriber.Take medication on an empty stomach 1 hour before or 2 to 3 hours after a meal unless otherwise directed by your doctor. Phukhejm-Hr-Qvn-Fe-FA ( VITAMIN) tab (12 sources) take 1 tablet by mouth once Buzbxorn-Hf-Tqg-F e-FA ( VITAMIN) tab Take 1 tablet by mouth. 0 Active Comment on above: Take 1 tablet by kvng th. 1000 ml sodium chloride 9 mg/ml injection (1 source) Start: 04-15-2023 End: 04-15-2023 sodium chloride 0.9 % bolus 1,000 mL sulfamethoxazole 800 mg / trimethoprim 160 mg oral tablet (2 sources) Dihydrofolate Reductase Inhibitor Antibacterial, Sulfonamide Antimicrobial Start: 01-23-2021 End: 01-27-2021 take 1 tablet by mouth every twelve hours Bactrim DS 800 mg-160 mg oral tablet ; 1 tab(s) orally every 12 hours Quantity: 10 Refills: 0 Ordered: 23-Jan-2021 Nick Agrawal Start: 23-Jan-2021 End: 27-Jan-2021 Status: Other Generic Substitution Allowed Comments: Avoid prolonged or excessive exposure to direct and/or artificial sunlight while taking this medication.Finish all this medication unless otherwise directed by prescriber.Medica tion should be taken with plenty of water. Comment on above: Avoid prolonged or e xcessive exposure to direct and/or artificial sunlight while taking this medication.Finish all this medication unless otherwise directed by prescriber.Medication should be taken with plenty of water. Problems Active Problems Problem Classification Problem Date Documented Date Episodic/Chronic Acute and chronic tonsillitis (12 sources) Hypertrophy of tonsils; Translations: [Hypertrophy of tonsils] Onset: 09-23-2013 09-23-2013 Chronic Alcohol-related disorders (12 sources) History of alcohol abuse; Translations: [Alcohol abuse, in remission] Onset: 03-04-2018 03-09-2018 Chronic Anxiety disorders (20 sources) Mixed anxiety and depressive disorder; Translations: [Other specified anxiety disorders] Onset: 06-03-2013 Chronic Asthma (12 sources) Exercise-induced asthma; Translations: [Exercise induced bronchospasm] Onset: 03-09-2018 03-09-2018 Chronic Attention-deficit, conduct, and disruptive behavior disorders (12 sources) Attention deficit hyperactivity disorder; Translations: [Attention-deficit hyperactivity disorder, unspecified type] Onset: 06-03-2013 03-09-2018 Chronic Disorders usually diagnosed in infancy, childhood, or adolescence (2 sources) Attention deficit hyperactivity disorder, predominantly inattentive type; Translations: [Other specified behavioral and emotional disorders with onset usually occurring in childhood and adolescence] Chronic Genitourinary symptoms and ill-defined conditions (4 sources) Urinary symptoms ; Translations: [Dysuria] 01-23-2021 Episodic Comment on above: URINARY SYMPTOMS Mood disorders (16 sources) Bipolar disorder; Translations: [Bipolar disorder, unspecified] Onset: 09-02-2021 Chronic Nutritional deficiencies (12 sources) Vitamin D deficiency; Translations: [Vitamin D deficiency, unspecified] Onset: 06-14-2013 06-14-2013 Chronic Other inflammatory condition of skin (12 sources) Discoid lupus erythematosus; 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] Onset: 10-11-2012 03-04-2018 Chronic Other inflammatory condition of skin (12 sources) Subacute cutaneous lupus erythematosus; Translations: [Subacute cutaneous lupus erythematosus] Onset: 08-06-2016 08-06-2016 Chronic Other liver diseases (1 source) Increased bilirubin level; Translations: [Unspecified jaundice] 04-15-2023 Episodic Other lower respiratory disease (2 sources) Cough; Translations: [Cough] Onset: 05-09-2018 Episodic Unclassified (1 source) Cough / 28() Onset: 05-09-2018 Unclassified (2 sources) BODY ACHE// FLANK PAIN// 04-10-2021 Comment on above: BODY ACHE// FLANK PA IN// Unclassified (1 source) NO SHOW Urinary tract infections (2 sources) Acute cystitis; Translations: [Acute cystitis] 01-23-2021 Episodic Past or Other Problems Problem Classification Problem Date Documented Da te Episodic/Chronic Immunizations and screening for infectious disease (12 sources) Contact with and (suspected) exposure to infections with a predominantly sexual mode of transmission; Translations: [Contact with or exposure to other viral diseases] Onset: 03-04-2018 03-17-2018 Episodic Malaise and fatigue (12 sources) Fatigue; Translations: [Other fatigue] Onset: 06-03-2013 06-03-2013 Episodic Nausea and vomiting (3 sources) Nausea, vomiting and diarrhea; Translations: [Nausea with vomiting, unspecified] Onset: 04-15-2023 04-15-2023 Episodic Nonmalignant breast conditions (2 sources) Mastitis without abscess; Translations: [Mastitis without abscess] Onset: 04-09-2023 Episodic Other complications of (12 sources) Spotting per vagina in ; Translations: [Spotting complicating , unspecified trimester] Onset: 03-04-2018 03-09-2018 Episodic Other gastrointestinal disorders (2 sources) Diarrhea, unspecified; Translations: [Diarrhea, unspecified] Onset: 04-15-2023 Episodic Other hematologic conditions (12 sources) H/O: skin disorder; Translations: [Personal history of diseases of the blood and blood-forming organs and certain disorders involving the immune mechanism] Onset: 03-04-2018 03-17-2018 Episodic Other liver diseases (2 sources) Unspecified jaundice; Translations: [Unspecified jaundice] Onset: 04-15-2023 Episodic Other upper respiratory infections (16 sources) Sore throat symptom; Translations: [Viral upper respiratory tract infection] Onset: 09-23-2013 09-23-2013 Episodic Screening and history of mental health and substance abuse codes (12 sources) H/O: depression; Translations: [Personal history of other mental and behavioral disorders] Onset: 03-04-2018 03-09-2018 Episodic NEGATED: Highlighted row has been ruled out!Unclassified (2 sources) Problem Results Test Name Value Interpretation Reference Range Facility Acute hepatitis 2000 panel ( S)on 04-15-2023 HAV IgM Ql (S) Non-Reactive Normal Nonreactive [facility] Comment on above: Result Comment: Biot in interference may cause falsely decreased results. Patients taking a Biotin dose of up to 5 mg/day should refrain from taking Biotin for 24 hours before sample collection. Providers may contact their local laboratory for further information. Performed By: #### 2 4363-4 #### SCOTT Schreiber ([id number]) [facility] ([facility]) [address] [place] [address]473 HBV core IgM Ql (S) [facility]-Reactive [facility] Comment on above: Result Comment: Resu lts from patients taking biotin supplements or receiving high-dose biotin therapy should be interpreted with caution due to possible interference with this test. Providers may contact their local laboratory for further information. Performed By: #### 2 4363-4 #### SCOTT Schreiber ([id number]) [facility] ([facility]) [address] [place] [address] 05241 HBV surface Ag IA Ql Non-Reactive Normal [facility] Comment on above: Result Comment: Biot in interference may cause falsely decreased results. Patients taking a Biotin dose of up to 5 mg/day should refrain from taking Biotin for 24 hours before sample collection. Providers may contact their local laboratory for further information. Performed By: #### 2 4363-4 #### SCOTT CEE L ([id number]) [facility] ([facility]) [id number] [place] [address] 25514 HCV Ab Ql (S) Non-Reactive Normal [facility] Comment on above: Result Comment: Resu lts from patients taking biotin supplements or receiving high-dose biotin therapy should be interpreted with caution due to possible interference with this test. Providers may contact their local laboratory for further information. Performed By: #### 2 4363-4 #### SCOTT CEE L ([id number]) [facility] ([facility]) [address] [place] [address] CBC W Auto Differential pane l (Bld)on 04-15-2023 Basophils (Bld) [#/Vol] 0.02 10*3/uL [facility] Basophils/100 WBC (Bld) 0.3 % 0.0 - 2.0 % [facility] Eosinophils (Bld) [#/Vol] 0.02 10*3/uL [facility] Eosinophils/100 WBC (Bld) 0.3 % 0.0 - 6.0 % [facility] Erythrocyte distribution width (RBC) [Ratio] 12.5 % 11.5 - 14.5 % [facility] Hematocrit (Bld) [Volume fraction] 42.8 % 36.0 - 46.0 % [facility] Hemoglobin (Bld) [Mass/Vol] 14.6 g/dL 12.0 - 16.0 g/dL [facility] Immature granulocytes (Bld) [#/Vol] 0.02 10*3/uL [facility] Immature granulocytes/100 WBC (Bld) 0.3 % 0.0 - 0.9 % [facility] Comment on above: Immature Granulocyte Count (IG) includes promyelocytes, myelocytes and metamyelocytes but does not include bands. Percent differential counts (%) should be interpreted in the context of the absolute cell counts (cells/UL). Interpretation and review of laboratory results Abnormal [facility] Lymphocytes (Bld) [#/Vol] 0.37 10*3/uL Low [facility] Lymphocytes/100 WBC (Bld) 5.4 % 13.0 - 44.0 % [facility] MCH (RBC) [Entitic mass] 29.9 pg 26.0 - 34.0 pg [facility] MCHC (RBC) [Mass/Vol] 34.1 g/dL 32.0 - 36.0 g/dL [facility] MCV (RBC) [Entitic vol] 88 fL 80 - 100 fL [facility] Monocytes (Bld) [#/Vol] 0.43 10*3/uL [facility] Monocytes/100 WBC (Bld) 6.3 % 2.0 - 10.0 % [facility] Neutrophils (Bld) [#/Vol] 5.93 10*3/uL [facility] Comment on above: Percent differential counts (%) should be interpreted in the context of the absolute cell counts (cells/uL). Neutrophils/100 WBC (Bld) 87.4 % 40.0 - 80.0 % [facility] Nucleated RBC/100 WBC (Bld) [Ratio] 0.0 % [facility] Platelets (Bld) [#/Vol] 280 10*3/uL [facility] RBC (Bld) [#/Vol] 4.89 10*6/uL [facility] WBC (Bld) [#/Vol] 6.8 10*3/uL [facility] Basophils (Bld) [#/Vol] 0.02 x10*3/uL Normal 0.00-0.10 [facility] Comment on above: Performed By: #### 5 7021-8 #### DAYANARA MONTOYA ([id number]) [facility] ([facility]) [address] [place] [address] 26401 Basophils/100 WBC (Bld) 0.3 % Normal 0.0-2.0 [facility] Comment on above: Performed By: #### 5 7021-8 #### DAYANARA MONTOYA ([id number]) [facility] ([facility]) [address] [place] [address] 95290 Eosinophils (Bld) [#/Vol] 0.02 x10*3/uL Normal 0.00-0.70 [facility] Comment on above: Performed By: #### 5 7021-8 #### DAYANARA MONTOYA ([id number]) [facility] ([facility]) [address] [place] [address] 65322 Eosinophils/100 WBC (Bld) 0.3 % Normal 0.0-6.0 [facility] Comment on above: Performed By: #### 5 7021-8 #### DAYANARA MONTOYA ([id number]) [facility] ([facility]) [address] [place] [address] 90569 Erythrocyte distribution width (RBC) [Ratio] 12.5 % Normal 11.5-14.5 [facility] Comment on above: Performed By: #### 5 7021-8 #### DAYANARA MONTOYA ([id number]) [facility] ([facility]) [address] [place] [address] 08812 Hematocrit (Bld) [Volume fraction] 42.8 % Normal 36.0-46.0 [facility] Comment on above: Performed By: #### 5 7021-8 #### DAYANARA MONTOYA ([id number]) [facility] ([facility]) [address] [place] [address] 31388 Hemoglobin (Bld) [Mass/Vol] 14.6 g/dL Normal 12.0-16.0 [facility] Comment on above: Performed By: #### 5 7021-8 #### DAYANARA MONTOYA ([id number]) [facility] ([facility]) [address] [place] [address] 95833 Immature granulocytes (Bld) [#/Vol] 0.02 x10*3/uL Normal 0.00-0.70 [facility] Comment on above: Performed By: #### 5 7021-8 #### DAYANARA MONTOYA ([id number]) [facility] ([facility]) [address] [place] [address] 50661 Immature granulocytes/100 WBC (Bld) 0.3 % Normal 0.0-0.9 [facility] Comment on above: Result Comment: Lisandra ture Granulocyte Count (IG) includes promyelocytes, myelocytes and metamyelocytes but does not include bands. Percent differential counts (%) should be interpreted in the context of the absolute cell counts (cells/UL). Performed By: #### 5 7021-8 #### DAYANARA MONTOYA ([id number]) [facility] ([facility]) [address] [place] [address] 43129 Lymphocytes (Bld) [#/Vol] 0.37 x10*3/uL Low 1.20-4.80 [facility] Comment on above: Performed By: #### 5 7021-8 #### DAYANARA MONTOYA ([id number]) [facility] ([facility]) [address] [place] [address] 77569 Lymphocytes/100 WBC (Bld) 5.4 % Normal 13.0-44.0 [facility] Comment on above: Performed By: #### 5 7021-8 #### DAYANARA MONTOYA ([id number]) [facility] ([facility]) [address] [place] [address] 38951 MCH (RBC) [Entitic mass] 29.9 pg Normal 26.0-34.0 [facility] Comment on above: Performed By: #### 5 7021-8 #### DAYANARA MONTOYA ([id number]) [facility] ([facility]) [address] [place] [address] 25322 MCHC (RBC) [Mass/Vol] 34.1 g/dL Normal 32.0-36.0 [facility] Comment on above: Performed By: #### 5 7021-8 #### DAYANARA MONTOYA ([id number]) [facility] ([facility]) [address] [place] [address] 87739 MCV (RBC) [Entitic vol] 88 fL Normal 80-100 [facility] Comment on above: Performed By: #### 5 7021-8 #### DAYANARA MONTOYA ([id number]) [facility] ([facility]) [address] [place] [address] 76237 Monocytes (Bld) [#/Vol] 0.43 x10*3/uL Normal 0.10-1.00 [facility] Comment on above: Performed By: #### 5 7021-8 #### DAYANARA MONTOYA ([id number]) [facility] ([facility]) [address] [place] [address] 36466 Monocytes/100 WBC (Bld) 6.3 % Normal 2.0-10.0 [facility] Comment on above: Performed By: #### 5 7021-8 #### DAYANARA MONTOYA ([id number]) [facility] ([facility]) [address] [place] [address] 32549 Neutrophils (Bld) [#/Vol] 5.93 x10*3/uL Normal 1.20-7.70 [facility] Comment on above: Result Comment: Perc ent differential counts (%) should be interpreted in the context of the absolute cell counts (cells/uL). Performed By: #### 5 7021-8 #### DAYANARA MONTOYA ([id number]) [facility] ([facility]) [address] [place] [address] 34020 Neutrophils/100 WBC (Bld) 87.4 % Normal 40.0-80.0 [facility] Comment on above: Performed By: #### 5 7021-8 #### DAYANARA MONTOYA ([id number]) [facility] ([facility]) [address] [place] [address] 00641 Nucleated RBC/100 WBC (Bld) [Ratio] 0.0 /100 WBCs Normal 0.0-0.0 [facility] Comment on above: Performed By: #### 5 7021-8 #### DAYANARA MONTOYA ([id number]) [facility] ([facility]) [address] [place] [address] 04221 Platelets (Bld) [#/Vol] 280 x10*3/uL Normal 150-450 [facility] Comment on above: Performed By: #### 5 7021-8 #### ADYANARA MONTOYA ([id number]) [facility] ([facility]) [address] [place] [address] 53881 RBC (Bld) [#/Vol] 4.89 x10*6/uL Normal 4.00-5.[address] [facility] Comment on above: Performed By: #### 5 7021-8 #### DAYANARA MONTOYA ([id number]) [facility] ([facility]) [address] [place] [address] 81751 WBC (Bld) [#/Vol] 6.8 x10*3/uL Normal 4.4-11.3 [facility] Comment on above: Performed By: #### 5 7021-8 #### DAYANARA MONTOYA ([id number]) [facility] ([facility]) [address] [place] [address] 78652 Comprehensive metabolic 2000 panelon 04-15-2023 Albumin BCP dye [Mass/Vol] 4.7 g/dL 3.4 - 5.0 g/dL [facility] ALP [Catalytic activity/Vol] 56 U/L 33 - 110 U/L [facility] ALT With P-5'-P [Catalytic activity/Vol] 10 U/L 7 - 45 U/L [facility] Comment on above: Patients treated wit h Sulfasalazine may generate falsely decreased results for ALT. Anion gap [Moles/Vol] 15 mmol/L 10 - 20 mmol/L [facility] AST With P-5'-P [Catalytic activity/Vol] 13 U/L 9 - 39 U/L [facility] Bilirubin [Mass/Vol] 2.8 mg/dL High 0.0 - 1.2 mg/dL [facility] Calcium [Mass/Vol] 9.4 mg/dL 8.6 - 10. 3 mg/dL [facility] Chloride [Moles/Vol] 102 mmol/L 98 - 107 mmol/L [facility] CO2 [Moles/Vol] 25 mmol/L 21 - 32 mmol/L [facility] Creatinine [Mass/Vol] 0.72 mg/dL 0.50 - 1.05 mg/dL [facility] GFR/1.73 sq M.predicted MDRD (S/P/Bld) [Vol rate/Area] - PINF [facility] Comment on above: Calculations of niharika mated GFR are performed using the 2020 CKD-EPI Study Refit equation without the race variable for the IDMS-Traceable creatinine methods. https://jasn.asnjournals.org/content//ASN.52341872 88 Glucose [Mass/Vol] 86 mg/dL 74 - 99 mg/dL [facility] Interpretation and review of laboratory results Abnormal [facility] Potassium [Moles/Vol] 3.8 mmol/L 3.5 - 5.3 mmol/L [facility] Protein [Mass/Vol] 7.3 g/dL 6.4 - 8.2 g/dL [facility] Sodium [Moles/Vol] 138 mmol/L 136 - 145 mmol/L [facility] Urea nitrogen [Mass/Vol] 13 mg/dL 6 - 23 mg/dL [facility] Albumin BCP dye [Mass/Vol] 4.7 g/dL Normal 3.4-5.0 [facility] Comment on above: Performed By: #### 2 4323-8 #### DAYANARA MONTOYA ([id number]) [facility] ([facility]) [address] [place] [address] ALP [Catalytic activity/Vol] 56 U/L Normal 33-110 [facility] Comment on above: Performed By: #### 2 4322-8 #### DAYANARA MONTOYA ([id number]) [facility] ([facility]) [address] [place] [address] 09839 ALT With P-5'-P [Catalytic activity/Vol] 10 U/L Normal 7-45 [facility] Comment on above: Result Comment: Kati ents treated with Sulfasalazine may generate falsely decreased results for ALT. Performed By: #### 2 4323-8 #### DAYANARA MONTOYA ([id number]) [facility] ([facility]) [address] [place] [address] Anion gap [Moles/Vol] 15 mmol/L Normal 10-20 [facility] Comment on above: Performed By: #### 2 432-8 #### DAYANARA MONTOYA ([id number]) [facility] ([facility]) [address] [place] [address] AST With P-5'-P [Catalytic activity/Vol] 13 U/L Normal 9-39 [facility] Comment on above: Performed By: #### 2 4323-8 #### DAYANARA MONTOYA ([id number]) [facility] ([facility]) [address] [place] [address] Bilirubin [Mass/Vol] 2.8 mg/dL High 0.0-1.2 [facility] Comment on above: Performed By: #### 2 4323-8 #### DAYANARA MONTOYA ([id number]) [facility] ([facility]) [address] [place] [address] Calcium [Mass/Vol] 9.4 mg/dL Normal 8.6-10.3 [facility] Comment on above: Performed By: #### 2 4323-8 #### DAYANARA MONTOYA ([id number]) [facility] ([facility]) [address] [place] [address] 79385 Chloride [Moles/Vol] 102 mmol/L Normal 98-107 [facility] Comment on above: Performed By: #### 2 4323-8 #### DAYANARA MONTOYA ([id number]) [facility] ([facility]) [address] [place] [address] 33734 CO2 [Moles/Vol] 25 mmol/L Normal 21-32 [facility] Comment on above: Performed By: #### 2 4323-8 #### DAYANARA MONTOYA ([id number]) [facility] ([facility]) [address] [place] [address] 44901 Creatinine [Mass/Vol] 0.72 mg/dL Normal 0.50-1.05 [facility] Comment on above: Performed By: #### 2 4323-8 #### DAYANARA MONTOYA ([id number]) [facility] ([facility]) [address] [place] [address] 45212 GFR/1.73 sq M.predicted MDRD (S/P/Bld) [Vol rate/Area] mL/min/{1.73_m2} Normal >60 [facility] Comment on above: Result Comment: Calc ulations of estimated GFR are performed using the 2020 CKD-EPI Study Refit equation without the race variable for the IDMS-Traceable creatinine methods. https://jasn.asnjournals.org/content/early//ASN.96078685 88 Performed By: #### 2 4323-8 #### DAYANARA MONTOYA ([id number]) [facility] ([facility]) [address] [place] [address] 59974 Glucose [Mass/Vol] 86 mg/dL Normal 74-99 [facility] Comment on above: Performed By: #### 2 4323-8 #### DAYANARA MONTOYA ([id number]) [facility] ([facility]) [address] [place] [address] Potassium [Moles/Vol] 3.8 mmol/L Normal 3.5-5.3 [facility] Comment on above: Performed By: #### 2 4323-8 #### DAYANARA MONTOYA ([id number]) [facility] ([facility]) [address] [place] [address] 99767 Protein [Mass/Vol] 7.3 g/dL Normal 6.4-8.2 [facility] Comment on above: Performed By: #### 2 4323-8 #### DAYANARA MONTOYA ([id number]) [facility] ([facility]) [address] [place] [address] 81599 Sodium [Moles/Vol] 138 mmol/L Normal 136-145 [facility] Comment on above: Performed By: #### 2 4323-8 #### DAYANARA MONTOYA ([id number]) [facility] ([facility]) [address] [place], [place] [address] Urea nitrogen [Mass/Vol] 13 mg/dL Normal 6-23 [facility] Comment on above: Performed By: #### 2 4323-8 #### DAYANARA MONTOYA ([id number]) [facility] ([facility]) [address] [place] [address] Influenza virus A and B and SARS-CoV-2 (COVID-19) identified NOMI+probe Nom (Resp)on 04-15-2023 FLUAV RNA NOMI+probe Ql (Resp) Not detected Not Detected [facility] FLUBV RNA NOMI+probe Ql (Resp) Not detected Not Detected [facility] Interpretation and review of laboratory results Normal [facility] SARS-CoV-2 (COVID-19) RNA NOMI+probe Ql (Resp) Not detected Not Detected [facility] This assay has received FDA Emergency Use Authorization (EUA) and is only authorized for the duration of time that circumstances exist to justify the authorization of the emergency use of in vitro diagnostic tests for the detection of SARS-CoV-2 virus and/or diagnosis of COVID-19 infection under section 564(b)(1) of the Act, 21 U.S.C. 360bbb-3(b)(1). Testing for SARS-CoV-2 is only recommended for patients who meet current clinical and/or epidemiological criteria as defined by federal, state, or local public health directives. This assay is an in vitro diagnostic nucleic acid amplification test for the qualitative detection of SARS-CoV-2, Influenza A, and Influenza B from nasopharyngeal specimens and has been validated for use at [facility]. Negative results do not preclude COVID-19 infections or Influenza A/B infections, and should not be used as the sole basis for diagnosis, treatment, or other management decisions. If Influenza A/B and RSV PCR results are negative, testing for Parainfluenza virus, Adenovirus and Metapneumovirus is routinely performed for [facility] pediatric oncology and intensive care inpatients, and is available on other patients by placing an add-on request. [facility] FLUAV RNA NOMI+probe Ql (Resp) Not detected Normal Not Detected [facility] Comment on above: Order Comment: This assay has received FDA Emergency Use Authorization (EUA) and is only authorized for the duration of time that circumstances exist to justify the authorization of the emergency use of in vitro diagnostic tests for the detection of SARS-CoV-2 virus and/or diagnosis of COVID-19 infection under section 564(b)(1) of the Act, 21 U.S.C. 360bbb-3(b)(1). Testing for SARS-CoV-2 is only recommended for patients who meet current clinical and/or epidemiological criteria as defined by federal, state, or local public health directives. This assay is an in vitro diagnostic nucleic acid amplification test for the qualitative detection of SARS-CoV-2, Influenza A, and Influenza B from nasopharyngeal specimens and has been validated for use at [facility]. Negative results do not preclude COVID-19 infections or Influenza A/B infections, and should not be used as the sole basis for diagnosis, treatment, or other management decisions. If Influenza A/B and RSV PCR results are negative, testing for Parainfluenza virus, Adenovirus and Metapneumovirus is routinely performed for [facility] pediatric oncology and intensive care inpatients, and is available on other patients by placing an add-on request. Performed By: #### 9 5423-0 #### NICHOLE LINDSAY ([id number]) [facility] ([facility]) [address] [place] [address] FLUBV RNA NOMI+probe Ql (Resp) Not detected Normal Not Detected [facility] Comment on above: Order Comment: This assay has received FDA Emergency Use Authorization (EUA) and is only authorized for the duration of time that circumstances exist to justify the authorization of the emergency use of in vitro diagnostic tests for the detection of SARS-CoV-2 virus and/or diagnosis of COVID-19 infection under section 564(b)(1) of the Act, 21 U.S.C. 360bbb-3(b)(1). Testing for SARS-CoV-2 is only recommended for patients who meet current clinical and/or epidemiological criteria as defined by federal, state, or local public health directives. This assay is an in vitro diagnostic nucleic acid amplification test for the qualitative detection of SARS-CoV-2, Influenza A, and Influenza B from nasopharyngeal specimens and has been validated for use at [facility]. Negative results do not preclude COVID-19 infections or Influenza A/B infections, and should not be used as the sole basis for diagnosis, treatment, or other management decisions. If Influenza A/B and RSV PCR results are negative, testing for Parainfluenza virus, Adenovirus and Metapneumovirus is routinely performed for [facility] pediatric oncology and intensive care inpatients, and is available on other patients by placing an add-on request. Performed By: #### 9 5423-0 #### NICHOLE LINDSAY ([id number]) [facility] ([facility]) [facility] [place] [address] SARS-CoV-2 (COVID-19) RNA NOMI+probe Ql (Resp) Not detected Normal Not Detected [facility] Comment on above: Order Comment: This assay has received FDA Emergency Use Authorization (EUA) and is only authorized for the duration of time that circumstances exist to justify the authorization of the emergency use of in vitro diagnostic tests for the detection of SARS-CoV-2 virus and/or diagnosis of COVID-19 infection under section 564(b)(1) of the Act, 21 U.S.C. 360bbb-3(b)(1). Testing for SARS-CoV-2 is only recommended for patients who meet current clinical and/or epidemiological criteria as defined by federal, state, or local public health directives. This assay is an in vitro diagnostic nucleic acid amplification test for the qualitative detection of SARS-CoV-2, Influenza A, and Influenza B from nasopharyngeal specimens and has been validated for use at [facility]. Negative results do not preclude COVID-19 infections or Influenza A/B infections, and should not be used as the sole basis for diagnosis, treatment, or other management decisions. If Influenza A/B and RSV PCR results are negative, testing for Parainfluenza virus, Adenovirus and Metapneumovirus is routinely performed for [facility] pediatric oncology and intensive care inpatients, and is available on other patients by placing an add-on request. Performed By: #### 9 5423-0 #### DAYANARA MONTOYA ([id number]) [facility] ([facility]) [address] [place] [address] Lipaseon 04-15-2023 Lipase [Catalytic activity/Vol] 11 U/L - 82 U/L [facility] Comment on above: I-sicckv-x-benzoquin one imine (metabolite of Acetaminophen)will generate erroneously low results in samples for patients that have taken toxic doses of acetaminophen. Lipase [Catalytic activity/V ol]on 04-15-2023 Interpretation and review of laboratory results Normal [facility] Venipuncture immediately after or during the administration of Metamizole may lead to falsely low results. Testing should be performed immediately prior to Metamizole dosing. [facility] No Panel Informationon 04-15 Extra Tube Hold for add-ons. [facility] Comment on above: Auto resulted. [facility] Triacylglycerol lipaseon Lipase [Catalytic activity/Vol] 11 U/L Normal [facility] Comment on above: Order Comment: Venip uncture immediately after or during the administration of Metamizole may lead to falsely low results. Testing should be performed immediately prior to Metamizole dosing. Result Comment: N-ac bovu-m-fmpswtpihlpe imine (metabolite of Acetaminophen)will generate erroneously low results in samples for patients that have taken toxic doses of acetaminophen. Performed By: #### 3 040-3 #### DAYANARA MONTOYA ([id number]) [facility] ([facility]) [address] [place] [address] US Abdomen RUQon 04-15-2023 Unremarkable ultrasound of the right upper quadrant. No cholelithiasis, gallbladder wall thickening, or biliary dilatation is appreciated. Signed by Dhiraj Anders MD TELERADIOLOGY STUDY: Right Upper Quadrant Ultrasound; 04/15/2023 4:00 PM INDICATION: Elevated bilirubin. COMPARISON: None Available. ACCESSION NUMBER(S): [id number] ORDERING CLINICIAN: BREANN BORJAS TECHNIQUE: Ultrasound of the Right Upper Quadrant. FINDINGS: LIVER: The liver demonstrates normal echogenicity. GALLBLADDER: The gallbladder is anechoic. There are no stones. There is no pericholecystic fluid or wall thickening. BILE DUCTS: The common bile duct measures 0.3 cm. There is no intrahepatic biliary dilatation. PANCREAS: The pancreas demonstrates a normal homogeneous echotexture with the tail not well seen due to overlying bowel gas. RIGHT KIDNEY: The right kidney measures 11.6 cm in length. Renal cortical echotexture is normal. There is no hydronephrosis. There are no stones. There are no cysts. TELERADIOLOGY Dhiraj Anders MD - 04/15/2023 STUDY: Right Upper Quadrant Ultrasound; 04/15/2023 4:00 PM INDICATION: Elevated bilirubin. COMPARISON: None Available. ACCESSION NUMBER(S): [id number] ORDERING CLINICIAN: BREANN BORJAS TECHNIQUE: Ultrasound of the Right Upper Quadrant. FINDINGS: LIVER: The liver demonstrates normal echogenicity. GALLBLADDER: The gallbladder is anechoic. There are no stones. There is no pericholecystic fluid or wall thickening. BILE DUCTS: The common bile duct measures 0.3 cm. There is no intrahepatic biliary dilatation. PANCREAS: The pancreas demonstrates a normal homogeneous echotexture with the tail not well seen due to overlying bowel gas. RIGHT KIDNEY: The right kidney measures 11.6 cm in length. Renal cortical echotexture is normal. There is no hydronephrosis. There are no stones. There are no cysts. IMPRESSION: Unremarkable ultrasound of the right upper quadrant. No cholelithiasis, gallbladder wall thickening, or biliary dilatation is appreciated. Signed by Dhiraj Anders MD [facility] Work Phone: Radiology Study observation (narrative) [facility] Work Phone: US Abdomen RUQOrdered By: Kaitlin Anders on 04-15-2023 [facility] Work Phone: US RIGHT UPPER QUADRANTon US RIGHT UPPER QUADRANT STUDY: Right Upper Quadrant Ultrasound; 04/15/2023 4:00 PM INDICATION: Elevated bilirubin. COMPARISON: None Available. ACCESSION NUMBER(S): [id number] ORDERING CLINICIAN: BREANN BORJAS TECHNIQUE: Ultrasound of the Right Upper Quadrant. FINDINGS: LIVER: The liver demonstrates normal echogenicity. GALLBLADDER: The gallbladder is anechoic. There are no stones. There is no pericholecystic fluid or wall thickening. BILE DUCTS: The common bile duct measures 0.3 cm. There is no intrahepatic biliary dilatation. PANCREAS: The pancreas demonstrates a normal homogeneous echotexture with the tail not well seen due to overlying bowel gas. RIGHT KIDNEY: The right kidney measures 11.6 cm in length. Renal cortical echotexture is normal. There is no hydronephrosis. There are no stones. There are no cysts. IMPRESSION: Unremarkable ultrasound of the right upper quadrant. No cholelithiasis, gallbladder wall thickening, or biliary dilatation is appreciated. Signed by Dhiraj Anders MD Normal [facility] Urinalysis complete W Reflex Culture panel (U)on 04-15-2023 Appearance (U) Hazy Abnormal Clear [facility] Bilirubin (U) [Mass/Vol] Negative NEGATIVE [facility] Color (U) Yellow Straw, Yellow [facility] Epithelial cells.squamous Auto (Urine sed) [#/Area] 10-25 (FEW) Reference range not established. /HPF [facility] Glucose Auto test strip (U) [Mass/Vol] Negative NEGATIVE mg/dL [facility] Interpretation and review of laboratory results Abnormal [facility] Ketones (U) [Mass/Vol] 20 (1+) Abnormal NEGATIVE mg/dL [facility] Leukocyte esterase Auto test strip Ql (U) Negative NEGATIVE [facility] Mucus Auto (Urine sed) [#/Area] 1+ Reference range not established. /LPF [facility] Nitrite Auto test strip Ql (U) Negative NEGATIVE [facility] pH (U) 5.0 [pH] 5.0, 5.5, 6.0, 6.5, 7.0, 7.5, 8.0 [facility] Protein (U) [Mass/Vol] 30 (1+) Abnormal NEGATIVE mg/dL [facility] RBC (U) [#/Vol] Negative NEGATIVE [facility] RBC Auto (Urine sed) [#/Area] NONE NONE, 1-2, 3-5 /HPF [facility] Specific gravity (U) [Rel density] 1.034 1.005 - 1.035 [facility] Urobilinogen (U) [Mass/Vol] mg/dL NINF - 2.0 mg/dL [facility] WBC Auto (Urine sed) [#/Area] 1-5 1-5, NONE /HPF [facility] Appearance (U) Hazy Normal Clear [facility] Comment on above: Performed By: #### 5 8077-9 #### DAYANARA MONTOYA ([id number]) [facility] ([facility]) [address] [place] [address] Bilirubin (U) [Mass/Vol] Negative Normal NEGATIVE [facility] Comment on above: Performed By: #### 5 8077-9 #### DAYANARA MONTOYA ([id number]) [facility] ([facility]) [address] [place] [address] Color (U) Yellow Normal Straw, Yellow [facility] Comment on above: Performed By: #### 5 8077-9 #### DAYANARA MONTOYA ([id number]) [facility] ([facility]) [address] [place] [address] 02218 Epithelial cells.squamous Auto (Urine sed) [#/Area] 10-25 (FEW) Normal Reference range not established. [facility] Comment on above: Performed By: #### 5 8077-9 #### DAYANARA MONTOYA ([id number]) [facility] ([facility]) [address] [place] [address] 62183 Glucose Auto test strip (U) [Mass/Vol] Negative Normal NEGATIVE [facility] Comment on above: Performed By: #### 5 8077-9 #### DAYANARA MONTOYA ([id number]) [facility] ([facility]) [address] [place] [address] Ketones (U) [Mass/Vol] 20 (1+) Abnormal NEGATIVE [facility] Comment on above: Performed By: #### 5 8077-9 #### DAYANARA MONTOYA ([id number]) [facility] ([facility]) [address] [place] [address] Leukocyte esterase Auto test strip Ql (U) Negative Normal NEGATIVE [facility] Comment on above: Performed By: #### 5 8077-9 #### DAYANARA MONTOYA ([id number]) [facility] ([facility]) [address] [place] [address] Mucus Auto (Urine sed) [#/Area] 1+ /LPF Normal Reference range not established. [facility] Comment on above: Performed By: #### 5 8077-9 #### DAYANARA MONTOYA ([id number]) [facility] ([facility]) [address] [place] [address] Nitrite Auto test strip Ql (U) Negative Normal NEGATIVE [facility] Comment on above: Performed By: #### 5 8077-9 #### DAYANARA MONTOYA ([id number]) [facility] ([facility]) [address] [place] [address] 80556 pH (U) 5.0 [pH] Normal 5.0, 5.5, 6.0, 6.5, 7.0, 7.5, 8.0 [facility] Comment on above: Performed By: #### 5 8077-9 #### DAYANARA MONTOYA ([id number]) [facility] ([facility]) [address] [place] [address] 69449 Protein (U) [Mass/Vol] 30 (1+) Normal NEGATIVE [facility] Comment on above: Performed By: #### 5 8077-9 #### DAYANARA MONTOYA ([id number]) [facility] ([facility]) [address] [place] [address] 34619 RBC (U) [#/Vol] Negative Normal NEGATIVE [facility] Comment on above: Performed By: #### 5 8077-9 #### DAYANARA MONTOYA ([id number]) [facility] ([facility]) [address] [place] [address] RBC Auto (Urine sed) [#/Area] NONE Normal NONE, 1-2, 3-5 [facility] Comment on above: Performed By: #### 5 8077-9 #### DAYANARA MONTOYA ([id number]) [facility] ([facility]) [address] [place] [address] Specific gravity (U) [Rel density] 1.034 Normal 1.005-1.035 [facility] Comment on above: Performed By: #### 5 8077-9 #### DAYANARA MONTOYA ([id number]) [facility] ([facility]) [address] [place] [address] Urobilinogen (U) [Mass/Vol] mg/dL Normal <2.0 [facility] Comment on above: Performed By: #### 5 8077-9 #### DAYANARA MONTOYA ([id number]) [facility] ([facility]) [address] [place] [address] WBC Auto (Urine sed) [#/Area] 1-5 Normal 1-5, NONE [facility] Comment on above: Performed By: #### 5 8077-9 #### DAYANARA MONTOYA ([id number]) [facility] ([facility]) [address] [place] [address] Provider Note - ED v3on 06-0 Provider Note - ED v3 Provider Note: Chart Review: HISTORY OF PRESENTING ILLNESS JORDYN is a 26 year old Female and was seen by me at 07-Oct-2021 13:48 for a chief complaint of urinary symptoms. The historian is the patient. Triage Information: Most recent Vital Sign Value Date Presenting Symptoms: dysuria.Quality is cramping and hesitancy. Context is Unknown. day(s). Timing is gradual onset. Modifying factors: Worse with urinating. Pertinent history is (recurrent UTI). PAST MEDICAL HISTORY ALLERGIES/INTOLERAN MARIANELA: No Known Allergies HEALTH HISTORY: No documented data. OUTPATIENT MEDICATIONS: Home Medications Review Status for Reconciliation: Complete Med Status: Patient Currently Takes Medications Drug Name: Wellbutrin Instructions: null Drug Name: Lexapro Instructions: null Drug Name: lamoTRIgine 2 mg oral tablet, chewable dispersible Instructions: null Drug Name: Vyvanse 10 mg oral capsule Instructions: 1 cap(s) orally once a day (in the morning) Drug Name: Bactrim DS 800 mg-160 mg oral tablet Instructions: 1 tab(s) orally 2 times a day SIGNIFICANT EVENTS: Past Medical History Description:DENIES Description:lupus Past Surgical History Description:right foot Social/Behavioral Description:pt denies use REVIEW OF SYSTEMS CONSTITUTIONAL: Negative for: chills and fever ENMTNose: Negative for: congestion GENITOURINARY: POSITIVE for: dysuria; MUSCULOSKELETAL: POSITIVE for: back pain PHYSICAL EXAM CONSTITUTIONAL: Well appearing, well nourished, awake, alert, oriented to person, place, time/situation and in no apparent distress. EYES: Clear bilaterally, pupils equal, round and reactive to light. GENITOURINARY: deferred MUSCULOSKELETAL: Spine appears normal, range of motion is not limited, no muscle or joint tenderness. SKIN: Skin normal color for race, warm, dry and intact. CRITICAL CARE VITAL SIGNS: T PRBP SpO2O2(LPM) %FiO2 Method 07-Oct-2021 14:00:[id number] 100rA [facility] MDM/ED COURSE: 1) acute cystitis: Patient was treated Bactrim twice daily x3 days, will await urine culture and sensitivity, she has an appointment set up with the PRODUCT REPRESENTATIVE this coming week. Patient courage push fluids, we discussed ways to mitigate these recurrent symptoms, she agrees with plan of care and was discharged with daughter.Differenti al Diagnosis: ovarian cyst, pyelonephritis and urinary tract infection Discussed Findings with: patient Data Reviewed: vital signs DISPOSITION Diagnosis/Annotatio n: ED Dx Name:Acute cystitis Code:N30.00 Disposition: discharged CONSULT CRITICAL CARE TIME Is this a critically ill patient: no Electronic Signatures: Nick Agrawal (PAC) (Signed 07-Oct-2021 15:15) Entered: HPI, PMH, ROS, PE, Results/Vital Signs, MDM/ED Course, Clinical Impression, Attestation, Chart Review Authored: HPI, PMH, ROS, PE, Results/Vital Signs, MDM/ED Course, Clinical Impression, Attestation, Chart Review, Scores Last Updated: 07-Oct-2021 15:15 by Nick Agrawal (PAC) Normal [facility] UA MICROSCOPICon 10-07-2021 BACTERIA 1+ /HPF Abnormal [facility] Comment on above: Performed By: #### U AMIC #### [address] [address] Mucus Ql (Urine sed) 1+ /LPF Normal [facility] Comment on above: Performed By: #### U AMIC #### [address] [address] RBC 19 /HPF Abnormal 0-5 [facility] Comment on above: Performed By: #### U AMIC #### [address] [address] SQUAMOUS EPITH. CELLS 1 /HPF Normal [facility] Comment on above: Performed By: #### U AMIC #### [address] [address] WBC (U) [#/Vol] /uL Abnormal 0-5 [facility] Comment on above: Performed By: #### U AMIC #### [address] [address] WBC CLUMPS MOD Normal [facility] Comment on above: Performed By: #### U AMIC #### [address] [address] URINALYSIS WITH CULTURE IF I NDICATEDon 10-07-2021 Appearance (U) HAZY Normal CLEAR [facility] Comment on above: Performed By: #### U ARFX #### [address] [address] Bilirubin Ql (U) Negative Normal NEGATIVE [facility] Comment on above: Performed By: #### U ARFX #### [address] [address] Color (U) Yellow Normal STRAW,YELLOW [facility] Comment on above: Performed By: #### U ARFX #### [place] [address] Glucose Ql (U) Negative Normal NEGATIVE [facility] Comment on above: Performed By: #### U ARFX #### [address] [address] Hemoglobin Ql (U) MODERATE(2+) Abnormal NEGATIVE [facility] Comment on above: Performed By: #### U ARFX #### [place] [address] Ketones Ql (U) Negative Normal NEGATIVE [facility] Comment on above: Performed By: #### U ARFX #### [place] [address] Leukocyte esterase Test strip Ql (U) LARGE(3+) Abnormal NEGATIVE [facility] Comment on above: Performed By: #### U ARFX #### [place] [address] Nitrite Ql (U) Positive Abnormal NEGATIVE [facility] Comment on above: Performed By: #### U ARFX #### [place] [address] pH (U) 6.0 [pH] Normal 5.0 - 8.0 [facility] Comment on above: Performed By: #### U ARFX #### [place] [address] Protein Ql (U) 100(2+) Abnormal NEGATIVE [facility] Comment on above: Performed By: #### U ARFX #### [place] [address] Specific gravity (U) [Rel density] 1.018 Normal 1.005 - 1.035 [facility] Comment on above: Performed By: #### U ARFX #### [place] [id number] Urobilinogen (U) [Mass/Vol] mg/dL Normal 0.0 - 1.9 [facility] Comment on above: Performed By: #### U ARFX #### [place] [address] Lab Specimen Source Normal [facility] Comment on above: Performed By: #### U ARFX #### [facility] [address] [place] [address] URINE CULTURE,BACTERIALon URINE CULTURE,BACTERIAL PATIENT: JORDYN ANDREA LOCATION: [facility] BILL#: [id number] : [birth year] AGE: SEX: F ORDERED BY: NICK AGRAWAL SOURCE: URINE COLLECTED: 10/07/21 15:13 ANTIBIOTICS AT [place].: RECEIVED : 10/08/21 10:48 SITE: Clean Catch/Voided R E S U L T S URINE CULTURE,BACTERIAL FINAL 10/10/21 15:18 ISOLATE1 : Escherichia coli >100,000 CFU/ML Organism E coli Antibiotic BP INTRP Ampicillin S Ceftriaxone S Cefazolin S Ciprofloxacin S Nitrofurantoin S Gentamicin S Levofloxacin S Piperc/Tazobact S Trimeth/Sulfa S __ S=SUSCEPTIBLE I=INTERMEDIATE R=RESISTANT SDD=SUSCEPTIBLE DOSE DEPENDENT NS=NONSUSCEPTIBLE X=REPORTED IN ERROR __ Normal [facility] Comment on above: Performed By: #### U [facility] #### [facility] [address] [place] [address] Maral 10-02-2021 KEITH Telephone (KRUPAWS) ---- JORDYN ANDREA ([id number]) 1995 F Date Time Provider Department 10/02/21 REGINA PEREZ During your visit today, we recorded the following information about you: Regina Perez APRN.LAUREN 10/02/2021 6:44 PM Signed Please call patient and let her know that I got her routine blood work results from [facility]. No concerns at all. Continue current medications. Thank you, Regina Perez APRN.LAUREN Cardoza LPN 10/02/2021 6:46 PM Signed Line busy . Will need to try back. Yumi Cardoza LPN 10/02/2021 7:00 PM Signed Gave information provided. Pt voices understanding. Allergies As of Date: 10/02/2021 (No Known Allergies) Date Reviewed: 09/02/2021 Reviewed by: Barrera Pascual LPN - Fully Assessed Reason for Visit: Results [95] Prescriptions as of 10/02/2021 - lisdexamfetamine (VYVANSE) 40 mg capsule Take 1 capsule by mouth once daily for 30 days. - FLUoxetine (PROZAC) 40 mg capsule TAKE 1 CAPSULE BY MOUTH ONCE DAILY - FLUoxetine (PROZAC) 20 mg capsule Take 1 capsule by mouth once daily. Take with 40 mg dose. - lamoTRIgine (LAMICTAL) 100 mg tablet Take 0.5 tablets by mouth once daily for 14 days, THEN 1 tablet once daily. - hydrOXYzine HCl (ATARAX) 25 mg tablet Take 1 tablet by mouth three times daily as needed for anxiety. - Kombzewk-Od-Xzd-Fe- FA ( VITAMIN) tab Take 1 tablet by mouth. Problem List As Of Date 10/02/2021 Noted Resolved Lupus [M32.9] 09/15/2012 10/11/2012 Discoid lupus erythematosus [L93.0] 10/11/2012 ADHD (attention deficit hyperactivity disorder)* 4 Fatigue [R53.83] 06/03/2013 Anxiety and depression [F41.9, F32.A] 06/03/2013 Vitamin D deficiency [E55.9] 06/14/2013 Sinusitis, acute [J01.90] 09/23/2013 Tonsillar hypertrophy [J35.1] 09/23/2013 Subacute cutaneous lupus erythematosus [L93.1] 08/06/2016 Spotting in [O26.859] 03/04/2018 History of depression [Z86.59] 03/04/2018 History of discoid lupus erythematosus [Z86.2] 03/04/2018 Exposure to genital herpes [Z20.2] 03/04/2018 History of alcohol abuse [F10.11] 03/04/2018 Patient request for diagnostic testing [Z01.89] 03/04/2018 Mild intermittent asthma without complication [*03/09/2018 03/09/2018 Exercise-induced asthma [J45.990] 03/09/2018 Bipolar 2 disorder (HCC) [F31.81] 09/02/2021 PAULY (generalized anxiety disorder) [F41.1] 09/02/2021 Encounter Status:Closed by YUMI CARDOZA on 10/02/21 [facility] ---- JORDYN ANDREA ([id number]) 1995 F Date Time Provider Department 10/02/21 REGINA PEREZ [facility] During your visit today, we recorded the following information about you: Beverly Ugarte LPN 10/02/2021 1:48 PM Signed Patient calling from [facility] Lab asking to have lab orders faxed to [phone]. Printed 6 lab orders and faxed as requested. Allergies As of Date: 10/02/2021 (No Known Allergies) Date Reviewed: 09/02/2021 Reviewed by: Barrera Pascual LPN - Fully Assessed Reason for Visit: fax lab orders to [facility] Lab [Other] Prescriptions as of 10/02/2021 - lisdexamfetamine (VYVANSE) 40 mg capsule Take 1 capsule by mouth once daily for 30 days. - FLUoxetine (PROZAC) 40 mg capsule TAKE 1 CAPSULE BY MOUTH ONCE DAILY - FLUoxetine (PROZAC) 20 mg capsule Take 1 capsule by mouth once daily. Take with 40 mg dose. - lamoTRIgine (LAMICTAL) 100 mg tablet Take 0.5 tablets by mouth once daily for 14 days, THEN 1 tablet once daily. - hydrOXYzine HCl (ATARAX) 25 mg tablet Take 1 tablet by mouth three times daily as needed for anxiety. - Aoknecne-Qi-Sxp-Fe- FA ( VITAMIN) tab Take 1 tablet by mouth. Problem List As Of Date 10/02/2021 Noted Resolved Lupus [M32.9] 09/15/2012 10/11/2012 Discoid lupus erythematosus [L93.0] 10/11/2012 ADHD (attention deficit hyperactivity disorder)* 4 Fatigue [R53.83] 06/03/2013 Anxiety and depression [F41.9, F32.A] 06/03/2013 Vitamin D deficiency [E55.9] 06/14/2013 Sinusitis, acute [J01.90] 09/23/2013 Tonsillar hypertrophy [J35.1] 09/23/2013 Subacute cutaneous lupus erythematosus [L93.1] 08/06/2016 Spotting in [O26.859] 03/04/2018 History of depression [Z86.59] 03/04/2018 History of discoid lupus erythematosus [Z86.2] 03/04/2018 Exposure to genital herpes [Z20.2] 03/04/2018 History of alcohol abuse [F10.11] 03/04/2018 Patient request for diagnostic testing [Z01.89] 03/04/2018 Mild intermittent asthma without complication [*03/09/2018 03/09/2018 Exercise-induced asthma [J45.990] 03/09/2018 Bipolar 2 disorder (HCC) [F31.81] 09/02/2021 PAULY (generalized anxiety disorder) [F41.1] 09/02/2021 Encounter Status:Closed by BEVERLY UGARTE LPN on 10/02/21 [facility] 09-02-2021 KEITH Telephone ([facility]YCBE) ---- JORDYN ANDREA ([id number]) 1995 F Date Time Provider Department 09/02/21 JESS GARCIA [facility] During your visit today, we recorded the following information about you: Barrera Pascual LPN 09/02/2021 10:19 AM Signed Message to call office to schedule a 4 week FU with Jess. Barrera Pascual LPN 09/11/2021 8:52 AM Signed Scheduled 10/21. Allergies As of Date: 09/02/2021 (No Known Allergies) Date Reviewed: 09/02/2021 Reviewed by: Barrera Pascual LPN - Fully Assessed Reason for Visit: Appointment [186] Prescriptions as of 09/11/2021 - FLUoxetine (PROZAC) 40 mg capsule Take 1 capsule by mouth once daily. Take with 20 mg dose. - FLUoxetine (PROZAC) 20 mg capsule Take 1 capsule by mouth once daily. Take with 40 mg dose. - lamoTRIgine (LAMICTAL) 100 mg tablet Take 0.5 tablets by mouth once daily for 14 days, THEN 1 tablet once daily. - hydrOXYzine HCl (ATARAX) 25 mg tablet Take 1 tablet by mouth three times daily as needed for anxiety. - lisdexamfetamine (VYVANSE) 40 mg capsule Take 1 capsule by mouth once daily for 30 days. - Otwwsvtt-Tl-Qtq-Fe- FA ( VITAMIN) tab Take 1 tablet by mouth. Problem List As Of Date 09/02/2021 Noted Resolved Lupus [M32.9] 09/15/2012 10/11/2012 Discoid lupus erythematosus [L93.0] 10/11/2012 ADHD (attention deficit hyperactivity disorder)* 4 Fatigue [R53.83] 06/03/2013 Anxiety and depression [F41.9, F32.A] 06/03/2013 Vitamin D deficiency [E55.9] 06/14/2013 Sinusitis, acute [J01.90] 09/23/2013 Tonsillar hypertrophy [J35.1] 09/23/2013 Subacute cutaneous lupus erythematosus [L93.1] 08/06/2016 Spotting in [O26.859] 03/04/2018 History of depression [Z86.59] 03/04/2018 History of discoid lupus erythematosus [Z86.2] 03/04/2018 Exposure to genital herpes [Z20.2] 03/04/2018 History of alcohol abuse [F10.11] 03/04/2018 Patient request for diagnostic testing [Z01.89] 03/04/2018 Mild intermittent asthma without complication [*03/09/2018 03/09/2018 Exercise-induced asthma [J45.990] 03/09/2018 Bipolar 2 disorder (HCC) [F31.81] 09/02/2021 APULY (generalized anxiety disorder) [F41.1] 09/02/2021 Encounter Status:Closed by BARRERA PASCUAL LPN on 09/11/21 [facility] ---- JORDYN ANDREA ([id number]) 1995 F Date Time Provider Department 08/19/21 ALEX MATTHEW During your visit today, we recorded the following information about you: Alex Matthew APRN.[facility] 08/19/2021 8:41 AM Signed Please call Jordyn and assist her to schedule with Jess, per today's consult, 08/19/2021. Alex Matthew APRN.LAUREN Hernández 08/19/2021 4:08 PM Signed .1st failed attempt to contact patient. Left message to return call. Leah Hernández PSS Allergies As of Date: 08/19/2021 (No Known Allergies) Date Reviewed: 06/14/2021 Reviewed by: Alex Matthew APRN.[employer] DOCUMENTS CLERK - Fully Assessed Reason for Visit: Scheduling [6821] Prescriptions as of 09/04/2021 - FLUoxetine (PROZAC) 40 mg capsule Take 1 capsule by mouth once daily. Take with 20 mg dose. - FLUoxetine (PROZAC) 20 mg capsule Take 1 capsule by mouth once daily. Take with 40 mg dose. - lamoTRIgine (LAMICTAL) 100 mg tablet Take 0.5 tablets by mouth once daily for 14 days, THEN 1 tablet once daily. - hydrOXYzine HCl (ATARAX) 25 mg tablet Take 1 tablet by mouth three times daily as needed for anxiety. - lisdexamfetamine (VYVANSE) 40 mg capsule Take 1 capsule by mouth once daily for 30 days. - Fgyjirai-Th-Qny-Fe- FA ( VITAMIN) tab Take 1 tablet by mouth. Problem List As Of Date 08/19/2021 Noted Resolved Lupus [M32.9] 09/15/2012 10/11/2012 Discoid lupus erythematosus [L93.0] 10/11/2012 ADHD (attention deficit hyperactivity disorder)* 4 Fatigue [R53.83] 06/03/2013 Anxiety and depression [F41.9, F32.A] 06/03/2013 Vitamin D deficiency [E55.9] 06/14/2013 Sinusitis, acute [J01.90] 09/23/2013 Tonsillar hypertrophy [J35.1] 09/23/2013 Subacute cutaneous lupus erythematosus [L93.1] 08/06/2016 Spotting in [O26.859] 03/04/2018 History of depression [Z86.59] 03/04/2018 History of discoid lupus erythematosus [Z86.2] 03/04/2018 Exposure to genital herpes [Z20.2] 03/04/2018 History of alcohol abuse [F10.11] 03/04/2018 Patient request for diagnostic testing [Z01.89] 03/04/2018 Mild intermittent asthma without complication [*03/09/2018 03/09/2018 Exercise-induced asthma [J45.990] 03/09/2018 Encounter Status:Closed by ALEX MATTHEW on 09/04/21 [facility] Provider Note - ED v3on 12-0 Provider Note - ED v3 Provider Note: Chart Review: HISTORY OF PRESENTING ILLNESS JORDYN is a 25 year old Female and was seen by me at 10-Apr-2021 15:25 for a chief complaint of flank pain. The historian is the patient. Triage Information: Most recent Vital Sign Value Date Presenting Symptoms: frequency. Patient denies chills, dysuria, fever, flank pain, hematuria, malaise, nausea and urgency. Located in the flank area. Quality is cramping. Context is Unknown. The symptoms started yesterday. Timing is gradual onset. Modifying factors: Better with movement and OTC medication (tolerable with APAP). Worse with lying down and urinating. Pertinent history is (h/o pyelonephritis as a 18y/o). PAST MEDICAL HISTORY ALLERGIES/INTOLERAN MARIANELA: No Known Allergies HEALTH HISTORY: No documented data. OUTPATIENT MEDICATIONS: Home Medications Review Status for Reconciliation: Complete Med Status: Patient Currently Takes Medications Drug Name: Wellbutrin Instructions: null Drug Name: Lexapro Instructions: null Drug Name: SEROquel 25 mg oral tablet Instructions: 1 tab(s) orally 3 times a day Drug Name: lamoTRIgine 2 mg oral tablet, chewable dispersible Instructions: null SIGNIFICANT EVENTS: Past Medical History Description:DENIES Description:lupus Past Surgical History Description:right foot Social/Behavioral Description:pt denies use PRODUCT REPRESENTATIVE: Is : maybe Is : no Order Test: order urine test REVIEW OF SYSTEMS CONSTITUTIONAL: Negative for: chills, diaphoresis, fever and malaise ENMTNose: Negative for: congestion and discharge Throat/Neck: Negative for: throat pain RESPIRATORY: Negative for: cough and wheezing GASTROINTESTINAL: Negative for: abdominal pain, diarrhea and vomiting; change in bowel habits GENITOURINARY: ( left flank pain) POSITIVE for: frequency; Negative for: hematuria and urgency; MUSCULOSKELETAL: Negative for: joint pain NEUROLOGICAL: Negative for: dizziness and headache; PHYSICAL EXAM CONSTITUTIONAL: Well appearing, well nourished, awake, alert, oriented to person, place, time/situation and in no apparent distress. HENMT: Airway patent, ears with clear tympanic membranes bilaterally. Nasal mucosa clear. Mouth with normal mucosa. Throat has no vesicles, no oropharyngeal exudates and uvula is midline. Face with no lymph node enlargement. EYES: Clear bilaterally, pupils equal, round and reactive to light. left eye noted mild exophthalmus CARDIOVASCULAR: Normal rate, regular rhythm. Heart sounds S1, S2. No murmurs, rubs or gallops. PMI non-displaced. RESPIRATORY: Breath sounds clear and equal bilaterally. GASTROINTESTINAL: Abdomen soft, non-distended, no rebound, no guarding. Bowel sounds normal in all 4 quadrants. no CVA tenderness & no organomegaly specifically no splenomegaly. MUSCULOSKELETAL: Spine appears normal, range of motion is not limited, no muscle or joint tenderness. no midline back pain NEUROLOGICAL: Alert and oriented, no focal deficits, no motor or sensory deficits. SKIN: Skin normal color for race, warm, dry and intact. No evidence of trauma. CRITICAL CARE RESULTS: Recent Lab Results: I have reviewed these laboratory results: Urinalysis 10-Apr-2021 15:30:00 ResultValue Color, Urine Yellow Reference Range: STRAW,YELLOW Appearance, Urine HAZY Specific [place], Urine 1.026 pH, Urine 5.0 Protein, Urine NEGATIVE Glucose, Urine NEGATIVE Blood, Urine NEGATIVE Ketones, Urine NEGATIVE Bilirubin, Urine NEGATIVE Urobilinogen, Urine <2.0 Nitrite, Urine Negative Leukocyte Esterase, Urine NEGATIVE VITAL SIGNS: T PRBP SpO2O2(LPM) %FiO2 Method 10-Apr-2021 14:42:[id number] 99RA [facility]/ED COURSE: 1) Left flank pain: standing lab draw orders provided, called pt with results of Urinalysis, discussed supportive care as goal & she was given a work note. Discussed Findings with: patient Data Reviewed: vital signs Conducted Detailed Discussion with Patient and/or Guardian Regarding: lab results and need for outpatient follow-up DISPOSITION Diagnosis/Annotatio n: ED Dx Name:Left flank pain, chronic Code:R10.9 Disposition: discharged CONSULT CRITICAL CARE TIME Is this a critically ill patient: no Electronic Signatures: Nick Agrawal (PAC) (Signed 10-Apr-2021 22:50) Authored: HPI, PMH, ROS, PE, Results/Vital Signs, MDM/ED Course, Clinical Impression, Attestation, Chart Review, Scores Last Updated: 10-Apr-2021 22:50 by Nick Agrawal (PAC) [facility] URINALYSISon 04-10-2021 Appearance (U) HAZY Normal CLEAR [facility] Comment on above: Performed By: #### U A #### [address] [address] Bilirubin Ql (U) Negative Normal NEGATIVE [facility] Comment on above: Performed By: #### U A #### [address] [address] Color (U) Yellow Normal STRAW,YELLOW [facility] Comment on above: Performed By: #### U A #### [address] [address] Glucose Ql (U) Negative Normal NEGATIVE [facility] Comment on above: Performed By: #### U A #### [address] [address] Hemoglobin Ql (U) Negative Normal NEGATIVE [facility] Comment on above: Performed By: #### U A #### [address] [address] Ketones Ql (U) Negative Normal NEGATIVE [facility] Comment on above: Performed By: #### U A #### [address] [address] Leukocyte esterase Test strip Ql (U) Negative Normal NEGATIVE [facility] Comment on above: Performed By: #### U A #### [address] [address] Nitrite Ql (U) Negative Normal NEGATIVE [facility] Comment on above: Performed By: #### U A #### [address] [address] pH (U) 5.0 [pH] Normal 5.0 - 8.0 [facility] Comment on above: Performed By: #### U A #### [address] [address] Protein Ql (U) Negative Normal NEGATIVE [facility] Comment on above: Performed By: #### U A #### [address] [address] Specific gravity (U) [Rel density] 1.026 Normal 1.005 - 1.035 [facility] Comment on above: Performed By: #### U A #### [address] [address] Urobilinogen (U) [Mass/Vol] mg/dL Normal 0.0 - 1.9 [facility] Comment on above: Performed By: #### U A #### [address] [address] Provider Note - ED v3on 01-03 Provider Note - ED v3 Provider Note: Chart Review: ED NOTES ED NOTES: ====HPI==== Ms. Sharma is a 25-year-old female presents for evaluation of dysuria. Patient reports several days of increased urinary frequency, mild suprapubic discomfort, and change in urine color/consistency = hesitancy. Patient denies fever, nausea, vomiting, or other constitutional signs and symptoms. Patient reports similar episodes in the past diagnosed as urinary tract infections. No other complaints, in the past has had history of recurrent UTI and treatment with a history of pyelonepHRITIS. Patient denies any new purchase or use of new toilet paper, she denies any new sexual encounters or contacts, she denies any vaginal discharge. Character: Severity: Mild to moderate Exacerbated by: urinating Improved by: nothing yet PMHX: H/O UTI H/O PYELO lupus PSHX: right foot sx Social HX: denies TOBACCO denies ETOH denies DRUGS Occupation: employed ====Physical Exam==== VITALS: reviewed Constitutional/Gene ral: Alert and conversant, well appearing, nontoxic, and in NAD. Eyes: PER, EOMI, pupils 4mm b/l Respiratory: not in respiratory distress. Chest: normal chest movement GI: no CVA tenderness deferred. Musculoskeletal: Moves all extremities Integument: Skin warm and dry Neurologic: AAOx3, pleasant, sitting upright Psychiatric: Normal affect. ====ED Course and Medical Decision Making==== Differential diagnosis includes, but is not limited to: acute cystitis, pyelonephritis, bladder cystocele, vaginitis, STI, interstitial cystitis Portions of this note were dictated by speech recognition. An attempt at proof reading was made to minimize errors. Minor errors in fire coordinator may be present. Please call if questions.. HISTORY OF PRESENTING ILLNESS JORDYN is a 25 year old Female and was seen by me at 23-Jan-2021 16:22. Triage Information: Most recent Vital Sign Value Date PAST MEDICAL HISTORY ALLERGIES/INTOLERAN MARIANELA: No Known Allergies HEALTH HISTORY: No documented data. OUTPATIENT MEDICATIONS: Home Medications Review Status for Reconciliation: Incomplete Med Status: Incomplete Medication History Drug Name: Wellbutrin Instructions: null Drug Name: Lexapro Instructions: null Drug Name: SEROquel 25 mg oral tablet Instructions: 1 tab(s) orally 3 times a day Drug Name: lamoTRIgine 2 mg oral tablet, chewable dispersible Instructions: null Drug Name: Macrobid 100 mg oral capsule Instructions: 1 cap(s) orally 2 times a day Drug Name: penicillin V potassium 500 mg oral tablet Instructions: 1 tab(s) orally 2 times a day Drug Name: Zofran 4 mg oral tablet Instructions: 1 tab(s) orally prn every 8 hours -for nausea and vomiting Drug Name: Bactrim DS 800 mg-160 mg oral tablet Instructions: 1 tab(s) orally every 12 hours SIGNIFICANT EVENTS: Past Medical History Description:DENIES Description:lupus Past Surgical History Description:right foot Social/Behavioral Description:pt denies use PRODUCT REPRESENTATIVE: Is : no Is : no REVIEW OF SYSTEMS CONSTITUTIONAL: Negative for: chills and fever GENITOURINARY: POSITIVE for: dysuria, frequency and urgency; Negative for: strong smelling urine, vaginal bleeding and vaginal discharge; CRITICAL CARE VITAL SIGNS: T PRBP SpO2O2(LPM) %FiO2 Method 23-Jan-2021 16:19:[id number] ra MARIA INES MDM/ED COURSE: 1) acute cystitis: Patient be treated with Bactrim x5 days, we discussed treatment plan at bedside, discussed the likelihood of the most common bacteria being E. coli is possible source, we did attempt to review past records and up to 2018 patient has had nothing with contaminants, she has nitrite positive urine here today on a [id number] urinalysis, which will be treated empirically.Discuss ed Findings with: patient Data Reviewed: old records and vital signs DISPOSITION Diagnosis/Annotatio n: ED Dx Name:Acute cystitis Code:N30.00 Disposition: discharged CONSULT CRITICAL CARE TIME Is this a critically ill patient: no Electronic Signatures: Nick Agrawal (PAC) (Signed 23-Jan-2021 16:38) Authored: ED Notes, HPI, PMH, ROS, Results/Vital Signs, MDM/ED Course, Clinical Impression, Attestation, Chart Review, Scores Last Updated: 23-Jan-2021 16:38 by Nick Agrawal (PAC) Normal [facility] C Urineon 11-20-2018 C Urine Final Report: Rare Normal skin chloé isolated Normal [facility] Comment on above: Performed By: #### 2 [id number] #### JODI Microbiology Subsection [address] [place] [address] Auto Diffon 11-18-2018 Basophils (Bld) [#/Vol] 0.1 E3/mcL Normal 0.0-0.2 [facility] Comment on above: Order Comment: Order Added by Discern Expert. Performed By: #### 2 [id number] #### JODI RemHemo [address] [place] [address] Basophils/100 WBC (Bld) 1.0 % Normal 0.0-2.0 [facility] Comment on above: Order Comment: Order Added by Discern Expert. Performed By: #### 2 [id number] #### JODI RemHemo [address] [place] [address] Eos Absolute 0.1 E3/mcL Normal 0.0-0.7 [facility] Comment on above: Order Comment: Order Added by Discern Expert. Performed By: #### 2 [id number] #### JODI RemHemo [address] [place] [address] Eosinophils/100 WBC (Bld) 1.6 % Normal 0.0-11.0 [facility] Comment on above: Order Comment: Order Added by Discern Expert. Performed By: #### 2 [id number] #### JODI MitchellHemo [address] [place] [address] Lymphocytes (Bld) [#/Vol] 1.3 E3/mcL Normal 1.2-3.4 [facility] Comment on above: Order Comment: Order Added by Discern Expert. Performed By: #### 2 [id number] #### JODI MitchellHemo [address] [place] [address] Lymphocytes/100 WBC (Bld) 22.3 % Normal 20.0-55.0 [facility] Comment on above: Order Comment: Order Added by Discern Expert. Performed By: #### 2 [id number] #### JODI MitchellHemo [address] [place] [address] Scott Absolute 0.5 E3/mcL Normal 0.0-0.7 [facility] Comment on above: Order Comment: Order Added by Discern Expert. Performed By: #### 2 [id number] #### JODI MitchellHemo [address] [place], [place] [address] Monocytes/100 WBC (Bld) 8.4 % Normal 0.0-10.0 [facility] Comment on above: Order Comment: Order Added by Discern Expert. Performed By: #### 2 [id number] #### JODI Norwoodo [address] [place] [address] Neutro Absolute 3.8 E3/mcL Normal 1.4-6.5 [facility] Comment on above: Order Comment: Order Added by Discern Expert. Performed By: #### 2 [id number] #### JODI MitchellHemo [address] [place], [place] [address] Neutro Auto 66.7 % Normal 37.0-75.0 [facility] Comment on above: Order Comment: Order Added by Discern Expert. Performed By: #### 2 [id number] #### JODI MitchellHemo [address] [place] [address] CBC w/ Auto Diffon 9 Erythrocyte distribution width (RBC) [Ratio] 13.3 % Normal 11.5-14.5 [facility] Comment on above: Performed By: #### 2 [id number] #### JODI MitchellHemo [address] [place] [address] Hematocrit (Bld) [Volume fraction] 35.9 % Low 36.0-48.0 [facility] Comment on above: Performed By: #### 2 [id number] #### JODI MitchellHemo [address] [place] [address] Hemoglobin (Bld) [Mass/Vol] 12.2 g/dL Normal 12.0-16.0 [facility] Comment on above: Performed By: #### 2 [id number] #### JODI MitchellHemo [facility] [place] [address] MCH (RBC) [Entitic mass] 31.1 pg High 27.0-31.0 [facility] Comment on above: Performed By: #### 2 [id number] #### JODI MitchellHemo [facility] [place] [address] MCHC (RBC) [Mass/Vol] 34.1 g/dL Normal 33.0-37.0 [facility] Comment on above: Performed By: #### 2 [id number] #### JODI MitchellHemo [address] [place] [address] MCV (RBC) [Entitic vol] 91.2 fL Normal 78.0-100.0 [facility] Comment on above: Performed By: #### 2 [id number] #### JDOI MitchellHemo [facility] [place] [address] Platelet mean volume (Bld) [Entitic vol] 7.3 fL Low 7.4-11.0 [facility] Comment on above: Performed By: #### 2 [id number] #### JODI MitchellHemo [facility] [place] [address] Platelets (Bld) [#/Vol] 255 E3/mcL Normal 130-400 [facility] Comment on above: Performed By: #### 2 [id number] #### JODI RemHemo [address] [place] [address] RBC (Bld) [#/Vol] 3.93 E6/mcL Normal 3.90-5.40 [facility] Comment on above: Performed By: #### 2 [id number] #### JODI RemHemo [address] [place] [address] WBC (Bld) [#/Vol] 5.6 E3/mcL Normal 3.6-11.0 [facility] Comment on above: Performed By: #### 2 [id number] #### JODI RemHemo [address] [place] [address] UA Completeon 11-18-2018 Color (U) Yellow Normal Yellow [facility] Comment on above: Performed By: #### 8 [id number] #### JODI Urinalysis Automated Subsection [address] [place], [place] [address] Glucose (U) [Mass/Vol] Negative Normal Negative [facility] Comment on above: Performed By: #### 8 [id number] #### JODI Urinalysis Automated Subsection [address] [place] [address] Ketones Ql (U) Negative Normal Negative [facility] Comment on above: Performed By: #### 8 [id number] #### JODI Urinalysis Automated Subsection [address] [place], [place] [address] RBC (U) [#/Vol] /uL Abnormal 0-3 [facility] Comment on above: Performed By: #### 8 [id number] #### JODI Urinalysis Automated Subsection [address] [place] [address] UA Blood 3+ Normal Negative [facility] Comment on above: Performed By: #### 8 [id number] #### JODI Urinalysis Automated Subsection [address] [place] [address] UA Bacteria Trace Abnormal None [facility] Comment on above: Performed By: #### 8 [id number] #### JODI Urinalysis Automated Subsection [address] [place] [address] UA Clarity SltCloudy Abnormal Clear [facility] Comment on above: Performed By: #### 8 [id number] #### JODI Urinalysis Automated Subsection [address] [place] [address] UA Leuk Est 3+ Abnormal Negative [facility] Comment on above: Performed By: #### 8 [id number] #### JODI Urinalysis Automated Subsection [address] [place] [address] UA Mucous Trace Abnormal Trace [facility] Comment on above: Performed By: #### 8 [id number] #### JODI Urinalysis Automated Subsection [address] [place] [address] UA Nitrite Negative Normal Negative [facility] Comment on above: Performed By: #### 8 [id number] #### JODI Urinalysis Automated Subsection [address] [place] [address] UA pH 5.0 Normal 4.6-8.0 [facility] Comment on above: Performed By: #### 8 [id number] #### JODI Urinalysis Automated Subsection [address] [place] [address] UA Protein Negative Normal Negative [facility] Comment on above: Performed By: #### 8 [id number] #### JODI Urinalysis Automated Subsection [address] [place] [address] UA Spec Grav 1.021 Normal 1.003-1.030 [facility] Comment on above: Performed By: #### 8 [id number] #### JODI Urinalysis Automated Subsection [address] [place] [address] UA Squam Epithelial 0-5 Normal 0-5 [facility] Comment on above: Performed By: #### 8 [id number] #### JODI Urinalysis Automated Subsection [address] [place] [address] UA Urobilinogen Negative Normal [facility] Comment on above: Result Comment: Due to a manufacturing issue, low positive urobilinogen results may be fasely positive. Correlate with urine bilirubin and additional clinical/laboratory findings to assess the risk of hemolytic anemia or liver disease. If clinically indicated, repeat testing with an alternate method is available by contacting the laboratory within 24 hours. Performed By: #### 8 [id number] #### JODI Urinalysis Automated Subsection [address] [place] [address] UA WBC >50 Abnormal 0-5 [facility] Comment on above: Performed By: #### 8 [id number] #### JODI Urinalysis Automated Subsection [address] [place] [address] Urobilinogen Qn (U) Negative Normal Negative [facility] Comment on above: Performed By: #### 8 [id number] #### JODI Urinalysis Automated Subsection [address] [place], [place] [address], [place] [address] US Pelvis Non-OB Completeon 11-18-2018 US Pelvis Non-OB Complete Exam Date/Time: 11/18/2018 13:22 EDT Reason for Exam: bleeding and clots 8 days post ;Other (please specify) Report STUDY: US Pelvis Non-OB Complete; 11/18/2018 1:22 pm INDICATION: Other (please specify). COMPARISON: None. ACCESSION NUMBER(S): [id number] ORDERING CLINICIAN: Jason Piña TECHNIQUE: Transabdominal multiple multiplanar static wills scale, color and spectral waveform sonographic images of the pelvis were obtained. FINDINGS: UTERUS: The uterus is bulky and heterogenous in echogenicity measuring 12.0 x 6.8 x 9.2 cm most consistent with uterus. ENDOMETRIUM: The endometrium is normal. Endometrial stripe thickness measures 1.0 cm. RIGHT ADNEXA: The right ovary measures 3.2 x 2.4 x 1.8 cm. No focal lesions identified. Normal arterial spectral waveform is documented in the right ovary. LEFT ADNEXA: The left ovary measures 2.6 x 1.5 x 2.0 cm. No focal lesions identified. Normal arterial spectral waveform is documented in the left ovary. CUL DE SAC: No free fluid. IMPRESSION: 1. uterus otherwise unremarkable pelvic ultrasound. FINAL REPORT Dictated: 11/18/2018 1:25 pm Ananth Orellana MD Signed (Electronic Signature): 11/18/2018 1:25 pm Signed by: Ananth Orellana MD Technologist: [facility] POCT URINALYSIS DIPSTICK NON AUTOMATEDon 11-15-2018 Amorphous sediment LM Ql (Urine sed) [facility] Appearance (Body fld) cloudy [facility] Bacteria LM Ql (Urine sed) [facility] Bilirubin Ql (U) Negative [facility] Casts LM.LPF (Urine sed) [#/Area] [facility] Color (U) light yellow [facility] Crystals LM Nom (Urine sed) [facility] Epithelial cells.squamous LM.HPF (Urine sed) [#/Area] [facility] Flow cytometry specialist review Quan (Unsp spec) [Interp] [facility] Interpretation and review of laboratory results Abnormal [facility] Ketones [Mass/Vol] Negative mg/dL [facility] Leukocyte esterase Qn (U) [facility] Leukocyte esterase Test strip Ql (U) moderate [facility] Nitrite Ql (U) Negative [facility] pH (U) 7.5 [pH] Abnormal [facility] POCT GLUCOSE, URINE Negative mg/dL [facility] Protein Ql (U) Negative mg/dL [facility] TH RBC LM.HPF (Urine sed) [#/Area] [facility] RBC Ql (U) moderate [facility] Specific gravity (U) [Rel density] 1.015 [facility] Transitional cells LM Ql (Urine sed) [facility] Urobilinogen (U) [Mass/Vol] 0.2 [facility] WBC LM.HPF (Urine sed) [#/Area] [facility] URINE CULTUREon 11-15-2018 Bacteria identified Cx Nom (U) SPECIMEN DESCRIPTION URINE CLEAN CATCH UA DIPSTICK NITRITE NEGATIVE * Result Note: LEUKOCYTE POSITIVE * CULTURE NO PATHOGENS ISOLATED * Result Note: Testing performed at [place] [address] * REPORT STATUS 11/17/2018 * Result Note: FINAL * Normal [facility] Comment on above: Performed By: #### A URNC #### [place] [address] POCT INFLUENZA, A Bon 2018 FLUAV Ag IA Ql (Nph) Negative Invalid Interpretation Code [facility] Work Phone: FLUBV Ag IA Ql (Nph) Negative Invalid Interpretation Code [facility] Work Phone: POCT RAPID STREP Aon 019 S. pyogenes Ag Ql (Throat) Negative Invalid Interpretation Code (+/-) [facility] Work Phone: Vital Signs Date Time Vital Sign Value Performing Clinician Facility 04-15-2023 16:53-0500 Diastolic blood pressure 57 mm[Hg] Kenneth Marti DO Work Phone: [facility] 04-15-2023 16:53-0500 Heart rate 93 /min Kenneth Marti DO Work Phone: [facility] 04-15-2023 16:53-0500 Respiratory rate 16 /min Kenneth Marti DO Work Phone: [facility] 04-15-2023 16:53-0500 SaO2% (BldA) [Mass fraction] 99 % Kenneth Marti DO Work Phone: [facility] 04-15-2023 16:53-0500 Systolic blood pressure 101 mm[Hg] Kenneth Marti DO Work Phone: [facility] 04-15-2023 12:55-0500 Body height 162.6 cm Kenneth Marti DO Work Phone: [facility] 04-15-2023 12:55-0500 Body mass index (BMI) [Ratio] 24.89 kg/m2 Kenneth Marti DO Work Phone: [facility] 04-15-2023 12:55-0500 Body temperature 99 [degF] Kenneth Marti DO Work Phone: [facility] 04-15-2023 12:55-0500 Body weight 65.77 kg Kenneth Marti DO Work Phone: [facility] 04-10-2021 16:42-0500 Body height 162.5 cm Kenneth Marti Other Phone: [facility] 04-10-2021 16:42-0500 Body temperature 97.88 [degF] Kenneth Marti Other Phone: [facility] 04-10-2021 16:42-0500 Diastolic blood pressure 76 mm[Hg] Kenneth Marti Other Phone: [facility] 04-10-2021 16:42-0500 Heart rate 83 /min Kenneth Marti Other Phone: [facility] 04-10-2021 16:42-0500 SaO2% (BldA) [Mass fraction] 99 % Kenneth Marti Other Phone: [facility] 04-10-2021 16:42-0500 Systolic blood pressure 109 mm[Hg] Kenneth Marti Other Phone: [facility] 01-23-2021 18:19-0400 Body height 162.5 cm Kenneth Marti Other Phone: [facility] 01-23-2021 18:19-0400 Body temperature 97.16 [degF] Kenneth Marti Other Phone: [facility] 11-15-2018 13:03-0400 BMI (Body Mass Index) 25.54 kg/m2 [facility] 11-15-2018 13:03-0400 Body Temperature 98.49 [degF] [facility] 11-15-2018 13:03-0400 Body weight 67.5 kg [facility] 11-15-2018 13:03-0400 BP Diastolic 76 mm[Hg] [facility] 11-15-2018 13:03-0400 BP Systolic 112 mm[Hg] [facility] 11-15-2018 13:03-0400 Height 162.6 cm [facility] 11-15-2018 13:03-0400 Pulse (Heart Rate) 80 /min [facility] 11-15-2018 13:03-0400 Pulse Oximetry 98 % [facility] 11-15-2018 13:03-0400 Respiratory Rate 16 /min [facility] 05-09-2018 17:22-0500 BP Diastolic 60 mm[Hg] [facility] Work Phone: 05-09-2018 17:22-0500 BP Systolic 94 mm[Hg] [facility] Work Phone: 05-09-2018 17:20-0500 BMI (Body Mass Index) 21.44 kg/m2 [facility] Work Phone: 05-09-2018 17:20-0500 Body Temperature 98.8 [degF] [facility] Work Phone: 05-09-2018 17:20-0500 Height 162.6 cm [facility] Work Phone: 05-09-2018 17:20-0500 Pulse (Heart Rate) 99 /min [facility] Work Phone: 05-09-2018 17:20-0500 Pulse Oximetry 97 % [facility] Work Phone: 05-09-2018 17:20-0500 Respiratory Rate 17 /min [facility] Work Phone: 05-09-2018 17:20-0500 Weight 56.65 kg [facility] Work Phone: Encounters Encounter Date Encounter Type Care Provider Facility Start: 06-17-2023 End: 06-17-2023 ambulatory [facility] Start: 04-15-2023 End: 04-15-2023 Emergency department patient visit [facility] Comment on above: Nausea vomiting and diarrhea (Primary Dx); Elevated bilirubin Start: 04-09-2023 End: 04-09-2023 ambulatory [facility] Start: 10-02-2022 End: 10-02-2022 ambulatory [facility] Start: 09-04-2022 End: 09-04-2022 ambulatory [facility] Start: 08-05-2022 End: 08-05-2022 ambulatory [facility] Start: 06-11-2022 End: 06-11-2022 ambulatory [facility] Start: 11-08-2021 Janine Reynoldsutzm ghulam CONFIGURATION MANAGEMENT MANAGER.EXPORT DOCUMENTS CLERK Work Phone: [facility] Comment on above: Refill Request Start: 10-21-2021 End: 10-21-2021 ambulatory Jess Garcia CONFIGURATION MANAGEMENT MANAGER.EXPORT DOCUMENTS CLERK Work Phone: Psychiatry Comment on above: NO SHOW (Primary Dx) Start: 10-21-2021 End: 10-21-2021 Telemedicine consultation with patient Jess Christian Alva CONFIGURATION MANAGEMENT MANAGER.EXPORT DOCUMENTS CLERK Work Phone: [facility] Start: 10-09-2021 Refill Alex parmar CONFIGURATION MANAGEMENT MANAGER.EXPORT DOCUMENTS CLERK Work Phone: [facility] Comment on above: Refill Request Start: 10-02-2021 Telephone encounter Regina noriega CONFIGURATION MANAGEMENT MANAGER.EXPORT DOCUMENTS CLERK Work Phone: [facility] [place] Comment on above: Results Start: 09-26-2021 Refill Jess neri CONFIGURATION MANAGEMENT MANAGER.EXPORT DOCUMENTS CLERK Work Phone: Psychiatry Comment on above: Refill Request Start: 09-24-2021 Telephone encounter Kenneth Schreiber Vanesa cantrell DO Work Phone: Family [facility] Comment on above: Opened In Error Start: 09-10-2021 Refill Alex parmar CONFIGURATION MANAGEMENT MANAGER.EXPORT DOCUMENTS CLERK Work Phone: Family [facility] Comment on above: Refill Request Start: 09-02-2021 End: 09-02-2021 Distance [facility] Jess Garcia CONFIGURATION MANAGEMENT MANAGER.EXPORT DOCUMENTS CLERK Work Phone: Psychiatry Comment on above: Bipolar 2 disorder ( HCC) (Primary Dx); PAULY (generalized anxiety disorder); Attention deficit disorder (ADD) without hyperactivity After visit summary Start: 08-19-2021 End: 08-19-2021 [facility] Alex Matthew CONFIGURATION MANAGEMENT MANAGER.EXPORT DOCUMENTS CLERK Work Phone: [facility] Comment on above: Attention deficit di sorder (ADD) without hyperactivity (Primary Dx); Bipolar affective disorder, remission status unspecified (HCC); Anxiety with depression Scheduling Start: 04-10-2021 End: 04-10-2021 Emergency department patient visit Nick Tanja [facility] Start: 03-19-2021 End: 03-23-2021 ambulatory LIZA LEE [facility] Start: 01-23-2021 End: 01-23-2021 Emergency department patient visit Nick Agrawal [facility] Start: 11-15-2018 End: 11-15-2018 Letter encounter Provider Pawan Bunch [facility] Start: 11-15-2018 End: 11-15-2018 Office outpatient new 30 minutes Niluis Mcfarland Work Phone: [facility] Comment on above: Dysuria (Primary Dx) ; UTI symptoms Start: 05-09-2018 Patient encounter procedure [facility] Kiki [facility] Start: 05-09-2018 End: 05-09-2018 Office outpatient new 20 minutes Marian Sheffield Work Phone: [facility] Comment on above: Cough (Primary Dx); Sore throat; Viral URI Start: 03-17-2018 Patient requested procedure Alex Reynoldsmary KUMAR Work Phone: [facility] Work Phone: Procedures Date Procedure Procedure Detail Performing Clinician Start: 04-15-2023 US RIGHT UPPER QUADRANT KENNETH MARTI Start: 04-15-2023 Us abdominal real ti me w/image limited Breann Borjas PA-C Work Phone: Start: 04-15-2023 EXTRA TUBES KENNETH GAR RISON Start: 04-15-2023 HEPATITIS PANEL, ACUTE KENNETH MARTI Start: 04-15-2023 Lipase [Enzymatic activity/volume] in Serum or Plasma KENENTH MARTI Start: 04-15-2023 RED TOP KENNETH GAR RISON Start: 04-15-2023 CBC W Auto Different ial panel - Blood KENNETH MARTI Start: 04-15-2023 Comprehensive metabo lic 2000 panel - Serum or Plasma KENNETH MARTI Start: 04-15-2023 EXTRA URINE WILLS TUBE J ORDAN MARTI Start: 04-15-2023 URINALYSIS MICROSCOP IC WITH REFLEX CULTURE KENNETH MARTI Start: 04-15-2023 URINALYSIS WITH REFL EX MICROSCOPIC AND CULTURE KENNETH ÍDAZRISON Start: 04-15-2023 SARS-COV-2 AND INFLU YOBANI A/B PCR KENNETH DÍAZRISON Start: 04-15-2023 EXTRA TUBES Breann ALAMO-C Work Phone: Start: 04-15-2023 GREEN TOP Breann Borjas PA-C Work Phone: Start: 04-15-2023 LIGHT BLUE TOP Adina Borjas PA-C Work Phone: Start: 04-15-2023 RED TOP Breann Borjas PA-C Work Phone: Start: 04-15-2023 End: 04-15-2023 Comprehensive metabolic panel Breann Borjas PA-C Work Phone: Start: 04-15-2023 Urinalysis complete W Reflex Culture panel - Urine Breann Borjas PA-C Work Phone: Start: 04-15-2023 Urnls dip stick/tabl et reagent auto microscopy Breann Borjas PA-C Work Phone: Start: 04-15-2023 Influenza virus A an d B and SARS-CoV-2 (COVID-19) identified in Respiratory specimen by NOMI with probe detection Breann Borjas PA-C Work Phone: Start: 11-15-2018 POCT URINALYSIS DIPS TICK NON AUTOMATED Ni Mcfarland Work Phone: Start: 05-09-2018 Throat culture Comment on above: Performed By: #### T HR #### Testing performed at [address] [address] Start: 05-09-2018 End: 05-09-2018 POCT INFLUENZA, A B Marian Sheffield Work Phone: Start: 05-09-2018 End: 05-09-2018 POCT RAPID STREP A Marian Sheffield Work Phone: Plan of Treatment Date Care Activity Detail Author Start: 2043 Zoster Vaccines (1 of 2) Zoste r Vaccines (1 of 2) [facility] Start: 08-11-2032 DTaP/Tdap/Td Vaccine s (11 - Td or Tdap) DTaP/Tdap/Td Vaccines (11 - Td or Tdap) [facility] Start: 01-02-2023 Influenza vaccination Influenza Vacc ine (#1) [facility] Start: 08-19-2022 ANNUAL PCP TEAM EMBEDDED ENGINEER EVGENY DISEASE VISIT ANNUAL PCP TEAM CHRONIC DISEASE VISIT [facility] Start: 01-02-2022 Influenza vaccination C [facility] Start: 03-22-2021 PAP TESTING PAP TESTING [facility] Start: 01-02-2019 Influenza vaccination O DE LA O [facility] Start: 11-15-2018 End: 11-16-2019 Bacteria identified Cx Nom (U) URINE CULTURE Microbiology Routine UTI symptoms Expected: 11/15/2018, Expires: 11/16/2019 [facility] Comment on above: Expected: 11/15/2018 , Expires: 11/16/2019 Start: 05-09-2018 End: 05-09-2019 CULTURE THROAT CULTURE THROAT Routine Sore throat Expected: 05/09/2018, Expires: 05/09/2019 [facility] Work Phone: Comment on above: Expected: 05/09/2018 , Expires: 05/09/2019 Start: 01-02-2018 Influenza vaccination INFLUENZA VACC INE (#1) [facility] Work Phone: Start: 12-01-2017 Urine microalbumin profile DTAP,TDAP,TD (7 - Tdap) [facility] Start: 2014 Screening for malign ant neoplasm of cervix [facility] Start: 2012 Third diphtheria, te tanus and acellular pertussis (DTaP) vaccination TDAP (ADULT) [facility] Work Phone: Start: 2011 GONORRHEA SCREEN GONORRHEA SCREEN Oh [facility] Work Phone: Start: 2011 Hepatitis C screening Hepatitis C Sc reening [facility] Start: 2011 SPIROMETRY SPIROMETRY [facility] Start: 2011 [facility] Start: 2009 Screening for Chlamy mariusz trachomatis CHLAMYDIA SCREEN [facility] Work Phone: Start: 2008 Vaccination for angie n papillomavirus HPV VACCINE ADOL (1 - Female 3-dose series) [facility] Start: 2006 HIV screening HIV SCREENING DISCUSSION [facility] Work Phone: Start: 2004 Vaccination for angie n papillomavirus HPV VACCINE ADOL (1 - Female 3-dose series) [facility] Work Phone: Start: 1999 PNEUMOCOCCAL (1 - PCV) PNEUMOCOCCAL (1 - PCV) [facility] Start: 08-24-1998 Varicella vaccination Varicell a Vaccines (1 of 2 - 2-dose childhood series) [facility] Start: 1998 COVID-19 VACCINE (#1) COVID-19 VACCI NE (#1) [facility] Start: 1998 COVID-19 VACCINE (1) COVID-19 VACCIN E (1) [facility] Start: 1993 COVID-19 VACCINE (#1) COVID-19 VACCI NE (#1) [facility] Start: 1993 GONORRHEA SCREEN GONORRHEA SCREEN OS [facility] Start: 1993 HIV screening HIV Screening [facility] Start: 1993 Lipid panel Lipid Panel [facility] Start: 1993 Yearly Adult Physical Yearly Adult P hysical [facility] End: 04-15-2023 Acute hepatitis 2000 panel - Serum [facility] Work Phone: Comment on above: STAT (Lab) for 1 Occ urrences starting 04/15/2023 until 04/15/2023 End: 04-15-2023 Extra Urine Wills Tube Extra Urine Wills Tube Lab Timed Once for 1 Occurrences starting 04/15/2023 until 04/15/2023 [facility] Work Phone: Comment on above: Once for 1 Occurrenc es starting 04/15/2023 until 04/15/2023 End: 04-15-2023 Urinalysis complete W Reflex Culture panel - Urine [facility] Service Area Work Phone: Comment on above: STAT (Lab) for 1 Occ urrences starting 04/15/2023 until 04/15/2023 [facility] Immunizations Immunization Date Immunization Notes Care Provider Fa evan 06-03-2013 human papilloma viru s vaccine, quadrivalent Alex Mitchel CONFIGURATION MANAGEMENT MANAGER.[facility] Work Phone: [facility] Work Phone: 02-25-2012 human papilloma viru s vaccine, bivalent Alex Mitchel CONFIGURATION MANAGEMENT MANAGER.[facility] Work Phone: [facility] Work Phone: 12-05-2011 human papilloma viru s vaccine, bivalent Alex Mitchel CONFIGURATION MANAGEMENT MANAGER.[facility] Work Phone: [facility] Work Phone: 12-05-2011 meningococcal polysaccharide vaccine (MPSV4) Alex Mitchel CONFIGURATION MANAGEMENT MANAGER.[facility] Work Phone: [facility] Work Phone: 12-02-2007 diphtheria, tetanus toxoids and acellular pertussis vaccine Alex Mitchel CONFIGURATION MANAGEMENT MANAGER.[employer] Work Phone: [facility] Work Phone: 07-27-1998 diphtheria, tetanus toxoids and acellular pertussis vaccine Alex Mitchel CONFIGURATION MANAGEMENT MANAGER.[employer] Work Phone: [facility] Work Phone: 07-27-1998 measles, mumps and rubella virus vaccine Alex Mitchel CONFIGURATION MANAGEMENT MANAGER.[facility] Work Phone: [facility] Work Phone: 07-27-1998 trivalent poliovirus vaccine, live, oral Alex Mitchel CONFIGURATION MANAGEMENT MANAGER.[facility] Work Phone: [facility] Work Phone: 08-24-1996 diphtheria, tetanus toxoids and acellular pertussis vaccine Alex Mitchel CONFIGURATION MANAGEMENT MANAGER.[facility] Work Phone: [facility] Work Phone: 08-24-1996 measles, mumps and rubella virus vaccine Alex Micthel CONFIGURATION MANAGEMENT MANAGER.[facility] Work Phone: [facility] Work Phone: 06-11-1994 hepatitis B vaccine, pediatric or pediatric/adolescent dosage Alex Mitchel CONFIGURATION MANAGEMENT MANAGER.[facility] Work Phone: [facility] Work Phone: 03-12-1994 diphtheria, tetanus toxoids and pertussis vaccine Alex Mitchel CONFIGURATION MANAGEMENT MANAGER.[facility] Work Phone: [facility] Work Phone: 03-12-1994 haemophilus influenz ae type b vaccine, conjugate unspecified formulation Alex Mitchel CONFIGURATION MANAGEMENT MANAGER.[facility] Work Phone: [facility] Work Phone: 03-12-1994 trivalent poliovirus vaccine, live, oral Alex Mitchel CONFIGURATION MANAGEMENT MANAGER.[facility] Work Phone: [facility] Work Phone: 01-01-1994 diphtheria, tetanus toxoids and pertussis vaccine Alex Mitchel CONFIGURATION MANAGEMENT MANAGER.[facility] Work Phone: [facility] Work Phone: 01-01-1994 haemophilus influenz ae type b vaccine, conjugate unspecified formulation Alex Mitchel CONFIGURATION MANAGEMENT MANAGER.[facility] Work Phone: [facility] Work Phone: 01-01-1994 trivalent poliovirus vaccine, live, oral Alex Mitchel CONFIGURATION MANAGEMENT MANAGER.[facility] Work Phone: [facility] Work Phone: 1993 diphtheria, tetanus toxoids and pertussis vaccine [facility] CONFIGURATION MANAGEMENT MANAGER.[facility] Work Phone: [facility] Work Phone: 1993 haemophilus influenz ae type b vaccine, conjugate unspecified formulation Alexbroderick Matthew CONFIGURATION MANAGEMENT MANAGER.[employer] Work Phone: [facility] Work Phone: 1993 trivalent poliovirus vaccine, live, oral Alex Mitchel CONFIGURATION MANAGEMENT MANAGER.[employer] Work Phone: [facility] Work Phone: 1993 hepatitis B vaccine, pediatric or pediatric/adolescent dosage lAex Matthew CONFIGURATION MANAGEMENT MANAGER.[facility] Work Phone: [facility] Work Phone: 1993 hepatitis B vaccine, pediatric or pediatric/adolescent dosage Alex Matthew CONFIGURATION MANAGEMENT MANAGER.[facility] Work Phone: [facility] Work Phone: Payers Date Payer Category Payer Unknown 2023 Unknown [id number] 2020 Unknown [id number] 2020 Unknown MMO MMO [employer] [id number] 2020-Present [phone] [address] [place] [address] PPO [id number] 2019 Medicaid [facility] MEDICA[facility] [id number] 2019-Present [phone] [address] [place] [address] Medicaid [id number] 2018 Unknown [employer]EV[employer]ANT[employer] Jani PPO POS xxxxxxxxxxxx 2018-Present xxxxxxxxxxxx [id number] 1993 Unknown [id number] 1993 Unknown [id number] 1993 Unknown [id number] 1993 Unknown [id number] 1993 Unknown [id number] 1993 Unknown [id number] 3 1993 Unknown [id number] 3 1993 Unknown [id number] 3 Social History Date Type Detail Facility Start: 05-09-2018 End: 04-09-2023 Tobacco smoking status NHIS Never smoker [facility] Start: 02-14-2018 [facility] Work Phone: Start: 1993 Sex Assigned At Not on file [facility] Work Phone: Tobacco smoking consumption unknown [facility] Start: 10-28-2011 End: 04-09-2023 Tobacco use and exposure Smokeless tobacco non-user [facility] Start: 06-14-2021 End: 09-02-2021 Alcohol intake Current non-drinker of alcohol (finding) [facility] Start: 06-14-2021 History SDOH Alcohol Frequency 1 [facility] Start: 06-14-2021 History SDOH Alcohol Std Drinks 98 [facility] Start: 06-14-2021 History SDOH Social Connections Phone 4 [facility] Start: 06-14-2021 History SDOH Social Connections Get Together 2 [facility] Start: 06-14-2021 History SDOH Social Connections Yazdanism 3 [facility] Start: 06-14-2021 History SDOH Social Connections Living 8 [facility] Start: 06-14-2021 History SDOH Stress 5 [facility] Start: 08-09-2021 End: 04-15-2023 Exposure to SARS-CoV-2 (event) Not sure [facility] Start: 04-09-2023 History of Social function [facility] Work Phone: Start: 04-09-2023 Tobacco use panel [facility] Work Phone: Start: 1995 Sex Assigned At Female [facility] Start: 04-09-2023 Gender identity Identifies as female gender (finding) [facility] Work Phone: Start: 04-09-2023 Sexual orientation Heterosexual (finding) [facility] Work Phone: Clinical Notes 03-09-2018 to 04-15-2023 Discharge InstructionsBreann Borjas PA-C - 04/15/2023 12:41 PM ESTBreann Borjas PA-C - 04/15/2023 12:41 PM ESTConsultation (Routine) - Authorized Note Date & Type Note Facility 04-15-2023 Hospital Discharge instructions Breann Borjas PA-C - 04/15/2023 3:08 PM EST Your bilirubin was slightly elevated. This is likely secondary to dehydration but it is recommended that you follow up with your family physician to have this re-evaluated in 2-3 days to ensure that levels are not increasing; if so further workup will be needed documented in this encounter [facility] Work Phone: 04-15-2023 Emergency department Note Patient is a 27-year-old female who presents to the emergency department with a chief complaint of nausea, vomiting and diarrhea. She also states that she has bodyaches and developed a fever yesterday. She states that she has had numerous episodes of nausea vomiting and diarrhea. She states that a family member had similar symptoms. She denies any abdominal pain. No chest pain or shortness of breath. No alleviating factors. She reports that anytime she eats or drinks she vomits. Once again she continues to deny any abdominal pain. Review of Systems Constitutional: Negative for chills and fever. HENT: Negative for ear pain and sore throat. Eyes: Negative for pain and visual disturbance. Respiratory: Negative for cough and shortness of breath. Cardiovascular: Negative for chest pain and palpitations. Gastrointestinal: Positive for diarrhea, nausea and vomiting. Negative for abdominal pain. Genitourinary: Negative for dysuria and hematuria. Musculoskeletal: Negative for arthralgias and back pain. Skin: Negative for color change and rash. Neurological: Negative for seizures and syncope. All other systems reviewed and are negative. Physical Exam Vitals and nursing note reviewed. Constitutional: General: She is not in acute distress. Appearance: Normal appearance. She is well-developed. HENT: Head: Normocephalic and atraumatic. Eyes: Extraocular Movements: Extraocular movements intact. Conjunctiva/sclera: Conjunctivae normal. Pupils: Pupils are equal, round, and reactive to light. Cardiovascular: Rate and Rhythm: Normal rate and regular rhythm. Heart sounds: No murmur heard. Pulmonary: Effort: Pulmonary effort is normal. No respiratory distress. Breath sounds: Normal breath sounds. Abdominal: General: There is no distension. Palpations: Abdomen is soft. There is no mass. Tenderness: There is no abdominal tenderness. There is no guarding or rebound. Hernia: No hernia is present. Musculoskeletal: General: No swelling. Cervical back: Normal range of motion and neck supple. No rigidity. Skin: General: Skin is warm and dry. Capillary Refill: Capillary refill takes less than 2 seconds. Coloration: Skin is not jaundiced or pale. Findings: No bruising or erythema. Neurological: General: No focal deficit present. Mental Status: She is alert and oriented to person, place, and time. Psychiatric: Mood and Affect: Mood normal. Labs Reviewed CBC WITH AUTO DIFFERENTIAL - Abnormal Result Value WBC 6.8 nRBC 0.0 RBC 4.89 Hemoglobin 14.6 Hematocrit 42.8 MCV 88 MCH 29.9 MCHC 34.1 RDW 12.5 Platelets 280 Neutrophils % 87.4 Immature Granulocytes %, Automated 0.3 Lymphocytes % 5.4 Monocytes % 6.3 Eosinophils % 0.3 Basophils % 0.3 Neutrophils Absolute 5.93 Immature Granulocytes Absolute, Automated 0.02 Lymphocytes Absolute 0.37 (*) Monocytes Absolute 0.43 Eosinophils Absolute 0.02 Basophils Absolute 0.02 COMPREHENSIVE METABOLIC PANEL - Abnormal Glucose 86 Sodium 138 Potassium 3.8 Chloride 102 Bicarbonate 25 Anion Gap 15 Urea Nitrogen 13 Creatinine 0.72 eGFR >90 Calcium 9.4 Albumin 4.7 Alkaline Phosphatase 56 Total Protein 7.3 AST 13 Bilirubin, Total 2.8 (*) ALT 10 URINALYSIS WITH REFLEX MICROSCOPIC AND CULTURE - Abnormal Color, Urine Yellow Appearance, Urine Hazy (*) Specific [place], Urine 1.034 pH, Urine 5.0 Protein, Urine 30 (1+) (*) Glucose, Urine NEGATIVE Blood, Urine NEGATIVE Ketones, Urine 20 (1+) (*) Bilirubin, Urine NEGATIVE Urobilinogen, Urine <2.0 Nitrite, Urine NEGATIVE Leukocyte Esterase, Urine NEGATIVE SARS-COV-2 AND INFLUENZA A/B PCR - Normal Flu A Result Not Detected Flu B Result Not Detected Coronavirus 2018, PCR Not Detected Narrative: This assay has received FDA Emergency Use Authorization (EUA) and is only authorized for the duration of time that circumstances exist to justify the authorization of the emergency use of in vitro diagnostic tests for the detection of SARS-CoV-2 virus and/or diagnosis of COVID-19 infection under section 564(b)(1) of the Act, 21 U.S.C. 360bbb-3(b)(1). Testing for SARS-CoV-2 is only recommended for patients who meet current clinical and/or epidemiological criteria as defined by federal, state, or local public health directives. This assay is an in vitro diagnostic nucleic acid amplification test for the qualitative detection of SARS-CoV-2, Influenza A, and Influenza B from nasopharyngeal specimens and has been validated for use at [facility]. Negative results do not preclude COVID-19 infections or Influenza A/B infections, and should not be used as the sole basis for diagnosis, treatment, or other management decisions. If Influenza A/B and RSV PCR results are negative, testing for Parainfluenza virus, Adenovirus and Metapneumovirus is routinely performed for [facility] pediatric oncology and intensive care inpatients, and is available on other patients by placing an add-on request. LIPASE - Normal Lipase 11 Narrative: Venipuncture immediately after or during the administration of Metamizole may lead to falsely low results. Testing should be performed immediately prior to Metamizole dosing. GREEN TOP Extra Tube Hold for add-ons. GREEN TOP Extra Tube Hold for add-ons. URINALYSIS WITH REFLEX MICROSCOPIC AND CULTURE Narrative: The following orders were created for panel order Urinalysis with Reflex Microscopic and Culture. Procedure Abnormality Status --------- ------ Urinalysis with Reflex Mi...[[id number]] Abnormal Final result Extra Urine Wills Tube[[id number]] Please view results for these tests on the individual orders. EXTRA URINE WILLS TUBE HEPATITIS PANEL, ACUTE URINALYSIS MICROSCOPIC WITH REFLEX CULTURE WBC, Urine 1-5 RBC, Urine NONE Squamous Epithelial Cells, Urine 10-25 (FEW) Mucus, Urine 1+ US right upper quadrant Final Result Unremarkable ultrasound of the right upper quadrant. No cholelithiasis, gallbladder wall thickening, or biliary dilatation is appreciated. Signed by Dhiraj Anders MD Procedures Medical Decision Making Patient is a 27-year-old female who presents to the emergency department with a chief complaint of nausea and vomiting and diarrhea along with additional flulike symptoms. Patient did have a similar ill contact in a family member. She denied any abdominal pain. Her abdomen was soft and nontender on initial and repeat exam. Patient's laboratory studies are overall unremarkable besides a elevated bilirubin of 2.8. I did attempt to review prior laboratory studies and the last bilirubin I was able to find in October 2022 was 0.7. RUQ US and lipase ordered given this finding both of which are unremarkable. A hepatitis panel was also added which will not result today. Patient was instructed to follow-up with her family physician in the next 2 to 3 days to have repeat lab work to ensure that this level is not increasing. Patient was given IV fluids and antinausea medicine. She was originally tachycardic upon arrival and her heart rate has improved. Current heart rate is 96 bpm. She will be discharged home with recommended follow-up with primary care physician return for any new or worsening symptoms. Differential diagnosis includes but not limited to viral gastroenteritis, influenza, COVID, hepatitis Amount and/or Complexity of Data Reviewed External Data Reviewed: labs. Labs: ordered. Decision-making details documented in ED Course. Radiology: ordered. Decision-making details documented in ED Course. Risk Prescription drug management. Diagnoses as of 04/15/231645 Nausea vomiting and diarrhea Elevated bilirubin Breann Borjas PA-C 04/15/231646 documented in this encounter [facility] Work Phone: 04-15-2023 Physician Emergency department Note Patient is a 27-year-old female who presents to the emergency department with a chief complaint of nausea, vomiting and diarrhea. She also states that she has bodyaches and developed a fever yesterday. She states that she has had numerous episodes of nausea vomiting and diarrhea. She states that a family member had similar symptoms. She denies any abdominal pain. No chest pain or shortness of breath. No alleviating factors. She reports that anytime she eats or drinks she vomits. Once again she continues to deny any abdominal pain. Review of Systems Constitutional: Negative for chills and fever. HENT: Negative for ear pain and sore throat. Eyes: Negative for pain and visual disturbance. Respiratory: Negative for cough and shortness of breath. Cardiovascular: Negative for chest pain and palpitations. Gastrointestinal: Positive for diarrhea, nausea and vomiting. Negative for abdominal pain. Genitourinary: Negative for dysuria and hematuria. Musculoskeletal: Negative for arthralgias and back pain. Skin: Negative for color change and rash. Neurological: Negative for seizures and syncope. All other systems reviewed and are negative. Physical Exam Vitals and nursing note reviewed. Constitutional: General: She is not in acute distress. Appearance: Normal appearance. She is well-developed. HENT: Head: Normocephalic and atraumatic. Eyes: Extraocular Movements: Extraocular movements intact. Conjunctiva/sclera: Conjunctivae normal. Pupils: Pupils are equal, round, and reactive to light. Cardiovascular: Rate and Rhythm: Normal rate and regular rhythm. Heart sounds: No murmur heard. Pulmonary: Effort: Pulmonary effort is normal. No respiratory distress. Breath sounds: Normal breath sounds. Abdominal: General: There is no distension. Palpations: Abdomen is soft. There is no mass. Tenderness: There is no abdominal tenderness. There is no guarding or rebound. Hernia: No hernia is present. Musculoskeletal: General: No swelling. Cervical back: Normal range of motion and neck supple. No rigidity. Skin: General: Skin is warm and dry. Capillary Refill: Capillary refill takes less than 2 seconds. Coloration: Skin is not jaundiced or pale. Findings: No bruising or erythema. Neurological: General: No focal deficit present. Mental Status: She is alert and oriented to person, place, and time. Psychiatric: Mood and Affect: Mood normal. Labs Reviewed CBC WITH AUTO DIFFERENTIAL - Abnormal Result Value WBC 6.8 nRBC 0.0 RBC 4.89 Hemoglobin 14.6 Hematocrit 42.8 MCV 88 MCH 29.9 MCHC 34.1 RDW 12.5 Platelets 280 Neutrophils % 87.4 Immature Granulocytes %, Automated 0.3 Lymphocytes % 5.4 Monocytes % 6.3 Eosinophils % 0.3 Basophils % 0.3 Neutrophils Absolute 5.93 Immature Granulocytes Absolute, Automated 0.02 Lymphocytes Absolute 0.37 (*) Monocytes Absolute 0.43 Eosinophils Absolute 0.02 Basophils Absolute 0.02 COMPREHENSIVE METABOLIC PANEL - Abnormal Glucose 86 Sodium 138 Potassium 3.8 Chloride 102 Bicarbonate 25 Anion Gap 15 Urea Nitrogen 13 Creatinine 0.72 eGFR >90 Calcium 9.4 Albumin 4.7 Alkaline Phosphatase 56 Total Protein 7.3 AST 13 Bilirubin, Total 2.8 (*) ALT 10 URINALYSIS WITH REFLEX MICROSCOPIC AND CULTURE - Abnormal Color, Urine Yellow Appearance, Urine Hazy (*) Specific [place], Urine 1.034 pH, Urine 5.0 Protein, Urine 30 (1+) (*) Glucose, Urine NEGATIVE Blood, Urine NEGATIVE Ketones, Urine 20 (1+) (*) Bilirubin, Urine NEGATIVE Urobilinogen, Urine <2.0 Nitrite, Urine NEGATIVE Leukocyte Esterase, Urine NEGATIVE SARS-COV-2 AND INFLUENZA A/B PCR - Normal Flu A Result Not Detected Flu B Result Not Detected Coronavirus 2018, PCR Not Detected Narrative: This assay has received FDA Emergency Use Authorization (EUA) and is only authorized for the duration of time that circumstances exist to justify the authorization of the emergency use of in vitro diagnostic tests for the detection of SARS-CoV-2 virus and/or diagnosis of COVID-19 infection under section 564(b)(1) of the Act, 21 U.S.C. 360bbb-3(b)(1). Testing for SARS-CoV-2 is only recommended for patients who meet current clinical and/or epidemiological criteria as defined by federal, state, or local public health directives. This assay is an in vitro diagnostic nucleic acid amplification test for the qualitative detection of SARS-CoV-2, Influenza A, and Influenza B from nasopharyngeal specimens and has been validated for use at [facility]. Negative results do not preclude COVID-19 infections or Influenza A/B infections, and should not be used as the sole basis for diagnosis, treatment, or other management decisions. If Influenza A/B and RSV PCR results are negative, testing for Parainfluenza virus, Adenovirus and Metapneumovirus is routinely performed for [facility] pediatric oncology and intensive care inpatients, and is available on other patients by placing an add-on request. LIPASE - Normal Lipase 11 Narrative: Venipuncture immediately after or during the administration of Metamizole may lead to falsely low results. Testing should be performed immediately prior to Metamizole dosing. GREEN TOP Extra Tube Hold for add-ons. GREEN TOP Extra Tube Hold for add-ons. URINALYSIS WITH REFLEX MICROSCOPIC AND CULTURE Narrative: The following orders were created for panel order Urinalysis with Reflex Microscopic and Culture. Procedure Abnormality Status --------- ------ Urinalysis with Reflex Mi...[[id number]] Abnormal Final result Extra Urine Wills Tube[[id number]] Please view results for these tests on the individual orders. EXTRA URINE WILLS TUBE HEPATITIS PANEL, ACUTE URINALYSIS MICROSCOPIC WITH REFLEX CULTURE WBC, Urine 1-5 RBC, Urine NONE Squamous Epithelial Cells, Urine 10-25 (FEW) Mucus, Urine 1+ US right upper quadrant Final Result Unremarkable ultrasound of the right upper quadrant. No cholelithiasis, gallbladder wall thickening, or biliary dilatation is appreciated. Signed by Dhiraj Anders MD Procedures Medical Decision Making Patient is a 27-year-old female who presents to the emergency department with a chief complaint of nausea and vomiting and diarrhea along with additional flulike symptoms. Patient did have a similar ill contact in a family member. She denied any abdominal pain. Her abdomen was soft and nontender on initial and repeat exam. Patient's laboratory studies are overall unremarkable besides a elevated bilirubin of 2.8. I did attempt to review prior laboratory studies and the last bilirubin I was able to find in October 2022 was 0.7. RUQ US and lipase ordered given this finding both of which are unremarkable. A hepatitis panel was also added which will not result today. Patient was instructed to follow-up with her family physician in the next 2 to 3 days to have repeat lab work to ensure that this level is not increasing. Patient was given IV fluids and antinausea medicine. She was originally tachycardic upon arrival and her heart rate has improved. Current heart rate is 96 bpm. She will be discharged home with recommended follow-up with primary care physician return for any new or worsening symptoms. Differential diagnosis includes but not limited to viral gastroenteritis, influenza, COVID, hepatitis Amount and/or Complexity of Data Reviewed External Data Reviewed: labs. Labs: ordered. Decision-making details documented in ED Course. Radiology: ordered. Decision-making details documented in ED Course. Risk Prescription drug management. Diagnoses as of 04/15/23 1646 Nausea vomiting and diarrhea Elevated bilirubin Breann Borjas PA-C 04/15/23 1647 [facility] Work Phone: 04-15-2023 Reason for referr al (narrative) Specialty Diagnoses / Procedures Referred By Lolis solares Referred To Contact Family Medicine / Primary Care Breann Borjas PA-C [facility] [place] [address] Referral ID Status Reason Start Date Expiration Date Visits Requested Visits Authorized [id number] Authorized Specialty Services Required 3 04/14/2024 1 1 [facility] Work Phone: [phone] 724-803508-08-2022 NoteHNO ID: [id number] Author: Jess Garcia APRN.[employer] CLERK Service: ? Author Type: Nurse Practitioner Type: Progress Notes Filed: 12/09/2021 10:48 AM Note Text: PSYC FOLLOW UP - PSYCHIATRIC PROGRESS NOTE DIAGNOSIS: Bipolar 2 disorder Generalized Anxiety Disorder ADD Medical marijuana use GAF: -70-61 Some mild symptoms or some difficulty in social, occupational, or school functioning, but generally functioning pretty well. TREATMENT PLAN: Discontinue Prozac, Lamictal, and and Vyvannse as patient weaned herself off the medications in October of 2021. Patient has decided to use medical marijuana to manage her psychiatric symptoms. Risks related to marijuana use and mental health was reviewed in detail with the patient. Follow up as needed. CC: Follow up regarding mood and anxiety With the patient consent, visit was performed virtually. HPI: Jordyn Andrea is a 26 year old Female with a history of Bipolar Disorder, PAULY, and ADD presenting today for follow-up. Date of last visit: 09/02/2021 Plan from last visit: 1. Increase Prozac to address her feelings of anxiety. 2. Increase Lamictal to help with her bipolar symptoms. 3. Utilize hydroxyzine as needed for increased episodes of anxiety. 4. Continue Vyvanse at the same dose. 5. Schedule an appointment with primary care provider to discuss stomach discomfort and nausea. Today Jordyn shares that a lot has changed with her life. She took a break from school. 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 She is very excited about this new work position. She has gone on family vacation and enjoyed it. Medication kuo she shares that she weaned herself off her psychiatric medications. She has recently started to use medical marijuana and it has helped her symptoms significantly. I feel like my mind has a lot of clarity and I can think straight . She does struggle with high and lows still. Has been using other coping skills such as journaling. Also has removed toxic people from around her and surrounded herself with supportive people. She last took her psychiatric medication October 2021 and started medical marijuana. She has been seeing a medical marijuana provider but unsure if they are specialized in psychiatry. Interval Progress: Improved Risks and benefits of the medication, including any black box warnings, were discussed with the patient. Social History: No change PATIENT DATA: Generalized Anxiety Disorder Scale (PAULY-7) PAULY - 7 SCORES 09/02/2021 12/09/2021 PAULY-7 Score 13 21 (0-4) minimal anxiety, (5-9) mild anxiety, (10-14) moderate anxiety, (15-21) severe anxiety Patient Health Questionnaire (PHQ-9) PHQ-9 08/19/2021 09/02/2021 12/09/2021 Score 21 15 11 (0-4) minimal depression, (5-9) mild depression, (10-14) moderate depression, (15-19) moderately severe depression, (20-27) severe depression ROS: General: Negative for fever, malaise, unintentional weight loss HEENT: Negative for recent changes in vision or hearing, no nasal drainage Respiratory: Negative for cough, wheezing or SOB Cardiovascular: Negative for chest pain GI: Negative for nausea, vomiting, change in bowel habits MUSCULOSKELETAL: Negative for acute back or joint pain SKIN: Negative for rash NEURO: Negative for headaches, seizures, focal neurological deficits All other systems negative. VITAL SIGNS: None obtained due to virtual visit. BP Temp Pulse Resp SpO2 MENTAL STATUS EXAMINATION: Appearance: Appropriately groomed, appears stated age Behavior: Appropriately engaged Psychomotor: No psychomotor agitation Cognition Level of Consciousness: Awake and alert. No fluctuation in wakefulness. Orientation: Grossly oriented Memory: Intact Attention/Concentration: Good Fund of Knowledge: Able to demonstrate an awareness of current events. Mood: Euthymic Affect: Congruent to mood Speech/Language: Appropriate tone, prosody, andi, phonetics, and syntax Thought Form: Goal-directed. No loosening of associations. Thought Content: No delusions noted or endorsed. Perceptual Disturbances: Did not appear to respond to auditory stimuli. Safety: Suicidal Ideations: No suicidal ideation, intent or plan. Homicidal Ideations: No homicidal ideation, intent or plan. Insight: Appropriate Judgment: Appropriate I spent a total of 28 minutes on the date of the service which included preparing to see the patient, [id number] patient care, completing clinical documentation, and counseling and educating the patient/family/caregiver, ordering medications/labs and communicating with other health care providers. Jess Garcia, [place].EXPORT DOCUMENTS CLERK December 09, 2021 10:20 AM This note was partially generated using [employer] voice recognition system. Note was reviewed for accuracy. There may be minor misspellings or grammar miscues with [employer] voice recognition.[facility]07-08-2022 Miscellaneous Notes* Telephone Encounter - Barrera Pascual LPN - 11/08/2021 10:40 AM EDT Patient has been identified by name and date of : Yes Pending Prescriptions Disp Refills FLUOXETINE 20 MG CAPSULE 30 capsule 1 Sig: Take 1 capsule by mouth once daily. Take with 40 mg dose. SHUKRI: No RX INSTRUCTIONS: Patient aware RX will be sent to pharmacy. No need to notify patient. Follow up 12/09/2021. Barrera Pascual LPN documented [facility] Miscellaneous Notes* Telephone Encounter - Hilary Wheat Ma - 11/08/2021 10:32 AM EDT Pending Prescriptions Disp Refills FLUOXETINE 40 MG CAPSULE 30 capsule 1 Sig: Take 1 capsule by mouth once daily. SHUKRI: No ALVARADO 08/19/2021 NOV not scheduled at this time Hilary Wheat Ma documented in this encounterGreen [facility]06-20-2022 NoteHNO ID: [id number] Author: Jess Garcia APRN.LAUREN Service: ? Author Type: Nurse Practitioner Type: Progress Notes Filed: 10/21/2021 11:23 AM Note Text: Patient did not log in for her virtual visit with the provider this morning. She did not answer her phone when attempt was made to reach her.[facility]06-20-2022 History of Present illness Narrative* Jess Garcia APRN.CNP - 10/21/2021 11:22 AM EDT Patient did not log in for her virtual visit with the provider this morning. She did not answer her phone when attempt was made to reach her. documented in this encounterGreen [facility]06-08-2022 Miscellaneous Notes* Telephone Encounter - Michelle Flores LPN - 10/09/2021 12:51 PM EDT Patient phones requesting refills as follows: Pending Prescriptions Disp Refills FLUOXETINE 40 MG CAPSULE 30 capsule 1 Sig: TAKE 1 CAPSULE BY MOUTH ONCE DAILY SHUKRI: Yes ALVARADO-08/19/21 Labs-03/19/21 NOV-none Please review and advise. Michelle Flores LPN documented in this encounterGreen [facility] Hospital06-01-2022 Miscellaneous Notes* Telephone Encounter - Yumi Cardoza LPN - 10/02/2021 6:59 PM EDT Gave information provided. Pt voices understanding. * Telephone Encounter - Yumi Cardoza LPN - 10/02/2021 6:46 PM EDT Line busy . Will need to try back. * Telephone Encounter - Regina Perez APRN.LAUREN - 10/02/2021 6:43 PM EDT Please call patient and let her know that I got her routine blood work results from [facility]. No concerns at all. Continue current medications. Thank you, Regina Perez APRN.EXPORT DOCUMENTS CLERK documented in this encounterGreen Cross Hospital2022 Miscellaneous Notes* Telephone Encounter - Leatha Renee - 09/26/2021 11:53 AM EDT Refill request denied. Records indicate that a 1 month supply was sent on 09/02/21 with 1 refill ordered. documented in this encounterGreen Cross Hospital05-25-2022 Miscellaneous Notes* Telephone Encounter - Arelis Mejia MA - 09/25/2021 10:17 AM EDT Patient notified papers haven't been received. Notified via [employer] message to send another messageif necessary. Arelis Mejia MA * Telephone Encounter - Arelis Mejia MA - 09/24/2021 2:50 PM EDT Medication refill addressed in refill encounter 09/24/21. documented in this encounterGreen Cross Hospital05-24-2022 Miscellaneous Notes* Telephone Encounter - Marlene Holbrook - 09/24/2021 1:21 PM EDT Opened in error, patient medication already refilled documented in this encounterGreen Cross Hospital05-10-2022 Miscellaneous Notes* Telephone Encounter - Danielle Beebe LPN - 09/10/2021 12:56 PM EDT Patient has been identified by name and date of : Yes Patient phones for refill(s): Pending Prescriptions Disp Refills FLUOXETINE 40 MG CAPSULE 30 capsule 1 Sig: TAKE 1 CAPSULE BY MOUTH ONCE DAILY SHUKRI: Yes Date of last office visit in primary care: 08/19/21 Last 2 Encounter Wt Readings: Date: Wt: 10/19/2019 61.2 kg (135 lb) 03/17/2018 53.5 kg (118 lb) Previous labs/tests for medication: Not applicable Please advise. Thank you. Danielle Beebe LPN documented in this encounterGreen Cross Hospital05-02-2022 NoteHNO ID: [id number] Author: Jess Garcia APRN.EXPORT DOCUMENTS CLERK Service: ? Author Type: Nurse Practitioner Type: Progress Notes Filed: 09/02/2021 10:01 AM Note Text: PSYC NEW - PSYCHIATRIC ASSESSMENT Patient was seen for an initial evaluation. With the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 Cancer Maternal Grandfather - Multiple Sclerosis Paternal Grandmother - Hypertension Maternal Grandmother Social History Tobacco Use - Smoking status: Never Smoker - Smokeless tobacco: Never Used Substance Use Topics - Alcohol use: No - Drug use: No Current Outpatient Medications Medication Sig - FLUoxetine (PROZAC) 20 mg capsule Take 1 capsule by mouth once daily. - buPROPion XL (WELLBUTRIN XL) 150 mg 24 hr tablet Take 1 tablet by mouth once daily. - QUEtiapine (SEROQUEL) 25 mg tablet Take 1 tablet by mouth daily at bedtime. - Icyscozf-Xz-Qvp-Fe-FA ( VITAMIN) tab Take 1 tablet by mouth. No current facility-administered medications for this visit. ALLERGIES No Known Allergies REVIEW OF SYSTEMS: All other ROS: negative As noted in HPI PHYSICAL EXAMINATION: VIDEO EXAM: (if completed, performed via video enabled technology) GENERAL: alert and appropriate, in no distress, well-hydrated, well nourished and happy, smiling, interactive HEAD: normocephalic, no abnormality or lesion noted ASSESSMENT: (F98.8) Attention deficit disorder (ADD) without hyperactivity (primary encounter diagnosis) PLAN: Begin Concerta, follow up in 1 month. If cost is too high, will likely change to Vyvanse. PDMP website checked and validated. All prescriptions have been APPROPRIATELY filled. No suspicious activity was identified. 03/21/2021 by Alex Matthew CNP. Alex Matthew APRN.[facility] History of Past illness Narrative* Problem Noted Date Resolved Date Mild intermittent asthma without complication 03/09/2018 Lupus 09/15/2012 10/11/2012 documented as of this encounter (statuses as of 08/19/2021) [facility] of Past illness Narrative* Problem Noted Date Resolved Date Mild intermittent asthma without complication 03/09/2018 Lupus 09/15/2012 10/11/2012 documented as of this encounter (statuses as of 09/02/2021) [facility] of [facility] Narrative* Problem Noted Date Resolved Date Mild intermittent asthma without complication 03/09/2018 Lupus 09/15/2012 10/11/2012 documented as of this encounter (statuses as of 09/04/2021) [facility] Narrative* Problem Noted Date Resolved Date Mild intermittent asthma without complication 03/09/2018 Lupus 09/15/2012 10/11/2012 documented as of this encounter (statuses as of 09/11/2021) [facility] Narrative* Problem Noted Date Resolved Date Mild intermittent asthma without complication 03/09/2018 Lupus 09/15/2012 10/11/2012 documented as of this encounter (statuses as of 09/24/2021) [facility] Narrative* Problem Noted Date Resolved Date Mild intermittent asthma without complication 03/09/2018 Lupus 09/15/2012 10/11/2012 documented as of this encounter (statuses as of 09/25/2021) [facility] Narrative* Problem Noted Date Resolved Date Mild intermittent asthma without complication 03/09/2018 Lupus 09/15/2012 10/11/2012 documented as of this encounter (statuses as of 09/26/2021) [facility] Narrative* Problem Noted Date Resolved Date Mild intermittent asthma without complication 03/09/2018 Lupus 09/15/2012 10/11/2012 documented as of this encounter (statuses as of 10/02/2021) [facility] Narrative* Problem Noted Date Resolved Date Mild intermittent asthma without complication 03/09/2018 Lupus 09/15/2012 10/11/2012 documented as of this encounter (statuses as of 10/09/2021) [facility] N[facility]ative* Problem Noted Date Resolved Date Mild intermittent asthma without complication 03/09/2018 Lupus 09/15/2012 10/11/2012 documented as of this encounter (statuses as of 10/21/2021) [facility] N[facility]ative* Problem Noted Date Resolved Date Mild intermittent asthma without complication 03/09/2018 Lupus 09/15/2012 10/11/2012 documented as of this encounter (statuses as of 11/08/2021) [facility] N[facility]ative* Problem Noted Date Resolved Date Mild intermittent asthma without complication 03/09/2018 Lupus 09/15/2012 10/11/2012 documented as of this encounter (statuses as of 11/08/2021) [facility] Diagnosis Attention deficit disorder (ADD) without hyperactivity- Primary Bipolar affective disorder, remission status unspecified (HCC) Anxiety with depression [facility] Diagnosis Bipolar 2 disorder (HCC)- Primary Other bipolar disorders PAULY (generalized anxiety disorder) Generalized anxiety disorder Attention deficit disorder (ADD) without hyperactivity [facility]* Diagnosis Bipolar disorder, unspecified (HCC) Bipolar disorder, unspecified Other specified anxiety disorders [facility]* Diagnosis NO SHOW- Primary documented in this encounter [facility] note* Diagnosis Bipolar disorder, unspecified (HCC) Bipolar disorder, unspecified Other specified anxiety disorders [facility] Nausea vomiting and diarrhea- Primary Elevated bilirubin documented in this encounter [facility] Work Phone: Instructions * Patient Instructions - Marian Sheffield CNP - 05/09/2018 5:49 PM EST Formatting of this note may be different from the original. Start Claritin & Tylenol as prescribed. Await culture results. Continue all other medications as previously prescribed by other providers. Follow-up with Primary Care Provider or return to clinic in 5-7 days if not improving or worsening of symptoms Go to the nearest Emergency Department for any Chest Pain or Shortness of Breath Pharyngitis (Sore Throat), Report Pending Pharyngitis (sore throat) is often due to a virus. It can also be caused by streptococcus (strep), bacteria. This is often called strep throat. Both viral and strep infections can cause throat pain that is worse when swallowing, aching all over, headache, and fever. Both types of infections are contagious. They may be spread by coughing, kissing, or touching others after touching your mouth or nose. A test has been done to find out if you or your child have strep throat. Call this facility or yourhealthcare provider if you were not given your test results. If the test is positive for strep infection, you will need to take antibiotic medicines. A prescription can be called into your pharmacy at that time. If the test is negative, you probably have a viral pharyngitis. This does not need to be treated with antibiotics. Until you receive the results of the strep test, you should stay home from work. If your child is being tested, he or she should stay home from school. Home care Rest at home. Drink plenty of fluids so you won't get dehydrated. If the test is positive for strep, you or your child should not go to work or school for the first 2 days of taking the antibiotics. After this time, you or your child will not be contagious. You or your child can then return to work or school when feeling better. Use the antibiotic medicine for the full 10 days. Do not stop the medicine even if you or your child feel better. This is very important to make sure the infection is fully treated. It is also important to prevent medicine-resistant germs from growing. If you or your child were given an antibiotic shot, no more antibiotics are needed. Use throat lozenges or numbing throat sprays to help reduce pain. Gargling with warm salt water will also help reduce throat pain. Dissolve 1/2 teaspoon of salt in 1 glass of warm water. Children cansip on juice or a popsicle. Children 5 years and older can also suck on a lollipop or hard candy. Don't eat salty or spicy foods or give them to your child. These can irritate the throat. Other medicine for a child: You can give your child acetaminophen for fever, fussiness, or discomfort. In babies over 6 months of age, you may use ibuprofen instead of acetaminophen. If your child has chronic liver or kidney disease or ever had a stomach ulcer or GI bleeding, talk with your child shealthcare provider before giving these medicines. Aspirin should never be used by any child under 18 years of age who has a fever. It may cause severe liver damage. Other medicine for an adult: You may use acetaminophen or ibuprofen to control pain or fever, unless another medicine was prescribed for this. If you have chronic liver or kidney disease or ever had a stomach ulcer or GI bleeding, talk with your healthcare provider before using these medicines. Follow-up care Follow up with your healthcare provider or our staff if you or your child don't get better over thenext week. When to seek medical advice Call your healthcare provider right away if any of these occur: Fever as directed by your healthcare provider. For children, seek care if: Your child is of any age and has repeated fevers above 104 F (40 C). Your child is younger than 2 years of age and has a fever of 100.4 F (38 C) for more than 1 day. Your child is 2 years old or older and has a fever of 100.4 F (38 C) for more than 3 days. New or worsening ear pain, sinus pain, or headache Painful lumps in the back of neck Stiff neck Lymph nodes are getting larger Can t swallow liquids, a lot of drooling, or can t open mouth wide due to throat pain Signs of dehydration, such as very dark urine or no urine, sunken eyes, dizziness Trouble breathing or noisy breathing Muffled voice New rash Other symptoms getting worse Prevention Here are steps you can take to help prevent an infection: Keep good hand washing habits. Don t have close contact with people who have sore throats, colds, or other upper respiratory infections. Don t smoke, and stay away from secondhand smoke. Stay up to date with of your vaccines. Date Last Reviewed: 03/04/201719999828-9432 [employer]. [address] [place] [address]. All rights reserved. This information is not intended as a substitute for professional medical care. Always follow yourhealthcare professional's instructions. Preventing Common Respiratory Infections Respiratory infections such as colds and influenza ( the flu ) are common in winter. These infections are often caused by viruses. They may share some symptoms, but not all respiratory infections arethe same. Some make you more sick than others. You can take steps to prevent common respiratory infections. And if you get sick, you can take care of yourself to keep the infection from getting worse. What is a cold? Symptoms include runny nose, coughing and sneezing, and sore throat. Cold symptoms tend to be milder than flu symptoms. Symptoms tend to come on slowly. They last for a few days to about a week. With a cold, you can still do most of the things you usually do. What is the flu? Symptoms include fever, headache, fatigue, cough, sore throat, runny nose, and muscle aches. Children may have upset stomach and vomiting, but adults usually don t. Symptoms tend to come on quickly. Some, such as fatigue and cough, can last a few weeks. With the flu, you may feel worn out and not able to do normal activities. It s most likely NOT the flu if an adult has vomiting or diarrhea for a day or two. This so-called stomach flu is probably a GI (gastrointestinal) infection. When the infection gets worse Without proper care, a respiratory infection can get worse. It can lead to serious complications and . If you aren t getting better, call your healthcare provider. Complications can include: Bronchitis (infection of the airways that leads to shortness of breath and coughing up thick yellowor green mucus) Pneumonia (infection of the lungs in which fluid and mucus settle in the lungs, making breathing difficult) Worsening of chronic conditions such as heart failure, chronic lung disease, asthma, or diabetes Severe dehydration (loss of fluids) Sinus problems Ear infections Get a flu vaccine A flu vaccine protects you from influenza (but not other colds or infections). Get a vaccine each fall, before flu season starts. This can be done at a clinic, healthcare provider s office, drugstore, [facility], or through your workplace. Get pneumococcal vaccines Pneumonia can be a complication of influenza. There are 2 pneumococcal pneumonia vaccines that protect against many types of pneumonia. Talk with your healthcare provider about these important vaccines. Keep germs from spreading No one likes getting sick. To protect yourself and others from cold and flu germs: Wash your hands often. Use alcohol-based hand branch sales and service representative when you don t have access to soap and water. Don t touch your eyes, nose, and mouth. This may help you keep germs out of your body. Try to avoid people with respiratory infections. You may want to stay out of crowds during flu season (winter). Ask your healthcare provider if you should get a pneumonia vaccination. How to wash your hands Use warm water and plenty of soap. Work up a good lather. Clean your whole hand, under your nails, between your fingers, and up your wrists. Wash for at least 15 to 20 seconds. Don t just wipe rub well. Rinse. Let the water run down your fingertips, not up your wrists. In a public restroom, use a paper towel to turn off the faucet and open the door. Date Last Reviewed: 04/03/201619993428-7014 [employer]. [address] [place], [place] [id number]. All rights reserved. This information is not intended as a substitute for professional medical care. Always follow yourhealthcare professional's instructions. Over the Counter Medicines during We suggest that you avoid using any medicines if you can during , especially during the first 3 months. If you need to relieve a minor problem, use over the counter medicines from this list.Many of the medicines are available as store brands, which often cost less than brand name products. Take this list with you and ask your pharmacist if you are not sure of what product to buy. Medicine safety during Do not take aspirin or ibuprofen or any products that contain aspirin or ibuprofen in them while unless directed by your provider. A low dose of aspirin may be prescribed by your provider for certain medical conditions. If your symptoms get worse or do not go away in 1 to 3 days, talk to your provider. Follow the package instructions for how much medicine to take and how often you can take it. Do not use any herbal treatments unless you talk to your provider or pharmacist to know whether there may be any risk to you and your baby. If you are not sure what medicine to use, ask your health care provider or pharmacist. Problem and medicine Chest congestion Guaifenesin (Mucinex) Cough suppression Dextromethorphan (Delsym or Robitussin) Constipation Drink 2 to 4 ounces of prune juice each day Docusate (Colace) Polycarbophil calcium (FiberCon) Psylium (Metamucil) Magnesium hydroxide (Laurent' Milk of Magnesia) Methyl cellulose (Citrucel) Diarrhea Loperimide (Imodium) Gas pains Simethicone (Mylicon) Heartburn (GI reflux) Calcium carbonate (Tums) Calcium carbonate and magnesium hydroxide (Rolaids) Famotidine (Pepcid) 20 mg twice a day Magnesium hydroxide, aluminum hydroxide, and simethicone (Maalox or Mylanta) Magaldrate (Riopan) Ranitidine (Zantac) 75 mg twice a day Hemorrhoids Hydrocortisone (Preparation H or Anusol HC) Glycerin and witch maria del rosario topical (Tucks Medicated Cooling Pads) Minor aches, pain, or headache Acetaminophen (Tylenol) Nausea Pyridoxine (vitamin B6) 25 mg every 8 hours along with doxylamine (Unisom) 25 mg each night Sinus congestion or stuffy nose Check with your provider before taking these medicines or any medicines that contain pseudoephedrine. Pseudoephedrine (Sudafed) Pseudoephedrine and acetaminophen (Sinutab) Pseudoephedrine and tripolidine (Actifed) Sore throat Benzocaine and menthol (Cepacol Sore Throat) Dyclonine (Sucrets) Trouble sleeping (Insomnia) Diphenhydramine (Benadryl) 25 mg Doxylamine (Unisom) Vaginal yeast infection Use 3 or 7-day treatment, not a 1 day product. Clotrimazole (Gyne-Lotrimin or Mycelex Cream) Miconazole (Monistat Cream) Terconazole (Terazol Cream) 2004March 30, 2017. [facility]. This handout is for informational purposes only. Talk with your doctor or health care team if you have any questions about your care. in this encounter* Patient Instructions* Ni Mcfarland, CONFIGURATION MANAGEMENT MANAGER-EXPORT DOCUMENTS CLERK - 11/15/2018 12:20 PM EDT Painful Urination (Dysuria): Care Instructions SENT FOR CULTURE - WE WILL CALL YOU WITH THE RESULTS AND THEN START MEDICATIONS Your Care Instructions Burning pain with urination (dysuria) is a common symptom of a urinary tract infection or other urinary problems. The bladder may become inflamed. This can cause pain when the bladder fills and empties. You may also feel pain if the tube that carries urine from the bladder to the outside of the body (urethra) gets irritated or infected. Sexually transmitted infections (STIs) also may cause pain when you urinate. Sometimes the pain can be caused by things other than an infection. The urethra can be irritated bysoaps, perfumes, or foreign objects in the urethra. Kidney stones can cause pain when they pass through the urethra. The cause may be hard to find. You may need tests. Treatment for painful urination depends on the cause. Follow-up care is a camacho part of your treatment and safety. Be sure to make and go to all appointments, and call your doctor if you are having problems. It's also a good idea to know your test resultsand keep a list of the medicines you take. How can you care for yourself at home? Drink extra water for the next day or two. This will help make the urine less concentrated. (If youhave kidney, heart, or liver disease and have to limit fluids, talk with your doctor before you increase the amount of fluids you drink.) Avoid drinks that are carbonated or have caffeine. They can irritate the bladder. Urinate often. Try to empty your bladder each time. For women: Urinate right after you have sex. After going to the bathroom, wipe from front to back. Avoid douches, bubble baths, and feminine hygiene sprays. And avoid other feminine hygiene productsthat have deodorants. When should you call for help? Call your doctor now or seek immediate medical care if: You have new symptoms, such as fever, nausea, or vomiting. You have new or worse symptoms of a urinary problem. For example: You have blood or pus in your urine. You have chills or body aches. It hurts worse to urinate. You have groin or belly pain. You have pain in your back just below your rib cage (the flank area). Watch closely for changes in your health, and be sure to contact your doctor if you have any problems. Where can you learn more? Go to https://www.[employer]/TrustTeam. Enter H814 in the search box to learn more about 'Painful Urination (Dysuria): Care Instructions.' Interested in seeing a video go to https://www.[employer]Team/videolibrary to see all video content. Current as of: April 21, 2018 Content Version: [id number] [employer]. Care instructions adapted under license by your healthcare professional. If you have questions about a medical condition or this instruction, always ask your healthcare professional. [employer] disclaims any warranty or liability for your use of this information. documented in this encounter History of Present Illness * Marian Sheffield CNP - 05/09/2018 5:10 PM EST Formatting of this note may be different from the original. URGENT CARE eNCOUnter CHIEF COMPLAINT Cough (s/sx started on Thursday morning with head congestion and a cough, states s/sx have worsened, and had a fever today of 99.8. Complains of a cough that is productive with yellow sputum.) HPI Jordyn Andrea is a 22 y.o. female who presents today for 2 days sinus congestion, cough, sore throat x 2 days that she feels is worsening. She is 14 weeks . She states that she did take Tylenol today for fever of 99. She did not receive her Flu Vacc this season. She denies rash REVIEW OF SYSTEMS Review of Systems Constitutional: Positive for fever. HENT: Positive for congestion, sinus pressure and sore throat. Negative for ear pain. Respiratory: Positive for cough. Cardiovascular: Negative for chest pain. Skin: Negative for rash. Neurological: Positive for headaches. PAST MEDICAL HISTORY No past medical history on file. SURGICAL HISTORY Past Surgical History: Procedure Laterality Date FOOT SURGERY Right CURRENT MEDICATIONS Current Outpatient Prescriptions Medication Sig Dispense Refill Vit-DSS-Fe Cbn-FA ( AD PO) Take by mouth. No current facility-administered medications for this visit. ALLERGIES No Known Allergies FAMILY HISTORY Family History Problem Relation Age of Onset Cancer- Other Other uknown - in kidney but not renal ca SOCIAL HISTORY Social History Social History Marital status: Single Spouse name: N/A Number of children: N/A Years of education: N/A Occupational History Not on file. Social History Main Topics Smoking status: Never Smoker Smokeless tobacco: Never Used Alcohol use No Drug use: No Sexual activity: Not on file Other Topics Concern Domestic Violence No Social History Narrative No narrative on file PHYSICAL EXAM Blood pressure 94/60, pulse 99, temperature 98.8 F (37.1 C), temperature source Temporal, resp. rate 17, height 1.626 m (5' 4 ), weight 56.7 kg (124 lb 14.4 oz), SpO2 97 %. Physical Exam Constitutional: She is oriented to person, place, and time. She appears well- developed and well-nourished. HENT: Right Ear: Tympanic membrane normal. Left Ear: Tympanic membrane normal. Mouth/Throat: Oropharynx is clear and moist. Tonsils are 2+ on the right. Tonsils are 2+ on the left. Neck: Normal range of motion. Cardiovascular: Normal rate, regular rhythm and normal heart sounds. Pulmonary/Chest: Effort normal and breath sounds normal. Nonproductive cough Lymphadenopathy: She has no cervical adenopathy. Neurological: She is alert and oriented to person, place, and time. Skin: Skin is warm and dry. Psychiatric: She has a normal mood and affect. Her behavior is normal. Nursing note and vitals reviewed. Labs Rapid Strep Neg Rapid Flu Neg Diagnosis, Assessment & Plan: Jordyn was seen today for cough. Diagnoses and all orders for this visit: Cough - POCT INFLUENZA, A B Sore throat - CULTURE THROAT; Future - POCT RAPID STREP A Other orders - Vit-DSS-Fe Cbn-FA ( AD PO); Take by mouth. Start Claritin & Tylenol as prescribed. Await culture results. Continue all other medications as previously prescribed by other providers. Follow-up with Primary Care Provider or return to clinic in 5-7 days if not improving or worsening of symptoms Go to the nearest Emergency Department for any Chest Pain or Shortness of Breath Marian Sheffield CNP 05/09/2018 in this encounter* Ni Mcfarland APRN-CNP - 11/15/2018 12:20 PM EDT HPI Jordyn Andrea is a 23 y.o. female presenting to the clinic for dysuria. States that she is post- of 5 days vaginal with no complications. She reports that she has noticed since giving that it feels like a UTI. Call her OB -but sent her here. ROS Constitutional: Denies Fever or chills Eyes: Denies visual change or eye discharge Head/Ear/Nose/Throat: Denies earache or sore throat Respiratory: Denies shortness of breath. Denies cough Cardiovascular: Denies chest pain or palpitations Gastrointestinal: SEE HPI Genitourinary: SEE HPI Musculoskeletal: Denies Joint pain, Denies muscle pain Skin: Denies Rash PHYSICAL EXAM Blood pressure 112/76, pulse 80, temperature 98.5 F (36.9 C), temperature source Temporal, resp. rate 16, height 1.626 m (5' 4 ), weight 67.5 kg (148 lb 12.8 oz), SpO2 98 %, unknown if currently . Primary Assessment: Airway patent. Respirations unlabored, Normal respiratory effort Constitutional: Vital signs reviewed. Well appearing. No distress Thorax/ Respiratory: Respiratory effort non-labored. CTAB. Heart: Regular rate and rhythm Gastrointestinal: No CVA tenderness, but suprapubic tenderness with palpation. Musculoskeletal: Neck supple. All joints grossly normal. Neurologic: Alert and Oriented Diagnosis: ICD-10-CM 1. Dysuria R30.0 2. UTI symptoms R39.9 POCT URINALYSIS DIPSTICK NON AUTOMATED URINE CULTURE Plan: Urine shows blood and Leuks. Due to her recent and I will wait for cx to get her on a ATB as I explained the risk of it not working depending on cx. She agreed to wait and I explained that we will CALL HER TO START ON APPROP. Medication. VERNON Alcazar 11/15/2018 documented in this encounter Assessments Diagnosis Cough- Primary Sore throat Acute pharyngitis Viral URI Acute upper respiratory infections of unspecified site Diagnosis Dysuria- Primary UTI symptoms Summary Purpose Family History No Family History Records FoundNo Family History Records FoundNo Family History Records FoundNo Family History Records FoundNo Family History Records FoundNo Family History Records FoundNo Family History Records FoundNo Family History Records FoundNo Family History Records Found Advance Directives No Advanced Directives Records FoundNo Advanced Directives Records FoundNo Advanced Directives Records FoundNo Advanced Directives Records FoundNo Advanced Directives Records FoundNo Advanced Directives Records FoundNo Advanced Directives Records FoundNo Advanced Directives Records FoundNo Advanced Directives Records Found Reason for Referral Specialty Diagnoses / Procedures Referred By Contac t Referred To Contact Diagnoses Attention deficit disorder (ADD) without hyperactivity Bipolar affective disorder, remission status unspecified (HCC) Anxiety with depression Procedures CONSULT TO PSYCHIATRY OFFICE/OUTPATIENT [facility] 60-74 MINUTES Alex Matthew, CONFIGURATION MANAGEMENT MANAGER.EXPORT DOCUMENTS CLERK [address] [place] [address] Referral ID Status Reason Start Date Expiration Date Visits Requested Visits Authorized [id number] Pending Review PCP Requested Referral 08/19/2021 08/19/2022 1 1 Additional Source Comments Reason for Visit (unrecogniz ed section and content) Reason Comments Cough s/sx started on Frid ay morning with head congestion and a cough, states s/sx have worsened, and had a fever today of 99.8. Complains of a cough that is productive with yellow sputum. Reason Comments Urinary Pain Reason Comments Medication Follow-up Reason Comments New Patient Evaluation Specialty Diagnoses / Procedures [facility] Ref[facility] To Contact Diagnoses Attention deficit disorder (ADD) without hyperactivity Bipolar affective disorder, remission status unspecified (HCC) Anxiety with depression Procedures CONSULT TO PSYCHIATRY OFFICE/OUTPATIENT [facility] 60-74 MINUTES Alex Matthew, CONFIGURATION MANAGEMENT MANAGER.EXPORT DOCUMENTS CLERK [address] [place] [address] Referral ID Status Reason Start Date Expiration Date Visits Requested Visits Authorized [id number] Pending Review PCP Requested Referral 08/19/2021 08/19/2022 1 1 Reason Comments Scheduling Reason Comments Refill Request Reason Comments Opened In Error Reason Comments Results Reason Comments No Show Reason Onset Date Comments Refill Request 11/08/2021 Reason Comments Flu Symptoms Patient to ED refere nce nausea/vomiting/diarrhea with a NPC and body ache/chills x a day. INFORMATION SOURCE (unrecogn ized section and content) DATE CREATED AUTHOR 05/09/2018 [facility] DATE CREATED AUTHOR AUTHOR'S ORGANIZ ATION 11/21/2018 [facility] DATE CREATED AUTHOR AUTHOR'S ORGANIZ ATION 03/23/2019 [facility] DATE CREATED AUTHOR AUTHOR'S ORGANIZ ATION 03/24/2021 [facility] DATE CREATED AUTHOR AUTHOR'S ORGANIZ ATION 10/10/2021 [facility] DATE CREATED AUTHOR AUTHOR'S ORGANIZ ATION 10/11/2021 [facility] DATE CREATED AUTHOR AUTHOR'S ORGANIZ ATION 12/09/2021 [facility] DATE CREATED AUTHOR AUTHOR'S ORGANIZ ATION 10/14/2022 [facility] DATE CREATED AUTHOR AUTHOR'S ORGANIZ ATION 01/20/2024 [facility] <item><item> Privacy Markings (unrecogniz ed section and content) Section Author: Tereza Armijo PROHIBITION ON REDISCLOSURE OF CONFIDENTIAL INFORMATION This notice accompanies a disclosure of information concerning a client made to you with the consent of such client. Section Author: Tereza Armijo PROHIBITION ON REDISCLOSURE OF CONFIDENTIAL INFORMATION This notice accompanies a disclosure of information concerning a client made to you with the consent of such client. Source Comments (unrecognize d section and content) In the event this informatio n is protected by the Federal Confidentiality of Alcohol and Drug Abuse Patient Records regulations: The Federal rules restrict any use of the information to criminally investigate or prosecute any alcohol or drug abuse patient.[facility] the event this information is protected by the Federal Confidentiality of Alcohol and Drug Abuse Patient Records regulations: The Federal rules restrict any use of the information to criminally investigate or prosecute any alcohol or drug abuse patient.[facility] Hospital[facility] the event this information is protected by the Federal Confidentiality of Alcohol and Drug Abuse Patient Records regulations: The Federal rules restrict any use of the information to criminally investigate or prosecute any alcohol or drug abuse patient.[facility] the event this information is protected by the Federal Confidentiality of Alcohol and Drug Abuse Patient Records regulations: The Federal rules restrict any use of the information to criminally investigate or prosecute any alcohol or drug abuse patient.[facility] HospitalIn the event this information is protected by the Federal Confidentiality of Alcohol and Drug Abuse Patient Records regulations: The Federal rules restrict any use of the information to criminally investigate or prosecute any alcohol or drug abuse patient.[facility] Hospital[facility] the event this information is protected by the Federal Confidentiality of Alcohol and Drug Abuse Patient Records regulations: The Federal rules restrict any use of the information to criminally investigate or prosecute any alcohol or drug abuse patient.[facility] HospitalIn the event this information is protected by the Federal Confidentiality of Alcohol and Drug Abuse Patient Records regulations: The Federal rules restrict any use of the information to criminally investigate or prosecute any alcohol or drug abuse patient.[facility] HospitalIn the event this information is protected by the Federal Confidentiality of Alcohol and Drug Abuse Patient Records regulations: The Federal rules restrict any use of the information to criminally investigate or prosecute any alcohol or drug abuse patient.[facility] Hospital[facility] the event this information is protected by the Federal Confidentiality of Alcohol and Drug Abuse Patient Records regulations: The Federal rules restrict any use of the information to criminally investigate or prosecute any alcohol or drug abuse patient.[facility] Hospital[facility] the event this information is protected by the Federal Confidentiality of Alcohol and Drug Abuse Patient Records regulations: The Federal rules restrict any use of the information to criminally investigate or prosecute any alcohol or drug abuse patient.[facility] Hospital[facility] the event this information is protected by the Federal Confidentiality of Alcohol and Drug Abuse Patient Records regulations: The Federal rules restrict any use of the information to criminally investigate or prosecute any alcohol or drug abuse patient.[facility] HospitalIn the event this information is protected by the Federal Confidentiality of Alcohol and Drug Abuse Patient Records regulations: The Federal rules restrict any use of the information to criminally investigate or prosecute any alcohol or drug abuse patient.[facility] Care Teams (unrecognized sec tion and content) Gas Jockey Relationship Specialty Start Date End Date Kenneth Marti, DO [address] [facility] [place] [address] PCP - General Family Practice 06/03/13 Gas Jockey Relationship Specialty Start Date End Date Kenneth Marti, DO [address] [facility] [place] [address] PCP - General Family Practice 06/03/13 Gas Jockey Relationship Specialty Start Date End Date Kenneth Marti, DO [address] [facility] [place] [address] PCP - General Family Practice 06/03/13 Gas Jockey Relationship Specialty Start Date End Date Kenneth Marti, DO [address] [facility] [place] [address] PCP - General Family Practice 06/03/13 Gas Jockey Relationship Specialty Start Date End Date Kenneth Marti, DO [address] [facility] [place] [address] PCP - General Family Practice 06/03/13 Gas Jockey Relationship Specialty Start Date End Date Kenneth Marti, DO [address] [facility] [place] [address] PCP - General Family Practice 06/03/13 Gas Jockey Relationship Specialty Start Date End Date Kenneth Marti, DO [address] [facility] [place] [address] PCP - General Family Practice 06/03/13 Gas Jockey Relationship Specialty Start Date End Date Kenneth Marti, DO [address] [facility] [place] [address] PCP - General Family Practice 06/03/13 Gas Jockey Relationship Specialty Start Date End Date MartiKenneth johnson DO [address] [place], [place] [address] PCP - [facility] Practice 06/03/13 Gas Jockey Relationship Specialty Start Date End Date Kenneth Marti DO [address] [place], [place] [id number] PCP - [facility] Practice 06/03/13 Gas Jockey Relationship Specialty Start Date End Date Figueroa Kenneth ChaughDO [address] [place] [id number] PCP - General 10/28/19 Scheduled Active and Recently Administ ered Medications (unrecognized section and content) Medication Order 04/13/2023 04/14/2023 04/15/2023 ondansetron (Zofran) injection 4 mg (COMPLETED) 4 mg, intravenous, Once, On Thu04/15/23 at 1325, For 1 dose, When administering via IV Push, administer over 3-5 minutes. 1345 (Given - Provid er: Dianna Harris RN) sodium chloride 0.9 % bolus 1,000 mL (COMPLETED) 1,000 mL, intravenous, at 1,000 mL/hr, Administer over 1 Hours, Once, On Thu04/15/23 at 1325, For 1 dose 1345 (New Bag - Prov ider: Dianna Harris RN)1445 (Stopped - Provider: Dianna Harris RN) FOR RECORDS PERTAINING TO PATIENTS WHO ARE OR HAVE BEEN ENROLLED IN A CHEMICAL DEPENDENCY/SUBSTANCEABUSE PROGRAM, SOME INFORMATION MAY BE OMITTED. This clinical summary was aggregated from multiple sources. Caution should be exercised in using it in the provision of clinical care. This summary normalizes information from multiple sources, and as a consequence, information in this document may materially change the coding, format and clinical context of patient data. In addition, data may be omitted in some cases. CLINICAL DECISIONS SHOULD BE BASED ON THE PRIMARY CLINICAL RECORDS. [facility]. provides no warranty or guarantee of the accuracy or completeness of information in this document.
[2024-02-23 12:25] LABS: Absolute Lymphocyte Count 1.16 X10^3/uL (0.83-4.51); Absolute Neutrophil Count 3.7 X10^3/uL (2.0-7.7); Basophil# 0.03 X10^3/uL; Basophil% 0.6 % (0-1); Eosinophil# 0.03 X10^3/uL; Eosinophils% 0.6 % (0-5); Hematocrit 37.3 % (37-47); Hemoglobin 12.6 g/dL (12.0-15.0); Lymphocyte # 1.16 X10^3/ul (0.83-4.51); Lymphocyte % 21.9 % (19-41); Mean Corp Hgb Conc 33.8 g/dL (32-36); Mean Corpuscular Hgb 29.7 pg (27.0-32.0); Mean Platelet Vol. 10.1 fl (6.2-12.0); Monocyte# 0.33 X10^3/uL; Monocyte% 6.2 % (0-10); NRBC Flagged by Analyzer 0 % (0-5); Neutrophil # 3.72 X10^3/uL (2.7-7.7); Neutrophil % 70.1 % (47-70); Platelet Count 280 K/mm3 (150-450); RBC Distribution Width CV 12.6 % (11.6-14.6); RBC Distribution Width SD 40.6 fl (35.1-43.9); Red Blood Count 4.24 M/mm3 (4.2-5.4); White Blood Count 5.3 K/mm3 (4.4-11.0)
[2024-02-23 13:12] LABS: HIV - WCH Non-Reactive (Nonreactive); Hepatitis B Surface Antigen Non-Reactive (Nonreactive); Hepatitis C Antibody Non-Reactive (Nonreactive); Rubella IgG Reactive (Nonreactive); Syphilis Antibodies Non-reactive
== END | disposition home or self-care (01) ==
LOC: WOBLAB 11:20
PROVIDERS: Referring Provider Advanced Practice Midwife; Visit Provider Advanced Practice Midwife
DX: O09.90 Supervision of high risk pregnancy, unspecified, unspecified trimester (principal); Z3A.00 Weeks of gestation of pregnancy not specified
CPT/HCPCS: 36415; 85025; 86703; 86762; 86780; 86803; 86850; 86900; 86901; 87340

== ENCOUNTER → 2024-06-14 | Outpatient (CLI) | payer MEDICAID, SELFPAY ==
[2024-06-14 12:13] LABS: Glucose Challenge Gest 1H 50g 99 mg/dL (70-140)
[2024-06-14 12:39] LABS: Absolute Lymphocyte Count 1.26 X10^3/uL (0.83-4.51); Absolute Neutrophil Count 4.7 X10^3/uL (2.0-7.7); Basophil# 0.03 X10^3/uL; Basophil% 0.5 % (0-1); Eosinophil# 0.06 X10^3/uL; Eosinophils% 0.9 % (0-5); Hematocrit 37.7 % (37-47); Hemoglobin 12.4 g/dL (12.0-15.0); Lymphocyte # 1.26 X10^3/ul (0.83-4.51); Lymphocyte % 19.5 % (19-41); Mean Corp Hgb Conc 32.9 g/dL (32-36); Mean Corpuscular Hgb 30.5 pg (27.0-32.0); Mean Corpuscular Volume 92.6 fL (81-99); Mean Platelet Vol. 10.2 fl (6.2-12.0); Monocyte# 0.38 X10^3/uL; Monocyte% 5.9 % (0-10); NRBC Flagged by Analyzer 0 % (0-5); Neutrophil # 4.65 X10^3/uL (2.7-7.7); Neutrophil % 71.8 % (47-70); Platelet Count 227 K/mm3 (150-450); RBC Distribution Width SD 43.5 fl (35.1-43.9); Red Blood Count 4.07 M/mm3 (4.2-5.4); White Blood Count 6.5 K/mm3 (4.4-11.0)
[2024-06-15 01:13] LABS: HIV - WCH Non-Reactive (Nonreactive); Syphilis Antibodies Non-reactive
== END | disposition home or self-care (01) ==
LOC: BWCLAB 11:03
PROVIDERS: Obstetrics & Gynecology; Referring Provider Nurse Practitioner Women's Health; Visit Provider Nurse Practitioner Women's Health
DX: O99.891 Other specified diseases and conditions complicating pregnancy (principal); R30.0 Dysuria; Z3A.00 Weeks of gestation of pregnancy not specified; Z13.1 Encounter for screening for diabetes mellitus
CPT/HCPCS: 36415; 82950; 85025; 86703; 86780; 87086; 87088

== ENCOUNTER → 2024-08-25 | Outpatient (CLI) | payer MEDICAID, SELFPAY ==
--- NOTE | 2024-08-25 11:32 | US_ITS ---
PROCEDURE: OB LIMITED WITH BIOMETRICS 08/25/2024 REASON FOR EXAM: GROWTH TECHNIQUE: High resolution obstetric ultrasound performed using a 2D transducer. Standard views obtained, including biometry, anatomy survey, and Doppler studies. COMPARISON: None FINDINGS Number: 1 Position: Vertex Placental Position: Anterior and not low-lying. Placental Abnormalities: No evidence of previa. DIMENSIONS: Biparietal Diameter: 8.95 cm: 36 weeks and 2 days: 59 percentile/ Head Circumference: 33.23 cm: 37 weeks and 6 days: 61 percentile/ Abdominal Circumference: 33.56 cm: 37 weeks and 3 days: 88 percentile/ Femur Length: 6.64 cm: 34 weeks and 1 day: 6 percentile/ ESTIMATED WEIGHT: 2961 g plus/-444 g ESTIMATED WEIGHT PERCENTILE (24+ weeks): 59 ESTIMATED GESTATIONAL AGE: Baseline: 36 weeks and 2 days By Ultrasound: 36 weeks and 4 days ESTIMATED DATE OF DELIVERY: Baseline: September 21, 2023 By Ultrasound: September 18, 2024 BIOPHYSICAL ASSESSMENT: Amniotic Fluid Volume: 6.5 cm Amniotic Fluid Index: 18.4 (8-24 cm normal range) Cardiac Motion: 148 beats per minute (average) Trunk and Limb Motion: Present. MATERNAL ANATOMY: Adnexa: Neither maternal ovary is successfully identified. US/OB Limited With Biometrics IMPRESSION: Single live intrauterine gestation with mean gestational age of 36 weeks and 4 days. Reading Location: [place] [id number]
== END | disposition home or self-care (01) ==
LOC: US 11:21
PROVIDERS: Referring Provider Obstetrics & Gynecology; Visit Provider Obstetrics & Gynecology
DX: Z34.93 Encounter for supervision of normal pregnancy, unspecified, third trimester (principal); Z3A.36 36 weeks gestation of pregnancy; Z87.59 Personal history of other complications of pregnancy, childbirth and the puerperium
CPT/HCPCS: 76816

== ENCOUNTER → 2024-08-25 | Outpatient (CLI) | payer MEDICAID, SELFPAY ==
[2024-08-25 12:24] LABS: Absolute Lymphocyte Count 1.35 X10^3/uL (0.83-4.51); Absolute Neutrophil Count 4.5 X10^3/uL (2.0-7.7); Basophil# 0.04 X10^3/uL; Basophil% 0.6 % (0-1); Eosinophil# 0.06 X10^3/uL; Eosinophils% 0.9 % (0-5); Hematocrit 34.9 % (37-47); Hemoglobin 11.8 g/dL (12.0-15.0); Lymphocyte # 1.35 X10^3/ul (0.83-4.51); Lymphocyte % 20.5 % (19-41); Mean Corp Hgb Conc 33.8 g/dL (32-36); Mean Corpuscular Hgb 30.7 pg (27.0-32.0); Mean Corpuscular Volume 90.9 fL (81-99); Mean Platelet Vol. 10.4 fl (6.2-12.0); Monocyte# 0.58 X10^3/uL; Monocyte% 8.8 % (0-10); NRBC Flagged by Analyzer 0 % (0-5); Neutrophil # 4.46 X10^3/uL (2.7-7.7); Platelet Count 226 K/mm3 (150-450); RBC Distribution Width CV 13.6 % (11.6-14.6); RBC Distribution Width SD 44.8 fl (35.1-43.9); Red Blood Count 3.84 M/mm3 (4.2-5.4); White Blood Count 6.6 K/mm3 (4.4-11.0)
[2024-08-25 12:57] LABS: ALB/GLOB Ratio 1.3 RATIO (0.9-2.4); AST(SGOT) 18 U/L (<=31); Alanine Aminotransfer ALT/SGPT 10 U/L (<=34); Albumin, Serum 3.4 g/dL (3.5-5.0); Alkaline Phosphatase 80 U/L (35-104); Anion Gap 11 (5-15); BUN 5 mg/dL (4-19); BUN/Creat Ratio 9.1 RATIO (10-20); Calcium,Total 9.2 mg/dL (7.6-11.0); Carbon Dioxide 21.1 mmol/L (21.0-32.0); Chloride 105 mmol/L (98-108); Creatinine, Serum 0.59 mg/dL (0.70-1.20); EST Glomerular Filtration Rate 123 (>60); Globulin 2.5 g/dL (2.2-4.2); Glucose 96 mg/dL (70-99); Potassium 4.1 mmol/L (3.3-5.1); Sodium Level 137 mmol/L (133-145); Total Bilirubin 0.71 mg/dL (0.00-1.30)
[2024-08-25 13:06] LABS: Protein, Urine (Random) 7.3 mg/dL (0.0-12.0); Protein:Creat Ratio 129 mg/g CRE (0-200)
== END | disposition home or self-care (01) ==
PROVIDERS: Referring Provider Nurse Practitioner Women's Health; Visit Provider Nurse Practitioner Women's Health
DX: O99.891 Other specified diseases and conditions complicating pregnancy (principal); R51.9 Headache, unspecified; Z3A.00 Weeks of gestation of pregnancy not specified
CPT/HCPCS: 36415; 80053; 82570; 84156; 85025; 87081

== ENCOUNTER 2024-09-13 07:14 | Inpatient (IN) | payer MEDICAID, SELFPAY ==
[2024-09-13] VITALS (76 sets, daily range): BP systolic 93–147; BP diastolic 51–86; PULSE 78–118; RESP 14–20; TEMP 36.4–37.3; O2SAT 86–100; BMI 28.9
[2024-09-13] MEDS: Lactated Ringers 1,000 ML 50 ML IV (07:30)
[2024-09-13 07:53] LABS: Absolute Lymphocyte Count 1.55 X10^3/uL (0.83-4.51); Absolute Neutrophil Count 4.2 X10^3/uL (2.0-7.7); Basophil# 0.03 X10^3/uL; Basophil% 0.5 % (0-1); Eosinophil# 0.06 X10^3/uL; Hematocrit 34.3 % (37-47); Hemoglobin 11.8 g/dL (12.0-15.0); Lymphocyte # 1.55 X10^3/ul (0.83-4.51); Lymphocyte % 24.7 % (19-41); Mean Corp Hgb Conc 34.4 g/dL (32-36); Mean Corpuscular Hgb 30.4 pg (27.0-32.0); Mean Corpuscular Volume 88.4 fL (81-99); Mean Platelet Vol. 10.8 fl (6.2-12.0); Monocyte# 0.33 X10^3/uL; Monocyte% 5.3 % (0-10); NRBC Flagged by Analyzer 0 % (0-5); Neutrophil # 4.23 X10^3/uL (2.7-7.7); Neutrophil % 67.2 % (47-70); Platelet Count 160 K/mm3 (150-450); RBC Distribution Width CV 13.3 % (11.6-14.6); RBC Distribution Width SD 42.7 fl (35.1-43.9); Red Blood Count 3.88 M/mm3 (4.2-5.4); White Blood Count 6.3 K/mm3 (4.4-11.0)
--- NOTE | 2024-09-13 08:03 | HP.PCM.OB_ITS ---
HPI - General General Date of Admission: 09/13/24 HPI Narrative LETTY PALACIOS, is a 29 F who presents for IOL secondary to history of shoulder dystocia. no vb lof EFW 1/2 pound less than previous SD, 1/2 pound more than uncomplicated delivery. Maternal Data Information BACILIO Calculator Estimated Delivery Date Method Current WG Current Estimate 09/20/24 LMP (Certain) 39w 0d Other Estimates 09/23/24 Ultrasound #1 38w 4d PFSH PFSH Medical History (Updated 09/13/24 @ 08:[address] Lucy Ashley MD) Shoulder dystocia, delivered Autoimmune disease hemorrhage Retained placenta Oligohydramnios Mild depression Vaginal delivery depression Placental abnormality Abnormal uterine bleeding Discoid lupus Anxiety Depression Home Medications ?Medication ?Instructions ?Recorded ?Last Taken ?Type multivitamin no.47-iron fum 27 1 cap PO DAILY pregnanc y 02/12/24 09/12/24 History mg-folate no.1 1 mg-dha 300 mg capsule (PNV-DHA) Allergy/AdvReac Type Severity Reaction Status Date / Time No Known Allergies Allergy Verified 09/13/24 07:48 Family History Grandmother Multiple sclerosis Grandfather Cancer Surgical History [place] teeth removed S/P foot surgery, right H/O foot surgery Social History adopted: No household members: spouse and children housing: house number of children: 2 current occupational status: employed 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 pets and animals: Yes (Not managing the litterbox) pets and animals: cat(s), dog(s), fish and turtle(s) history of recent travel: No sexually active: Yes Smoking Status: Never smoker alcohol intake: former details: socially prior to - not while substance use type: does not use well-balanced diet: daily or most days caffeine: No eating out: rarely or never during the past year weight has: remained stable what type of physical activity do you participate in: walking frequency: 3-4 times per week duration: 15-30 minutes/day ash/anabaptist: Judaism seatbelt use: always do you feel safe at home: Yes additional social history: 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 Date Name GA/Weeks Outcome Route Bth Weight Gen Labor Lgth Anesthesia Del Locatn Provider FOB 11/09/18 Black 40 live - full term 7#12oz Female epi dural [facility] Dion 11/07/22 Rizvi 40 live - full term 8#14 Female epid ural [facility] Tatianna Hidalgo Devin Delivery Date: 11/09/18 Last Updated by: Lorraine Bales Oligo Delivery Date: 11/07/22 Last Updated by: Lucy Ashley MD shoulder dystocia, PPH Visit Details Expected Delivery Route/Plan Labor Preferences- CB/BF classes: no labor support person: Devin labor intervention preferences: [] pain management options preferred: epidural cut cord/dad catch: yes : yes PP control planned: yes discussed possible routes of delivery and associated risks: [] special requests: [] Plans Covid status: [] Flu vaccine: [] Tdap vaccine: declines Rhogam: NA LARC form signed: yes Problem list reviewed and updated with the most current plan of care details and appropriate orders placed. Relevant counseling for the gestational age provided. Continue routine care and follow up unless otherwise noted in visit notes/problem list details OB Flowsheet Initial Weight: 130 lb Date -?-?-?-?-?-?-?-?-?-?-?-?- EGA Weight BP Urine Prot -?-?-?-?-?-?-?-?-?-?-?-?- Glucose FHR FuHt Pres Dilation -?-?-?-?-?-?-?-?-?-?-?-?- Effaced St Visit Note 02/18/24 -?-?-?-?-?-?-?-?-?-?-?-?- 9w 2d 130 lb (+0 oz) 119/83 -?-?-?-?-?-?-?-?-?-?-?-?- 168 -?-?-?-?-?-?-?-?-?-?-?-?- KW- CRL cons wit h dates. Accepts NIPT 03/22/24 -?-?-?-?-?-?-?-?-?-?-?-?- 14w 0d 133 lb 8 oz (+3 lb 8 oz) 117/73 Negative -?-?-?-?-?-?-?-?-?-?-?-?- Negative 147 -?-?-?-?-?-?-?-?-?-?-?-?- JV- low risk nip t (boy!) still nauseated. no other complaints. 04/19/24 -?-?-?-?-?-?-?-?-?-?-?-?- 18w 0d 139 lb (+9 lb) 101/65 Negative -?-?-?-?-?-?-?-?-?-?-?-?- Negative 153 -?-?-?-?-?-?-?-?-?-?-?-?- JV- no lof, vagi nal bleeding, or cramping. has ultrasound 05/03 in [place]. 05/17/24 -?-?-?-?-?-?-?-?-?-?-?-?- 22w 0d 101/67 Negative -?-?-?-?-?-?-?-?-?-?-?-?- Negative 145 -?-?-?-?-?-?-?-?-?-?-?-?- -No VB, LOF. G ood FM. Just completed tx for UTI per [facility]. Unable to given enough urine for rpt culture 06/14/24 -?-?-?-?-?-?-?-?--?-?-?-?- 26w 0d 153 lb (+23 lb) 109/73 Negative -?-?-?-?-?-?-?-?-?-?-?-?- Negative 143 26 -?-?-?-?-?-?-?-?-?-?-?-?- -No VB, LOF. G ood Fm. 28 wk labs pending. Fidelc. Rpt urine culture 07/07/24 -?-?-?-?-?-?-?-?-?-?-?-?- 29w 2d 157 lb 2 oz (+27 lb 2 oz) 105/71 Negative -?-?-?-?-?-?-?-?-?-?-?-?- Negative 140 30 -?-?-?-?-?-?-?-?-?-?-?-?- SM- no vb lof go od fm no reuglar ctx 07/21/24 -?-?-?-?-?-?-?-?--?-?-?-?- 31w 2d 158 lb 2 oz (+28 lb 2 oz) 108/73 Negative -?-?-?-?-?-?-?-?-?-?-?-?- Negative 140 31 -?-?-?-?-?-?-?-?-?-?-?-?- KW- no vb/lof/ct xSolomon mcneal fm. long discussion on mode of delivery. 08/02/24 -?-?-?-?-?-?-?-?-?-?-?-?- 33w 0d 161 lb 2 oz (+31 lb 2 oz) 105/71 Negative -?-?-?-?-?-?-?-?-?-?-?-?- Negative 145 33 -?-?-?-?-?-?-?-?-?-?-?-?- JV- patient has decided that if natural labor does not happen on it's own and the baby is going to weigh more than 8.5 pounds at 40 weeks then she wants a c- section at 40 weeks. 08/25/24 -?-?-?-?-?-?-?-?-?-?-?-?- 36w 2d 166 lb (+36 lb) 118/72 Negative -?-?-?-?-?-?-?-?-?-?-?-?- Negative 140 35 -?-?-?-?-?-?-?-?-?-?-?-?- MH-No VB, LOF or reg CTX. Good FM. Growth US today. Noting off and on headache with vision changes last 4 days but none today. Will get Pre E labs. 08/29/24 -?-?-?-?-?-?-?-?-?-?-?-?- 36w 6d 166 lb 4 oz (+36 lb 4 oz) 108/75 Negative -?-?-?-?-?-?-?-?-?-?-?-?- Negative 135 37 Cephalic 1 -?-?-?-?-?-?-?-?-?-?-?-?- 50 -2 JV- no lof , vaginal bleeding, or dec fm. growth scan estimates baby to be 8lbs 5 oz at 40 weeks. planning 39 week IOL. patient prefers doc only for delivery due to h/o shoulder dystocia. She understands one of the risks of i nduction is SD. 09/07/24 -?-?-?-?-?-?-?-?-?-?-?-?- 38w 1d 166 lb 4 oz (+36 lb 4 oz) 127/86 Trace -?-?-?-?-?-?-?-?-?-?-?-?- Negative 135 38 Cephalic 1 -?-?-?-?-?-?-?-?-?-?-?-?- SM- SM- no vb lof goo dfm no reu glar ctx discussion about IOL vs primary c seciton, EFW less than previous SD. plan IOL thursday at 39 weeks NST FHR Rate Baby A Baseline: 130 Variability:: Moderate Accelerations:: 15 x 15 Decelerations:: None NST Reactive:: Yes FHR Category:: Category I Uterine Activity:: irregular ROS Constitutional Constitutional: Reports systems reviewed and no addt'l complaints, except as documented Eyes Eyes: Denies change in vision ENT HEENT: Reports systems reviewed and no addt'l complaints, except as documented; Denies headache(s) Cardiovascular Cardiovascular: Reports systems reviewed and no addt'l complaints, except as documented; Denies chest pain or dyspnea Respiratory/Chest Respiratory/Chest: Reports systems reviewed and no addt'l complaints, except as documented Gastrointestinal Gastrointestinal: Reports systems reviewed and no addt'l complaints, except as documented; Denies abdominal pain Genitourinary Genitourinary: Reports systems reviewed and no addt'l complaints, except as documented, contractions Details: present (irregular) and movement Details: present; Denies dysuria or genital lesions Musculoskeletal Musculoskeletal: Reports systems reviewed and no addt'l complaints, except as documented Neurologic Neurologic: Reports systems reviewed and no addt'l complaints, except as documented Endocrine Endocrinology: Reports systems reviewed and no addt'l complaints, except as documented Vital Signs Vital Signs Vital Signs: 09/13/24 07:30 09/13/24 07:30 09/13/24 07:33 Temperature Temperature Source Pulse Rate 97 Respiratory Rate Blood Pressure 113/81 H BP Systolic 113 BP Diastolic 81 Pulse Ox 100 09/13/24 07:33 09/13/24 07:33 09/13/24 07:33 Temperature Temperature Source Temporal Pulse Rate 99 Respiratory Rate 16 Blood Pressure BP Systolic BP Diastolic Pulse Ox 09/13/24 07:33 Temperature 98.8 F Temperature Source Pulse Rate Respiratory Rate Blood Pressure BP Systolic BP Diastolic Pulse Ox Weight Weight: 168 lb 8 oz Body Mass Index (BMI) 28.9 Physical Exam Const alert, oriented x3, no apparent distress and healthy appearing HEENT normocephalic and moist oral mucous membranes Head and Scalp: atraumatic Neck full ROM, no lymphadenopathy, supple and thyroid normal General: trachea midline Lymph Lymphatic: no lymphadenopathy noted Chest inspection of chest normal Resp normal respiratory effort Cardio regular rate GI soft to palpation and non-tender GI Narrative: gravid Inspection: gravid external exam normal Manual OB Exam: estimated gestational size appropriate, presentation cephalic, dilated, effaced and station Extremity normal to inspection General Extremity: Negative for edema Skin no rashes or lesions noted Neuro no focal motor deficits and deep tendon reflexes 2+ bilaterally Motor Exam: strength 5/5 throughout and clonus absent Psych mental status grossly normal Labs Labs Labs: Blood Type O POSITIVE Antibody Screen NEGATIVE Hct 34.3 % (37-47) L Hgb 11.8 g/dL (12.0-15.0) L Pap Smear Negative Obstetrics Ultrasound Syphilis Total Ab Non-reactive Rubella IgG Antibody Reactive (Nonreactive) Hep Bs Antigen Non-Reactive (Nonreactive) Hepatitis C Antibody Non-Reactive (Nonreactive) Chlamydia DNA (NOMI) Negative (Negative) N.gonorrhoeae DNA (NOMI) Negative (Negative) HIV 1&2 Antibody Non-Reactive (Nonreactive) Glucose 1 Hr 50 gm 99 mg/dL (70-140) Gest Glucose Tolerance MG/DL Rhogam given: No Miscellaneous Test Assessment & Plan (1) Encounter for induction of labor: (2) : QUALIFIERS: Weeks of gestation: 38 weeks Qualified Code(s): Z3A.38 - 38 weeks gestation of COMMENT: neg GBS. low risk. nl anatomy. (3) Supervision of low-risk : QUALIFIERS: Trimester: third trimester Qualified Code(s): Z34.93 - Encounter for supervision of normal , unspecified, third trimester COMMENT: PRR, BACILIO 09/20/24. boy PC Sofia Rizvi, Devin (4) UTI in : QUALIFIERS: Trimester: second trimester Qualified Code(s): O23.42 - Unspecified infection of urinary tract in , second trimester COMMENT: See urgent care [facility], + culture. Augmentin. Rpt culture neg (5) History of shoulder dystocia in prior : COMMENT: 8lb 14 oz, moderate, plan 39 week induction. discussed anxiety about this, consider possible primary csection if near this weight. (6) Headache in : QUALIFIERS: Trimester: third trimester Qualified Code(s): O26.893 - Other specified related conditions, third trimester; R51.9 - Headache, unspecified COMMENT: Pre E labs PLAN: Plan Patient presents IOL, plan management for with pitocin/AROM. Pain management: plans epidural. GBS negative. Management of any complications: none I have reviewed the [facility] and made any clinically relevant updates.
[2024-09-13] MEDS: Oxytocin 15 Units/NS 250ml 15 UNITS/250 ML IV.SOLN 2 UNITS IV (08:13)
[2024-09-13] MEDS: 0.9% Normal Saline Single 100 ML IV.SOLN. INTRA-UTER (08:24)
[2024-09-13 08:51] LABS: Syphilis Antibodies Nonreactive (Nonreactive)
[2024-09-13] MEDS: Lactated Ringers 1,000 ML 999 ML IV (10:55)
[2024-09-13] MEDS: fentaNYL-bupivacaine (epidural) 100 ML BAG EPIDURAL (11:49)
[2024-09-13] MEDS: Ondansetron 4 MG/2 ML Vial IV (13:30)
[2024-09-13] MEDS: Lactated Ringers 1,000 ML 200 ML IV ×2 (16:09→19:03)
[2024-09-13] MEDS: Amnioinfusion- 0.9% NS 1,000 ML IV.SOLN. 1000 ML INTRA-UTER (18:22)
--- NOTE | 2024-09-13 19:44 | EX.PCM.OBVAG ---
Assessment & Plan (1) Vaginal delivery: COMMENT: sm iol h/o SD dayanna Ramos (2) Encounter for induction of labor: (3) Headache in : QUALIFIERS: Trimester: third trimester Qualified Code(s): O26.893 - Other specified related conditions, third trimester; R51.9 - Headache, unspecified COMMENT: Pre E labs (4) History of shoulder dystocia in prior : COMMENT: 8lb 14 oz, moderate, plan 39 week induction. discussed anxiety about this, consider possible primary csection if near this weight. (5) UTI in : QUALIFIERS: Trimester: second trimester Qualified Code(s): O23.42 - Unspecified infection of urinary tract in , second trimester COMMENT: See urgent care [facility], + culture. Augmentin. Rpt culture neg (6) Supervision of low-risk : QUALIFIERS: Trimester: third trimester Qualified Code(s): Z34.93 - Encounter for supervision of normal , unspecified, third trimester COMMENT: PRR, BACILIO 09/20/24. Sofia Lieberman, Devin (7) : QUALIFIERS: Weeks of gestation: 38 weeks Qualified Code(s): Z3A.38 - 38 weeks gestation of COMMENT: neg GBS. low risk. nl anatomy. Maternal Data Information BACILIO Calculator Estimated Delivery Date Method Current WG Current Estimate 09/20/24 LMP (Certain) 39w 0d Other Estimates 09/23/24 Ultrasound #1 38w 4d Vaginal Delivery Maternal Presentation Maternal Presentation: see assessment and plan Vaginal Delivery Information Surgeon/Practitioner: Lucy Ashley Type of anesthesia: Epidural Findings Description of procedure: Patient began pushing and delivered the head in the tosha presentation. The head was delivered atraumatically . The anterior and posterior shoulders delivered without complication followed by the rest of the infant and the infant was placed on the maternal abdomen. Delayed cord clamping was employed for approximately 60 seconds. Cord was clamped and cut and gentle traction was applied to the cord and the placenta delivered spontaneously immediately following it was noted to be intact with three-vessel cord. The perineum and vagina were inspected and noted to have no laceration. EBL was 100 cc. Patient and tolerated delivery well. 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
--- NOTE | 2024-09-13 19:45 | DCINST_ITS ---
Discharge Instructions Diet Discharge Diet: No restrictions DC O2, CPAP, BIPAP needs Home O2 Discharge instructions: No Dressing / Incision Discharge Activity: Return to Normal Activity, May Not Drive (while taking narcotic pain medications.) and May Shower May resume sexual activity in: 4-6 weeks Dressing / Incision Call your doctor if your incision/area has: Continuous Slow Oozing, Sudden Increased Bleeding, Increased Pain/ Swelling, Increased Redness and Foul Smelling Discharge Follow Up Care Please Follow Up With: Lucy Ashley MD When: Call [phone] to make an appointment with your doctor in 6 weeks. If you had elevated blood pressure or 4th degree laceration, you will need to be seen in 2 weeks. Test Results: Test results from this visit will be discussed in further detail at your follow- up appointment, if applicable. Discharge Plan Admission Admit Date/Time: 09/13/24 07:14 Attending Provider: Lucy Ashley Primary Care Provider: Kenneth Marti Discharge Orders/Prescriptions Prescriptions: No Action PNV-DHA 27 mg iron-1 mg -300 mg capsule 1 cap PO DAILY Referrals / Follow Up: Kenneth Marti DO [Primary Care Provider] -
[2024-09-13] MEDS: Oxytocin 15 Units/NS 250ml 15 UNITS/250 ML IV.SOLN 83 UNITS IV (19:50)
[2024-09-13] MEDS: Acetaminophen 500 MG Tablet 1000 MG PO (22:44)
[2024-09-13] MEDS: Naproxen 500 MG Tablet PO (23:08)
[2024-09-14 04:30] VITALS: BP 91/62; PULSE 63; RESP 16; TEMP 36.3; O2SAT 98
[2024-09-14] MEDS: Acetaminophen 500 MG Tablet 1000 MG PO (04:37)
--- NOTE | 2024-09-14 07:51 | PN.OBGYN_ITS ---
Subjective Subjective Patient doing well without complaints. Tolerating PO. Ambulating and voiding without difficulty. Feeding well. Denies chest pain, shortness of breath, calf pain/swelling, fevers, chills, lightheadedness. Objective Data Objective Data Vital Signs: Vital Signs Temp Pulse Resp BP Pulse Ox O2 Del Method 97.3 F L 63 16 91/62 98 Room Air 09/14/24 04:30 09/14/24 04:30 09/14/24 04:30 09/14/24 04:30 09/14/24 04:30 09/14/24 04:30 Oxygen Delivery Method Room Air Weight: 168 lb 8 oz Body Mass Index (BMI) 28.9 Intake & Output: Intake and Output for Last 24 Hours 09/12/24 09/13/24 09/14/24 23:59 23:59 23:59 Intake Total 5258.34 / 5258.34 Output Total 2600 / 2600 1300 / 1300 Balance 2658.34 / 2658.34 -1300 / -1300 Lab / Micro Data 09/13/24 07:35 Labs: Laboratory Results - last 24 hr 09/13/24 07:35: WBC 6.3, RBC 3.88 L, Hgb 11.8 L, Hct 34.3 L, MCV 88.4, MCH 30.4, MCHC 34.4, RDW Std Deviation 42.7, RDW Coeff of Sg 13.3, Plt Count 160, MPV 10.8, Immature Gran % (Auto) 1.300 H, Neut % (Auto) 67.2, Lymph % (Auto) 24.7, Robertson % (Auto) 5.3, Eos % (Auto) 1.0, Baso % (Auto) 0.5, Absolute Neuts (auto) 4.2, Absolute Lymphs (auto) 1.55, Nucleated RBC % 0, Syphilis Total Ab Nonreactive, Blood Type O POSITIVE, Antibody Screen NEGATIVE Physical Exam Const alert and oriented x3 HEENT normocephalic Eyes PERRL Neck full ROM Resp normal respiratory effort GI soft to palpation GI Narrative: FF below U Assessment & Plan (1) Vaginal delivery: COMMENT: sm iol h/o SD boy Everhett PLAN: Plan s/p PPD # 1 1. routine post delivery care 2. breast feeding- support given 3. rh positive 4. rubella immune 5. home today
[2024-09-14] MEDS: Naproxen 500 MG Tablet PO (07:55)
[2024-09-14 08:31] VITALS: BP 98/68; PULSE 74; RESP 16; TEMP 35.9
[2024-09-14 12:25] VITALS: BP 100/74; PULSE 78; RESP 16; TEMP 36.1
[2024-09-14 18:00] VITALS: BP 104/77; PULSE 78; RESP 16; TEMP 36.2
--- NOTE | 2024-09-19 10:23 | CASEMGMT ---
Social Work Assessment Labor and Delivery Unit Patient Address:[address] [place] [address] [address] [place] [address] Phone number: [phone] Date of Referral: 09/13/24 Time of Referral:? 1245 Referred By: Dr. Ashley Date of Intervention: ?09/14/24 Time of Intervention:? 1410 Reason for Referral:? hx of depression, anxiety/ depression Sw completed chart review and acknowledges social work consult due to maternal mental health history. Sw introduced self to mother of baby (MOB- Jordyn) and father of baby (FOB- Devin). Sw explained reason for sw involvement and completed psychosocial assessment. History obtained from: medical records, MOB and FOB Household composition: Currently residing in the home is ENRIQUETA, MABEL, their two older children: Sofia (5) and Dmitri (1). baby to be included in residence when ready for discharge. Parents deny any problems or concerns, stating that it is safe and secure. Patient's parent/guardian status:? ?MOB and FOKiki state that they have been together for four years after meeting each other on FaceBook. No concerns reported regarding domestic violence and intimate partner violence. Medical History: ?ENRIQUETA is 29 year old female who is 3, para 2- now 3 following labor and delivery of . ENRIQUETA received routine care during with [facility]. ENRIQUETA presented to hospital for induction of labor on 09/13/24 and delivered baby via vaginal delivery at 39 weeks gestation. Baby boy, named Rachel Oshea, was born weighing 7lb 11oz with apgars of 8 and 9 at one and five minutes of life, respectfully. ENRIQUETA reports that feeding is going well and baby will be followed by Dr. Vallejo for pediatrics. Educational Status:? Both parents graduated from high school, no concerns reported with reading, learning or comprehension Financial Status: Both parents are gainfully employed outside of the home. 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 Infant Supplies:?? All necessary baby supplies obtained, including: car seat, safe sleep space, clothes, diapers and wipes Childcare/Caregiver(s):? ENRIQUETA states that she will be the primary caregiver to baby, along with FOB. Transportation:?? Both parents have their drivers license and reliable means of transportation, no barriers at this time. Programs/Agencies Involved: ?ENRIQUETA is connected to insurance through [employer] and has WIC. ?? Children Services/Legal Issues:???No history of children services involvement, no issues or concerns warranting referral to be made at this time. Behavioral Health Issues: ??Mental Health History: FOKiki denies mental health history, ENRIQUETA states that she has been diagnosed with anxiety, depression and did experience depression after her first daughter was born. ENRIQUETA states that she did not have any baby blues or depression or anxiety after her second baby was born, just over a year ago. ENRIQUETA has previously been prescribed citalopram, but is not prescribed medications at this time. ENRIQUETA reports that she has been feeling great during and thus far following delivery. ENRIQEUTA states that she has supports and services in place and is not worried about struggling with her mental health following this delivery. ENRIQUETA is connected to counseling services at [facility] for therapy and mental health support. ??? Substance Use History:?Parents deny substance use prior to and during . ? Family History:?Parents deny family history of substance use or significant mental health diagnoses. ? Drug Screens: ??No drug screens observed while completing chart review. Family/Social Stressors:? ENRIQUETA reports that right now she is feeling great, and feels supported by FOB. MOB states that the last year has been really busy with them continuing to work on the [place] that they have been living in. MOB states that most of the interior work is finished, except for the kitchen and front porch. FOB states that this will be a bigger project that they may put off for a while longer. Support Systems: MOB states that FOB and paternal grandma are their biggest supports. Depression/Shaken Baby/Safe Sleeping:? Sw educated parents on signs and symptoms of baby blues and depression and anxiety. Parents state that they are familiar with recognizing what symptoms to be on the lookout for. ENRIQUETA states that she struggled with her first baby, however her circumstances were different at that time. MOB states that now she is in a secure relationship where FOB is her best friend and helps her recognize when she is struggling with her mental health. MOB states that she has felt as though her mental health has been managed during her and believes that her journey will also go smoothly. FOB states that if MOB were to struggle with her mental health during this time he would be able to recognize what that looks like and would know how to help and support her. Sw talked to parents about ABCs of safe sleep and shaken baby prevention, parents express understanding. ASSESSMENT:?MOB and baby admitted following labor and delivery of . MOB was observed to be laying on bed comfortably and holding baby in loving and attentive manner. FOB laying comfortably on couch, both parents receptive to meeting with sw to complete psychosocial assessment. This is third baby for MOB, and second for MOB and FOB together. 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 MOB reports that her mental health has been managed for a few years. ENRIQUETA has history of being prescribed citalopram but has not required it for a while at this point. MOB states that if she were to struggle she would feel comfortable talking to FOB and her counselor. MOB denies feeling down, sad or anxious since delivery. MOB states that she feels a ross with baby and his happy that he is here. MOB and FOB both talkative and engaging throughout completion of assessment. PLAN:? No other services requested or indicated. MOB and baby to be discharged when medically ready. Parents were provided literature regarding: signs and symptoms of baby blues and mood and anxiety disorders, Help Me Grow, shaken baby prevention, ABCs of safe sleep and a list of county resources that are available for them should any needs present themselves. Renata Reid, TECHNICAL MGR, AUTOMATIC SPINNING LATHE SETTER
== END 2024-09-14 20:16 | disposition home or self-care (01) | DRG 560 ==
PROVIDERS: Admitting Provider Obstetrics & Gynecology; PCP Student in an Organized Health Care Education/Training Program; Referring Provider Obstetrics & Gynecology; Visit Provider Obstetrics & Gynecology
DX: O99.344 Other mental disorders complicating childbirth (principal); Z37.0 Single live birth; F41.9 Anxiety disorder, unspecified; Z87.59 Personal history of other complications of pregnancy, childbirth and the puerperium; Z86.59 Personal history of other mental and behavioral disorders; Z87.440 Personal history of urinary (tract) infections; Z3A.39 39 weeks gestation of pregnancy
CPT/HCPCS: 59025; 59050; 85025; 86780; 86850; 86900; 86901; 99221; G0378; J2405